=== PATIENT | male | born 1990 | race Caucasian/White ===

== ENCOUNTER 2025-03-14 08:49 | Emergency (ER) | payer OTHER, SELFPAY ==
--- OUTSIDE RECORDS SUMMARY | 2025-01-27 08:20 | XMS_ITS ---
Author Organization [facility] Address [address] [place] [address] Phone [phone] Care Team Providers Care Peoplesoft Consultant Name Role Phone Rojas Alexis Primary Care Provider [phone] Melania Nayak APRN REASON FOR VISIT MAT F/U Social History Sex Observation Social History Observation Description Sex Observation Male Encounters Date Time Type Facility Location Provider Diagnosis 01/27/2025 08:20 AM Office Visit [facility] [address] [place] [address] Melania Nayak Plan Of Treatment Next Appt Details Provider Name:Melania jacques, 03/23/2025 08:40:00 AM, [address], [place], [address], Provider Name:Anni powell, 04/01/2025 08:20:00 AM, [address], [place], [address], Medical (General) History Medical History History ICD Code chronic anxiety depression Opioid use disorder Generalized anxiety disorder Insomnia Constipation Alcohol use disorder Surgical History Surgery Date(Month/Year) Hospitalization History Reason Date(Month/Year) Touchette 10/2024 Alcohol detox, [facility], 1 Progress Notes * Kwasi MCCABEDOB:1990 (34 yo M)Acc No.[id number]:01/27/2025 UNLOCKED PROGRESS NOTE Patient: Kwasi EARLY Provider: Panda Nayak, MSN, DAVIAN, RESTAURANT ASSISTANT-C :1990 A ge:34 Y S ex:Male Date:01/27/2025 Phone: Address:[address] [place], [place] [phone] Pcp:Rojas Alexis Subjective: * Chief Complaints: * 1 . MAT F/U. * Screening: * * Medical History: Objective: * Vitals: Assessment: Plan: * Treatment: * Care Plan Details* * Electronic signature of Julienne Nayak APRN, [id number] on 03/14/2025 at 12:55 PM FUR SORTER Sign off status: Pending * Provider: NICOLE Monsalve, DAVIAN, RESTAURANT ASSISTANT-C Date: 03/29/2024 Generated for Marlo feldman/Farzana/eTransmitting on: 05/15/2024 12:55 PM FUR SORTER
--- OUTSIDE RECORDS SUMMARY | 2025-03-08 14:55 | XMS_ITS ---
Author Organization [facility] Address [address] [place] [address] Phone [phone] Care Team Providers Care Authorization Nurse Name Role Phone Rojas Alexis Primary Care Provider [phone] REASON FOR VISIT hosp need f/u psyche Social History Sex Observation Social History Observation Description Sex Observation Male Encounters Date Time Type Facility Location Provider Diagnosis 03/08/2025 02:55 PM Telephone Encounter [facility] [address] [place] [address] Rojas Alexis Plan Of Treatment Next Appt Details Provider Name:Melania jacques, 03/23/2025 08:40:00 AM, [address], [place], [address], Provider Name:Anni powell, 04/01/2025 08:20:00 AM, [address] [place], [address], Medical (General) History Medical History History ICD Code chronic anxiety depression Opioid use disorder Generalized anxiety disorder Insomnia Constipation Alcohol use disorder Surgical History Surgery Date(Month/Year) Hospitalization History Reason Date(Month/Year) Touchette 10/2024 Alcohol detox, [facility], 2024--0 1 Progress Notes * Kwasi MCCABEDOB:1990 (34 yo M)Acc No.[id number]:03/08/2025 UNLOCKED PROGRESS NOTE Patient: Kwasi EARLY :1990 A ge:34 Y S ex:Male Phone: Address:[address] [place] [address], [address] Subjective: * Chief Complaints: * H osp need f/u psyche * HPI: E R/Hospital Follow-up: ER/Hopsital/Urgent Care follow-up. Notification of ER/hospital visit from: . , Records received. I f instructed by nurse/provider, did the pt go to ER/UC? E R/Urgent Care follow-through The nurse or provider did not initiate the ER/urgent care visit. .. D ate of ER/urgent visit or hospitalization: 05/02/24. R ashleigh for the Visit: . hospital stay at [facility]. Visit Type and Location: . , Inpatient [...] . . E R/Hospital F/U appointment with [facility]: Paresh [facility] f/u appointment date: 05/10/2024with Anni. A ppointment Kept? D id the patient keep the appointment with [facility]? .. N gil completing [facility] Viridiana Cm, RN ., C [facility] Nurses .. * Medical History: * [...] recommended f/u: . ER/Hospital F/U appointment with [facility]: [facility] f/u appointment date:: 03/09/202504/01/giacomo Hutton Notification of ER/hospital visit from: ., Records received Reason for the Visit: .ho spital stay at [facility] Date of ER/urgen t visit or hospitalization: 03/01/[address] [facility] Nurses: Kate Cm RN . [place] [facility] Nurses: . If instructed by nurse/provider, did the pt go to ER/UC? ER/Urgent Care follow-throug h: The nurse or provider did not initiate the ER/urgent care visit. . Appointment Kept? Did the patient keep the appointment with [facility]?: .
--- OUTSIDE RECORDS SUMMARY | 2025-03-09 13:00 | XMS_ITS ---
Author Organization [facility] Address [address] [place] [address] Phone [phone] Care Team Providers Care Gas Pumping Station Operator Name Role Phone Rojas Alexis Primary Care Provider [phone] REASON FOR VISIT last seen on CRU [...] Provider Diagnosis 03/09/2025 01:00 PM Office Visit [facility] [place] [address] [place] [address] Rojas Alexis Plan Of Treatment Next Appt Details Provider Name:Melania jacques, 03/23/2025 08:40:00 AM, [address], [place], [address], Provider Name:Anni powell, 04/01/2025 08:20:00 AM, [address], [place], [address], Medical (General) History Medical History History ICD Code chronic anxiety depression Opioid use disorder Generalized anxiety disorder Insomnia Constipation Alcohol use disorder Surgical History Surgery Date(Month/Year) Hospitalization History Reason Date(Month/Year) [facility] 10/2024 Alcohol detox, [facility], 2024-12-0 1 Progress Notes * Kwasi MCCABEDOB:1990 (34 yo M)Acc No.[id number]:03/09/2025 UNLOCKED PROGRESS NOTE Progress Notes Patient: Kwasi EARLY Provider: Joshua Alexis APN :1990 A ge:34 Y S ex:Male Date:03/09/2025 Phone: Address:[address] [place], [place] [phone] Subjective: * Chief Complaints: * 1 . [...] * Electronic signature of Darrion Alexis on 03/14/2025 at 12:55 PM INSIDE SALES ADVERTISING EXECUTIVE Sign off status: Pending * Provider: Joshua Alexis APN Date: 1 05/10/2024 Generated for Marlo feldman/Farzana/Michael on: 05/15/2024 12:55 PM INSIDE SALES ADVERTISING EXECUTIVE
[2025-03-14 08:54] VITALS: BP 151/93; PULSE 108; RESP 16; TEMP 36.6; O2SAT 99
--- NOTE | 2025-03-14 10:43 | ED.RECABL ---
HPI - Recheck/Abnormal Lab/Rx General Chief Complaint: Recheck/Abnormal Lab/Rx Stated Complaint: med refill Time Seen by Provider: 03/14/25 09:57 Source: patient Mode of arrival: ambulatory Limitations: no limitations History of Present Illness HPI narrative: Patient is a 34-year-old male who presents to the ED needing medication refill. Patient reports he was recently admitted to [facility] for treatment of his depression and anxiety. He is currently on Lexapro and hydroxyzine, but was also started on clonazepam b.i.d. while at the facility. States he was only given a 5 day supply of this medication. States he is unable to see his psychiatrist through [place] until April 07. He does feel the clonazepam has been helping his anxiety. He denies any SI or HI. Related Data Allergies Allergy/AdvReac Type Severity Reaction Status Date / Time No Known Allergies Allergy Verified 03/14/25 09:38 Review of Systems Review of Systems: All systems reviewed & are unremarkable except as noted in HPI. All systems reviewed & are unremarkable except as noted in HPI and below Exam Narrative: GENERAL: Well appearing, well-nourished, non-toxic, in no acute distress. HEAD: Normocephalic, atraumatic. RESPIRATORY: Airway patent, respirations nonlabored. CARDIOVASCULAR: Regular rate and rhythm MUSCULOSKELETAL: Moves all extremities. No gross deformities. SKIN: Warm, dry, normal color. NEURO: A&O X3. Speech clear. Cranial nerves II-XII grossly intact. Steady gait. No ataxic movements. PSYCHIATRIC: Mildly anxious. Normal interaction. Course Vital Signs Vital signs: Vital Signs Temperature 97.8 F 03/14/25 08:54 Pulse Rate 108 H 03/14/25 08:54 Respiratory Rate 16 03/14/25 08:54 Blood Pressure 151/93 H 03/14/25 08:54 Pulse Oximetry 99 03/14/25 08:54 Oxygen Delivery Room Air 03/14/25 08:54 Temperature 97.8 F 03/14/25 08:54 Pulse Rate 85 03/14/25 11:16 Respiratory Rate 19 03/14/25 11:16 Blood Pressure 140/81 03/14/25 11:16 Pulse Oximetry 100 03/14/25 11:16 Oxygen Delivery Room Air 03/14/25 08:54 MDM MDM Narrative Medical decision making narrative: Patient presented to ED wanting medication refill of clonazepam, was recently started on this, but only given short supply. Unable to see psychiatrist until April 07. Patient does not appear acutely psychotic. Denying SI/HI. Alert and oriented, resting comfortably upon my evaluation. Advised I can only provide short course of controlled substance through the ER, but feel it is reasonable to prescribe additional 1 week refill of this medication. Advised patient will need to follow-up with psychiatrist or primary care doctor for continued refills. Patient voiced understanding of this and was very reasonable. Discussed strict return precautions. Patient discharged in stable condition. Differential Diagnosis Differential Diagnosis: Anxiety, depression, suicidal ideation, medication refill Medical Records I have reviewed the following patient records and this information was taken into consideration when formulating the assessment and plan.: previous labs, previous ER visits, previous hospitalizations and previous clinic visits Lab Data [facility] Lab Attestation statement: I personally reviewed the patient's lab results. Discharge Plan Discharge Clinical Impression: Encounter for medication refill, Anxiety Patient Disposition: Home Condition: Stable Instructions: Antibiotic Form, Anxiety (ED) Additional Instructions: Take anxiety medication as prescribed. Follow-up with your psychiatrist for further evaluation. You may also try to follow-up with primary care doctor that is listed below. Return to ED for new or worsening concerns, severe anxiety, thoughts of wanting to harm herself or anyone else, or any other symptoms of concern. Patient Language: Bulgarian Prescriptions: New clonazepam [Klonopin] 1 mg tablet 1 mg PO BID 7 Days Qty: 14 0RF Follow-up/Referrals: PHYSICIAN NOT ON STAFF,NONSTAFF [Non-Staff] Uday Miranda MD [Physician, Family Practice] Time of Disposition: 11:11
[2025-03-14 11:16] VITALS: BP 140/81; PULSE 85; RESP 19; O2SAT 100
--- OUTSIDE RECORDS SUMMARY | 2025-03-14 12:55 | XMS_ITS | Clinical Summary ---
Author Organization [facility] Address [address] [place] [address] Care Team Providers Care Promotional Model Name Role Phone No, Physician Primary Care Provider [phone] Allergies No known active allergies Medications docusate sodium (COLACE) 100 mg capsule Take 1 capsule (100 mg total) by mouth daily as needed for constipation Active hydrOXYzine (VISTARIL) 25 mg capsule Take 1 capsule (25 mg total) by mouth 3 (three) times a day as needed for anxiety 30 capsule 02/24/20 25 Active buprenorphine- naloxone (SUBOXONE) 8-2 mg per SL tablet Place 1 tablet under the tongue 4 (four) times a day 15 tablet 02/24/[address] (CYMBALTA) 20 mg capsule Take 1 capsule (20 mg total) by mouth 2 (two) times a day 60 capsule 02/24/20 25 Active escitalopram (LEXAPRO) 20 mg tablet Take 1 tablet (20 mg total) by mouth every morning 60 tablet 02/24/20 25 Active QUEtiapine XR (SEROquel XR) 150 mg 24 hr tablet Take 1 tablet (150 mg total) by mouth nightly 30 tablet 02/24/[address] (CYMBALTA) 20 mg capsule Take 1 capsule (20 mg total) by mouth 2 (two) times a day 025 Discontinued QUEtiapine XR (SEROquel XR) 150 mg 24 hr tablet Take 1 tablet (150 mg total) by mouth nightly 025 Discontinued escitalopram (LEXAPRO) 20 mg tablet Take 1 tablet (20 mg total) by mouth every morning 025 Discontinued hydrOXYzine (VISTARIL) 25 mg capsule Take 1 capsule (25 mg total) by mouth 3 (three) times a day as needed for anxiety 025 Discontinued buprenorphine- naloxone (SUBOXONE) 8-2 mg per SL tablet Place 1 tablet under the tongue 4 (four) times a day 025 Discontinued Active Problems Problem Noted Date Diagnosed Date Alcohol use disorder 02/21/2025 Assessment & Plan (02/21/2025 3:32 PM DRIP BOX TENDER): -CIWA -Electrolytes unremarkable on presentation -Warm and of consult will use Valium instead of IV Ativan Substance use disorder 02/21/2025 Assessment & Plan (02/21/2025 3:32 PM DRIP BOX TENDER): History of opioid use disorder -Continue Suboxone -UDS with benzos and cannabis Encounters Date Type Department Care Team Description 03/08/2025 11:18 PM DRIP BOX TENDER - 03/08/2025 11:59 PM DRIP BOX TENDER Hospital Encounter [facility] Emergency, Room R Discharge Disposition: Discharge to home or self care 02/23/2025 Documentation [facility] [address] [place] [address] Bree Ca 02/22/2025 [facility] Enrollment [facility] [address] [place], [place] [phone] Mark Wood, DATA ARCHITECT MANAGER 02/21/2025 1:25 PM DRIP BOX TENDER - 02/23/2025 8:15 AM DRIP BOX TENDER Hospital Encounter [facility] [address] [place] [address] Sandeep Garcia MD Shaba, Winnie, MD Alcohol use disorder (Primary Dx); Substance use disorder Discharge Disposition: Discharge to an IP Rehab facility 02/21/2025 Documentation [facility] [address] [place] [address] Chelsea Ashton 02/21/2025 Documentation [facility] [address] [place] [address] Bree Ca from Last 3 Months Social History Tobacco Use Types Packs/Day Years Used Date Smoking Tobacco: Every Day E-cigarettes Smokeless Tobacco: Never Tobacco Cessation:Ready to Q uit: Not Asked; Counseling Given: Not Answered Social Connection and Isolation Panel Answer Date Recorded In a typical week, how many times do you talk on the phone with family, friends, or neighbors? Twice a week 02/22/2025 How often do you get together with friends or re latives? Once a week 02/22/2025 How often do you attend mormon or gnosticist serv ices? Never 02/22/2025 Do you belong to any clubs o r organizations such as mormon groups, unions, fraternal or athletic groups, or school groups? No 02/22/2025 How often do you attend meet ings of the clubs or organizations you belong to? Never 02/22/2025 Marital Status Never 02/22/2025 Overall Financial Resource Strain (CARDIA) Answe r Date Recorded How hard is it for you to pa y for the very basics like food, housing, medical care, and heating? Hard 02/22/2025 Hunger Vital Sign Answer Date Recorded Within the past 12 months, y ou worried that your food would run out before you got the money to buy more. Sometimes true Within the past 12 months, t he food you bought just didn't last and you didn't have money to get more. Sometimes true 04/2024 PRAPARE - Transportation Answer Date Re corded In the past 12 months, has l ack of transportation kept you from medical appointments or from getting medications? Yes 04/2024 In the past 12 months, has l ack of transportation kept you from meetings, work, or from getting things needed for daily living? Yes 02/22/2025 Housing Stability Vital Sign Answer Dhruv e Recorded In the last 12 months, was t here a time when you were not able to pay the mortgage or rent on time? Yes 02/22/2025 In the past 12 months, how m any times have you moved where you were living? 2 02/22/2025 At any time in the past 12 m [facility], were you homeless or living in a fdc (including now)? Yes 02/22/2025 [facility] Utilities Answer Date Recorded In the past 12 months has th e electric, gas, oil, or water company threatened to shut off services in your home? Yes 02/22/2025 Personal Safety Answer Date Recorded Have you ever been in or are you currently in a harmful physical or emotional relationship or is someone making you feel afraid or unsafe? Denies 02/21/2025 Sex and Gender Information Value Date Recorded Sex Assigned at Not on file Legal Sex Male 12:52 PM CDT Gender Identity Not on file Sexual Orientation Not on file Last Filed Vital Signs Vital Sign Reading Time Taken Comments Blood Pressure 120/70 02/22/2025 10:49 PM DRIP BOX TENDER Pulse 64 02/22/2025 10:49 PM DRIP BOX TENDER Temperature 36.8 C (98.2 F) 02/22/2025 10:49 PM DRIP BOX TENDER Respiratory Rate 16 02/22/2025 10:49 PM DRIP BOX TENDER Oxygen Saturation 100% 02/22/2025 10:49 PM DRIP BOX TENDER Inhaled Oxygen Concentration - - Weight 93 kg (205 lb) 02/21/2025 11:21 AM DRIP BOX TENDER Height 175.3 cm (5' 9) 02/21/2025 8:30 PM DRIP BOX TENDER Body Mass Index 30.27 02/21/2025 11:21 AM DRIP BOX TENDER Plan of Treatment Health Maintenance Due Date Last Done Comments Depression Screening 1990 Hepatitis C Screening 1990 DTaP/Tdap/Td Vaccine (5 - Tdap) 2001 01/04/1994, 02/04/1992, 12/17/1991, Additional history exists Varicella Vaccines (1 of 2 - 13+ 2-dose series) 12/27/2003 Regular Well Visit/Exam 18-64 2008 Pneumococcal vaccine <65 (1 of 2 - PCV) 2009 HPV Vaccines (1 - 3-dose SCD M series) 2017 Influenza Vaccine (#1) 2024 Hepatitis B Screening Completed 11/03/2001 Procedures Procedure Name Priority Date/Time Associated Diagnosis Comments DRUGS OF ABUSE SCREEN, URINE WITHOUT CONFIRMATION STAT 02/21/2025 12:23 PM DRIP BOX TENDER EGFR STAT 02/21/2025 11:30 AM DRIP BOX TENDER DIFFERENTIAL AUTO STAT 02/21/2025 11: 30 AM DRIP BOX TENDER SALICYLATE LEVEL STAT 02/21/2025 11:3 0 AM DRIP BOX TENDER ETHANOL STAT 02/21/2025 11:30 AM DRIP BOX TENDER ACETAMINOPHEN LEVEL STAT 02/21/2025 1 1:30 AM DRIP BOX TENDER COMPREHENSIVE METABOLIC PANEL STAT 02/21/2025 11:30 AM DRIP BOX TENDER CBC WITH AUTO DIFFERENTIAL STAT 02/21/2025 11:30 AM DRIP BOX TENDER from Last 3 Months Results * (ABNORMAL) Drugs of Abuse Screen, Urine without Confirmation (02/21/2025 12:23 PM DRIP BOX TENDER) [facility] Amphetamine, ur Not Detected CutOff 500ng/mL Comment: Interpretive Data - Amphetamines: Samples containing greater than 500 ng/mL d-methamphetamine or other cross-reacting amphetamine compounds are reported as positive. Amphetamine immunoassays are subject to significant false positive rates due to cross-reactivity of non-amphetamine drugs. Confirmatory testing required for definitive results. Current Interpretive Data was last reviewed 2022. Barbiturates, ur Not Detected CutOff 200ng/mL [facility] ([facility]) Comment: Interpretive Data - Barbiturates: Samples containing greater than 200 ng/mL secobarbital or other cross-reacting barbiturate compounds are reported as positive. False positive and false negative results are possible. Confirmatory testing required for definitive results. Current Interpretive Data was last reviewed 2022. Benzodiazepines, ur Screen Positive, presumptive (A) CutOff 100ng/mL [facility] ([facility]) Comment: Interpretive Data - Benzodiazepines: Samples containing greater than 100 ng/mL nordiazepam or other cross-reacting compounds are reported as positive. False positive and false negative results are possible. Confirmatory testing required for definitive results. Current Interpretive Data was last reviewed 2022. Cannabinoids, ur Screen Positive, presumptive (A) CutOff 50 ng/mL [facility] ([facility]) Comment: Interpretive Data - Cannabinoids: Samples containing greater than 50 ng/mL delta-9 THC -COOH or other cross- reacting compounds are reported as positive. False positive and false negative results are possible. Confirmatory testing required for definitive results. Current Interpretive Data was last reviewed 2022. Cocaine, ur Not Detected CutOff 150ng/mL [facility] ([facility]) Comment: Interpretive Data - Cocaine: Samples containing greater than 150 ng/mL benzoylecgonine or other cross- reacting compounds are reported as positive. False positive and false negative results are possible. Confirmatory testing required for definitive results. Current Interpretive Data was last reviewed 2022. Fentanyl, Ur Not Detected CutOff 5 ng/mL [facility] ([facility]) Comment: Interpretive Data - Fentanyl: Samples containing greater than 5 ng/mL norfentanyl, fentanyl, or other cross-reacting fentanyl compounds are reported as positive. False positive and false negative results are possible. Confirmatory testing required for definitive results. Current Interpretive Data was last reviewed 2023. Methadone, ur Not Detected CutOff 300ng/mL [facility] ([facility]) Comment: Interpretive Data - Methadone: Samples containing greater than 300 ng/mL d,l-methadone or other cross-reacting compounds are reported as positive. False positive and false negative results are possible. Confirmatory testing required for definitive results. Current Interpretive Data was last reviewed 2022. Opiates, ur Not Detected CutOff 300ng/mL [facility] ([facility]) Comment: Interpretive Data - Opiates: Samples containing greater than 300 ng/mL morphine or other cross-reacting compounds are reported as positive. False positive and false negative results are possible. Confirmatory testing required for definitive results. Current Interpretive Data was last reviewed 2022. Oxycodone, ur NOT DETECTED CutOff 100ng/mL [facility] ([facility]) Comment: Interpretive Data - Oxycodone: Samples containing greater than 100 ng/mL oxycodone or other cross-reacting compounds are reported as positive. False positive and false negative results are possible. Confirmatory testing required for definitive results. Current Interpretive Data was last reviewed 2022. Phencyclidine, ur Not Detected CutOff 25 ng/mL [facility] ([facility]) Comment: Interpretive Data - Phencyclidine: Samples containing greater than 25 ng/mL phencyclidine or other cross-reacting compounds are reported as positive. False positive and false negative results are possible. Confirmatory testing required for definitive results. Current Interpretive Data was last reviewed 2022. Urine Creatinine 15 mg/dL [facility] ([facility]) Comment: Interpretive Data Urine Creatinine: < 10 mg/dL is extremely dilute = or > 10 but < 20 mg/dL is dilute = or > 20 mg/dL is normal Current Interpretive Data was last revised on 2017. Urine 02/21/2025 12:2 3 PM DRIP BOX TENDER 02/21/2025 12:25 PM DRIP BOX TENDER Narrative [facility]A QUINTA[facility] ([facility]) - 02/21/2025 1:10 PM DRIP BOX TENDER Drug of Abuse screening is performed by immunoassay for medical purposes only. This is not to be used for Pain Management purposes. Malick [facility] URINE ORDERABLES Final R esult Performing Organization Address [facility] Co de Phone Number ZOILA QUINTANA ([place]) [address] [facility] [place] [address] * eGFR (02/21/2025 11:30 AM DRIP BOX TENDER) eGFR >90 >=60 mL/min/1. 73 m2 Comment: Interpretive Data Reference Interval Normal >/= 90 mL/min/1.73m2 Mildly decreased* 60 - 89 mL/min/1.73m2 Mildly to moderately decreased 45 - 59 mL/min/1.73m2 Moderately to severely decreased 30 - 44 mL/min/1.73m2 Severely decreased 15 - 29 mL/min/1.73m2 Kidney Failure < 15 mL/min/1.73m2 *Relative to young adult level Estimated glomerular filtration rate is determined by the 2020 CKD-EPI equation recommended by the National Kidney Foundation (A Unifying Approach to GFR Estimation: Recommendations of the NKF-ASK Task Force on Reassessing the Inclusion of Race in Diagnosing Kidney Disease, JASN 2020). The CKD-EPI equation should not be used for patients with unstable renal function and has not been validated in children and those over 70. Current interpretive data was last reviewed 2021. Blood 02/21/2025 11:3 0 AM DRIP BOX TENDER 02/21/2025 11:34 AM DRIP BOX TENDER Mal[facility] BLOOD ORDERABLES Final R esult Performing Organization Address [facility] Co de Phone Number ZOILA QUINTANA ([place]) [address] [facility] [place] [address] * Differential, auto (02/21/2025 11:30 AM DRIP BOX TENDER) Neutrophil abs 4.56 1.50 - 6.50 K/cumm Imm gran abs 0.01 0.00 - 0.10 K/cumm [facility] ([facility]) Lymphocyte abs 2.59 0.80 - 3.30 K/cumm [facility] ([facility]) Monocyte abs 0.52 0.20 - 0.80 K/cumm [facility] ([facility]) Eosinophil abs 0.27 0.00 - 0.50 K/cumm [facility] ([facility]) Basophil abs 0.03 0.00 - 0.10 K/cumm [facility] ([facility]) Neutrophil pct 57.1 % [facility] ([facility]) Comment: Interpretive Data Percent cell count reference ranges are not reported, since discordance with absolute values may lead to misinterpretation of CBC data. Current Interpretive Data was last revised on 2017. Imm gran pct 0.1 % [facility] ([facility]) Comment: Interpretive Data Percent cell count reference ranges are not reported, since discordance with absolute values may lead to misinterpretation of CBC data. Current Interpretive Data was last revised on 2017. Lymphocyte pct 32.5 % [facility] ([facility]) Comment: Interpretive Data Percent cell count reference ranges are not reported, since discordance with absolute values may lead to misinterpretation of CBC data. Current Interpretive Data was last revised on 2017. Monocyte pct 6.5 % [facility] ([facility]) Comment: Interpretive Data Percent cell count reference ranges are not reported, since discordance with absolute values may lead to misinterpretation of CBC data. Current Interpretive Data was last revised on 2017. Eosinophil pct 3.4 % [facility] ([facility]) Comment: Interpretive Data Percent cell count reference ranges are not reported, since discordance with absolute values may lead to misinterpretation of CBC data. Current Interpretive Data was last revised on 2017. Basophil pct 0.4 % [facility] ([facility]) Comment: Interpretive Data Percent cell count reference ranges are not reported, since discordance with absolute values may lead to misinterpretation of CBC data. Current Interpretive Data was last revised on 2017. Blood 02/21/2025 11:3 0 AM DRIP BOX TENDER 02/21/2025 11:34 AM DRIP BOX TENDER Mal[facility] BLOOD ORDERABLES Final R esult [facility] ([facility]) 1 [facility] Department [place] [address] * (ABNORMAL) CBC with auto differential (02/21/2025 11:30 AM DRIP BOX TENDER) WBC 7.98 3.80 - 9.90 K/cumm Hgb 14.2 13.0 - 17.5 g/dL [facility] ([facility]) Hct 42.0 38.9 - 50.3 % [facility] ([facility]) Plt 202 150 - 400 K/cumm [facility] ([facility]) MPV 10.6 9.1 - 12.3 fL [facility] ([facility]) RBC 4.89 4.30 - 5.80 M/cumm [facility] ([facility]) MCV 85.9 81.3 - 96.4 fL [facility] ([facility]) MCH 29.0 27.1 - 33.3 pg [facility] ([facility]) MCHC 33.8 32.3 - 35.7 g/dL [facility] ([facility]) RDW CV 12.6 11.1 - 14.9 % [facility] ([facility]) RDW SD 39.4 35.7 - 48.1 fL [facility] ([facility]) NRBC abs 0.02(H) 0.00 - 0.01 K/cumm [facility] ([facility]) Blood 02/21/2025 11:3 0 AM DRIP BOX TENDER 02/21/2025 11:34 AM DRIP BOX TENDER Malick [facility] BLOOD ORDERABLES Final R esult [facility] ([facility]) 1 [facility] [place] [address] * Ethanol (02/21/2025 11:30 AM DRIP BOX TENDER) Ethanol <10 <=10 mg/dL Comment: Interpretive Data Legal limit of intoxication > or = 80 mg/dL Levels > or = 400 mg/dL are potentially TOXIC. Current interpretive data was last revised on 2018. Blood 02/21/2025 11:3 0 AM DRIP BOX TENDER 02/21/2025 11:34 AM DRIP BOX TENDER Malick [facility] BLOOD ORDERABLES Final R esult [facility] ([place]) [address] [facility] [place] [address] * Acetaminophen level (02/21/2025 11:30 AM DRIP BOX TENDER) Acetaminophen <5 <=5 mcg/mL Comment: Markedly elevated levels of Acetaminophen and it's metabolites may lead to false low test results for cholesterol, HDL, triglycerides and uric acid with the manufacturers test methods used by our lab. Interpretive Data Significant hepatic injury may occur and treatment with n-acetyl cysteine is generally recommended if the acetaminophen level exceeds: 150 mcg/mL at 4 hours after ingestion 75 mcg/mL at 8 hours after ingestion 38 mcg/mL at 12 hours after ingestion 19 mcg/mL at 16 hours after ingestion Consult toxicology or poison control ([phone]) for unknown ingestion time. Current interpretive data was last revised 2022. Blood 02/21/2025 11:3 0 AM DRIP BOX TENDER 02/21/2025 11:34 AM DRIP BOX TENDER Malick [facility] BLOOD ORDERABLES Final R esult [facility] ([place]) 1 [facility] [place] [address] * Salicylate level (02/21/2025 11:30 AM DRIP BOX TENDER) Salicylate <5.0 <=5.0 mg/dL Comment: Interpretive Data Toxic: 30 mg/dL or greater. Current interpretive data was last revised 2022. Blood 02/21/2025 11:3 0 AM DRIP BOX TENDER 02/21/2025 11:34 AM DRIP BOX TENDER us Malick [facility] LAB BLOOD ORDERABLES Final R esult [facility] ([facility]) 1 [facility] Department [place] [address] * Comprehensive metabolic panel (02/21/2025 11:30 AM DRIP BOX TENDER) Sodium 139 135 - 145 mmol/L Potassium, pl 3.9 3.3 - 4.9 mmol/L [facility] ([facility]) Chloride 99 97 - 110 mmol/L [facility] ([facility]) CO2 31 22 - 32 mmol/L [facility] ([facility]) Anion gap 9 2 - 15 mmol/L [facility] ([facility]) BUN 11 6 - 25 mg/dL [facility] ([facility]) Creatinine 0.86 0.80 - 1.30 mg/dL [facility] ([facility]) Glucose 102 70 - 199 mg/dL [facility] ([facility]) Comment: Interpretive Data Fasting glucose >/= 126 mg/dl is diagnostic for diabetes. Fasting is defined as no caloric intake for at least 8 hours. Fasting glucose between 100 mg/dl to 125 mg/dl is diagnostic of prediabetes. In a patient with classic symptoms of hyperglycemia or hyperglycemic crisis, a random glucose >/= 200 mg/dl is diagnostic for diabetes. In the absence of unequivocal hyperglycemia, results should be confirmed by repeat testing. The classification and Diagnosis of Diabetes Diabetes Care 2021; 46: S19-S40. Current interpretive data was last revised 2022. Calcium 9.4 8.5 - 10.3 mg/dL [facility] ([facility]) Bilirubin, total 0.4 0.1 - 1.2 mg/dL [facility] ([facility]) Protein, pl 7.0 6.5 - 8.5 g/dL [facility] ([facility]) Albumin 4.6 3.5 - 5.0 g/dL [facility] ([facility]) Alk phos 68 40 - 130 Units/L [facility] ([facility]) ALT 17 7 - 55 Units/L [facility] ([facility]) AST 28 10 - 50 Units/L [facility] ([facility]) Blood 02/21/2025 11:3 0 AM DRIP BOX TENDER 02/21/2025 11:34 AM DRIP BOX TENDER Malick [facility] BLOOD ORDERABLES Final R esult ZOILA QUINTANA ([place]) 1 [facility] Department [place] [address] from Last 3 Months Insurance IDPA Advance Directives For more information, please contact: [phone] * Full Code (Latest Code Status on File) Date Activated Date Inactivated Comments 02/21/2025 4:08 PM 02/23/2025 12:20 PM Care Teams Promotional Model Relationship Specialty Start Date End Date No, Physician PCP - General 10/27/24
--- OUTSIDE RECORDS SUMMARY | 2025-03-14 12:55 | XMS_ITS | Patient Health Record ---
Author Organization [facility] Address [address] [place] [address] Phone [phone] Care Team Providers Care Mirror Polisher Name Role Phone Rojas Alexis Primary Care Provider [phone] Melania Nayak APRN Unavailable [phone] Tyler Smiley Unavailable [phone] Anni Castillo Unavailable Libertad Wang Unavailable [phone] Allergies No Known Allergies Results Component Value Reference Range Flag Notes Breathalyzer Order date: 02/23/2025 Reviewed date:02/23/2025 01:23:17 PM Interpretation: Performing Lab: Notes/Report: JOSÉ MIGUEL .000 14 Panel Urine Drug Screen Order date: 02/23/2025 Reviewed date:02/23/2025 01:23:17 PM Interpretation: Performing Lab: Notes/Report: THC POS ANJELICA neg MOP (OPI) neg AMP neg MET neg BAR neg BZO POS MDMA neg MTD neg OXY neg PCP neg BUP POS TCA neg FTY neg Chlamydia trachomatis,Neisse charu gonorrhoeae, and Trichomonas vaginalis, ROX ([id number]) Order date: 02/23/2025 Reviewed date:02/25/2025 08:25:37 AM Interpretation: Performing Lab:[facility], [address] [place] [address] Jan Cortes, Phone - [phone], Director - Ana Notes/Report: Chlamydia by ROX Negative Negative Gonococcus by ROX Negative Negative Trich vag by ROX Negative Negative Rapid Plasma Reagin (RPR) Te st With Reflex to Quantitative RPR and Confirmatory Treponema pallidum Antibodies Order date: 02/23/2025 Reviewed date:02/25/2025 08:25:37 AM Interpretation: Performing Lab:[facility], Phone - [phone], Director - Ana Notes/Report: RPR Non Reactive Non Reactive 14 Panel Urine Drug Screen Order date: 12/30/2024 Reviewed date:12/30/2024 03:10:57 PM Interpretation: Performing Lab: Notes/Report: THC neg ANJELICA neg MOP (OPI) neg AMP neg MET neg BAR neg BZO neg MDMA neg MTD neg OXY neg PCP neg BUP pos TCA neg FTY neg 14 Panel Urine Drug Screen Order date: 11/25/2024 Reviewed date:11/25/2024 11:20:37 AM Interpretation: Performing Lab: Notes/Report: THC neg ANJELICA neg MOP (OPI) neg AMP neg MET neg BAR neg BZO neg MDMA neg MTD neg OXY neg PCP neg BUP POS TCA neg FTY neg TSH+Free T4 Order date: 12/09/2024 Reviewed date:12/31/2024 08:38:59 AM Interpretation: Performing Lab:[facility], [address] [place] [address], Phone - [phone], Director - Jane Notes/Report: TSH-ICMA 2.5 Reference Range: Non- Adult 0.450-4.500 Free T4 by Dialysis/Brim Presser 0.67 L This test was developed and its performance characteristics determined by [facility]. It has not been cleared or approved by the Food and Drug Administration. Reference Range: Pubertal Children and Adults: 0.8 - 1.7 CBC With Differential/Platel et* Order date: 11/09/2024 Reviewed date:11/12/2024 08:05:27 AM Interpretation: Performing Lab:[facility], [address] [facility], Phone - [phone], Director - Kvng Notes/Report: WBC 7.4 3.4-10.8 x10E3/uL RBC 4.82 4.14-5.80 x10E6/uL Hemoglobin 14.7 13.0-17.7 g/dL Hematocrit 45.1 37.5-51.0 % MCV 94 79-97 fL MCH 30.5 26.6-33.0 pg MCHC 32.6 31.5-35.7 g/dL RDW 12.9 11.6-15.4 % Platelets 202 150-450 x10E3/uL Neutrophils 67 Not Estab. % Lymphs 23 Not Estab. % Monocytes 8 Not Estab. % Eos 2 Not Estab. % Basos 0 Not Estab. % Neutrophils (Absolute) 4.9 1.4-7.0 x10E3/uL Lymphs (Absolute) 1.7 0.7-3.1 x10E3/uL Monocytes(Absolute) 0.6 0.1-0.9 x10E3/uL Eos (Absolute) 0.2 0.0-0.4 x10E3/uL Baso (Absolute) 0.0 0.0-0.2 x10E3/uL Immature Granulocytes 0 Not Estab. % Immature Grans (Abs) 0.0 0.0-0.1 x10E3/uL CMP 14 Comprehensive Metabol ic Panel* Order date: 11/09/2024 Reviewed date:11/12/2024 08:05:27 AM Interpretation: Performing Lab:[email or web address] [place], [address] [facility] [place], Phone - [phone], Director - Kvng Notes/Report: Glucose 74 70-99 mg/dL BUN 13 6-20 mg/dL Creatinine 0.78 0.76-1.27 mg/dL eGFR 121 >59 mL/min/1.73 BUN/Creatinine Ratio 17 9-20 Sodium 138 134-144 mmol/L Potassium 4.4 3.5-5.2 mmol/L Chloride 97 96-106 mmol/L Carbon Dioxide, Total 26 20-29 mmol/L Calcium 9.5 8.7-10.2 mg/dL Protein, Total 6.8 6.0-8.5 g/dL Albumin 4.2 4.1-5.1 g/dL Globulin, Total 2.6 1.5-4.5 g/dL Bilirubin, Total 0.3 0.0-1.2 mg/dL Alkaline Phosphatase 80 44-121 IU/L AST (SGOT) 50 0-40 IU/L H ALT (SGPT) 89 0-44 IU/L H HIV Screen *HIV 1, 2 Ab, p24 Ag ([id number]) Order date: 11/09/2024 Reviewed date:11/12/2024 08:05:27 AM Interpretation: Performing [facility], Phone - [phone], Director - [facility] Notes/Report: HIV Ab/p24 Ag Screen Non Reactive Non Reactive HIV-1/HIV-2 antibodies and HIV-1 p24 antigen were NOT detected. There is no laboratory evidence of HIV infection. HIV Negative QuantiFERON-TB Gold Plus ([id number]) Order date: 11/09/2024 Reviewed date:11/12/2024 08:05:27 AM Interpretation: Performing Lab:[facility], [address] [facility], Phone - [phone], Director - [facility] Notes/Report: QuantiFERON Incubation Incubation performed. QuantiFERON-TB Gold Plus Negative Negative No response to M tuberculosis antigens detected. Infection with M tuberculosis is unlikely, but high risk individuals should be considered for additional testing (ATS/IDSA/CDC Clinical Practice Guidelines, 2017). The reference range is an Antigen minus Nil result of <0.35 IU/mL. Chemiluminescence immunoassay methodology QuantiFERON Criteria QuantiFERON-TB Gold Plus is a qualitative indirect test for M tuberculosis infection (including disease) and is intended for use in conjunction with risk assessment, radiography, and other medical and diagnostic evaluations. The QuantiFERON-TB Gold Plus result is determined by subtracting the Nil value from either TB antigen (Ag) value. The Mitogen tube serves as a control for the test. QuantiFERON TB1 Ag Value 0.04 QuantiFERON TB2 Ag Value 0.05 QuantiFERON Nil Value 0.04 QuantiFERON Mitogen Value >10.00 Breathalyzer Order date: 11/09/2024 Reviewed date:11/09/2024 10:03:02 AM Interpretation: Performing Lab: Notes/Report: JOSÉ MIGUEL 0.000 Hepatitis C Virus Antibody w /Rflx to Quantitative Real-time PCR ([id number]) Order date: 11/09/2024 Reviewed date:11/12/2024 08:05:27 AM Interpretation: Performing Lab:[facility], [address] [facility], Phone - [phone], Director - Kvng Notes/Report: HCV Ab Non Reactive Non Reactive Interpretation: Not infected with HCV unless early or acute infection is suspected (which may be delayed in an immunocompromised individual), or other evidence exists to indicate HCV infection. Hepatitis B Surface Antigen (HBsAg Screen) Order date: 11/09/2024 Reviewed date:11/12/2024 08:05:27 AM Interpretation: Performing Lab:[facility], [address] [facility], [place], Phone - [phone], Director - Kvng Notes/Report: HBsAg Screen Negative Negative 14 Panel Urine Drug Screen Order date: 11/09/2024 Reviewed date:11/09/2024 10:10:44 AM Interpretation: Performing Lab: Notes/Report: THC POS ANJELICA neg MOP (OPI) neg AMP neg MET neg BAR neg BZO neg MDMA neg MTD neg OXY nweg PCP neg BUP POS TCA neg FTY neg Reason For Referral No Information Medications Medication SIG (Take, Route, Frequency, Duration) Notes Start Date End Date Diagnosis (ICD Code) Status hydrOXYzine Pamoate 25 MG Capsule 1-2 capsules [...] examination (ICD_10 - Z00.00) Active QUEtiapine Fumarate 150 MG Tablet 1 tablet [...] Opioid use disorder (ICD_10 - F11.99) Active QUEtiapine Fumarate 25 MG Tablet 1/2 to 1 tablet as needed Orally twice a day; Duration: 30 days 02/24/2025 Active hydrOXYzine Pamoate 25 mg Capsule TAKE 1 CAPSULE BY MOUTH THREE TIMES A DAY NEEDED; Duration: 30 Opioid use disorder (ICD_10 - F11.99) Active traZODone HCl 50 MG Tablet 1 tablet at bedtime as needed Orally Once a day; Duration: 30 days 02/24/2025 Active Nicotine Polacrilex 4 MG Lozenge 1 lozenge as needed for nicotine cravings Mouth/Throat Up to once per hour (maximum of 15 lozenges per day); Duration: 7 days 02/23/2025 Adult general medical examination (ICD_10 - Z00.00) Active Social History Tobacco Use: Social History Observation Description Date Details (start date - stop date) Current Smoker NA - NA Sex Observation Social History Observation Description Sex Observation Male SDOH Assessments Date Tool Assessment Assessment LOINC Value Assessment Notes Goals Interventions General Notes 02/24 YOVANNY TRIMBLE (LOIN C: 80482 -5) Total Score : 13 Please specify Case Management Follow-up Occupation: Starting new job at [employer] Occupation: Working five to six days a week Group meetings: Attends five meetings per week for recovery contract Living situation: Lives with seven other people Occupation: Currently employed, working second shift Transportat ion: No car, difficulty attending meetings Living situation: Stayed in hotel for 2-3 weeks after eviction from [facility] Drug use: Refused drug test, no substances in system at time of test Alcohol use: Relapsed, drinking daily for three weeks, up to 15 drinks per day, last drink three days ago Date Completed/Updated: 02/23/2025 What is your current housing situation? 02699-6 I do not have housing (staying with others, in a hotel, in a group home, living outside on the street, on a beach, or in a park) (VQ67924-6) Are you worried about losing your housing? 90900-0 No (LA32-8) What is the highest level of school that you have finished? 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 Check all that apply 42345-8 Food (VB74743-4) Clothing (TJ34019-2) Utilities (FF45670-4) Medicine or any health care (medical, dental, mental health or vision) (OW97367-0) Has lack of transportation k ept you from medical appointments, meetings, work or from getting things needed for daily living? 54887-8 Yes, it has kept me from medical appointments or from getting my medications (UO20484-3) Yes, it has kept me from non-medical meetings, appointments, work, or getting things needed for daily living (JX60335-7) How often do you see or talk to people that you care about and feel close to? (For example: talking to friends on the phone, visiting friends or family, going to latter day or club meetings) 89258-7 More than 5 times a week (SD74547-2) How stressed are you? Stress is when someone feels tense, nervous, anxious, or can\t sleep at night because their mind is troubled 82692-2 Very much (JF73935-9) In the past year have you sp ent more than 2 nights in a row in a intermediate, custodial, halfway center, or juvenile correctional facility? 37457-9 No (LA32-8) Do you feel physically and e motionally safe where you currently live? 30329-9 No (LA32-8) In the past year, have you b een afraid of your partner or ex-partner? 54322-8 No (LA32-8) Are you a refugee? I choose not to answer this question What country are you from? I choose not to answer this question PRAPARE Score: 13 Enabling Services Provided? Yes Social History Social Determinants Social Info Question Answer Notes PRAPARE Date Completed/Updated: 02/23/2025 What is your current housing situation? I do not have housing (staying with others, in a hotel, in a group home, living outside on the street, on a beach, or in a park) Are you worried about losing your housing? No What is the highest level of school that you have finished? 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 Check all that apply Food,Clothing,Utilities,Medicine or any health care (medical, dental, mental health or vision) Has lack of transportation k ept you from medical appointments, meetings, work or from getting things needed for daily living? Yes, it has kept me from medical appointments or from getting my medications,Yes, it has kept me from non-medical meetings, appointments, work, or getting things needed for daily living How often do you see or talk to people that you care about and feel close to? (For example: talking to friends on the phone, visiting friends or family, going to latter day or club meetings) More than 5 times a week How stressed are you? Stress is when someone feels tense, nervous, anxious, or can\t sleep at night because their mind is troubled Very much In the past year have you sp ent more than 2 nights in a row in a intermediate, custodial, halfway center, or juvenile correctional facility? No Are you a refugee? I choose not to answer this q uestion What country are you from? I choose not to answe r this question Do you feel physically and e motionally safe where you currently live? No In the past year, have you b een afraid of your partner or ex-partner? No PRAPARE Score: 13 Enabling Services Provided? Yes Please specify Case Management Follow-up Miscellaneous Social Info Question Answer Notes Method of learning: Preferred method of learning: Reading Primary Social History Social Info Question Answer Notes Tobacco Use - do not use Tobacco Use: Status Reviewed with Patient Tobacco Use Status Reviewed on: 02/23/2025 Single Question Alcohol Screening How ma ny times in the past year have you had (4 for women, or 5 for men) or more drinks in a day? 0 Employment Status Employment Status: Unemployed Illicit Substance Usage Illicit Substance Usage: Yes Substance Used: Heroin,Methamphetamine Alcohol Use Alcohol Use Frequency: Monthly or less Tobacco Use: Social Info Question Answer Notes Tobacco Control (Standard) Tobacco use: Current smoker Section Notes: Occupation: Starting new job at [employer] Occupation: Working five to six days a week Group meetings: Attends five meetings per week for recovery contract Living situation: Lives with seven other people Occupation: Currently employed, working second shift Transportation: No car, difficulty attending meetings Living situation: Stayed in hotel for 2-3 weeks after eviction from [facility] Drug use: Refused drug test, no substances in system at time of test Alcohol use: Relapsed, drinking daily for three weeks, up to 15 drinks per day, last drink three days ago Problems Problem Type SNOMED Code ICD Code Dates Problem Status W/U Status Risk Notes Problem Substance abuse (9966549865) Substance abuse (F19.10) Added On:11/09 Active confirmed Problem Social anxiety disorder (91072237) Social anxiety disorder (F40.10) Added On:11/11 Active confirmed Problem Generalized anxiety disorder (69442460) NIDA (generalized anxiety disorder) (F41.1) Added On:11/11 Active confirmed Problem Thyroid disorder screening (347997536) Screening for thyroid disorder (Z13.29) Added On:11/11 Active confirmed Problem Overweight (992022832) Over weight (E66.3) Added On:11/09 Active confirmed Problem Obesity (833066599) Obesity (BMI 30-39.9) (E66.9) Added On:12/02 Active confirmed Problem Subclinical hyperthyroidism (901127983) Subclinical hyperthyroidism (E05.90) Added On:11/11 Active confirmed Problem Mental health problem (939842445) Mental health problem (F48.9) Added On:02/23 Active confirmed Problem Physical examination, complete (60207094) Adult general medical examination (Z00.00) Added On:11/09 Active confirmed Problem History of hyperthyroidism (313914953) History of hyperthyroidism (Z86.39) Added On:11/11 Active confirmed Problem Opioid use disorder (2805700273) Opioid use disorder (F11.99) Added On:11/16 Active confirmed Problem Low back pain (925189982) Low back pain, unspecified (M54.50) Added On:11/09 Active confirmed Vital Signs Vital Sign Value Notes Appt Date Heart Rate 86 /min 02/24/2025 Temperature 98.3 degrees Fahrenheit 06/2024 Respiratory Rate 18 /min 02/24/2025 Oximetry 99 % 02/24/2025 Blood pressure diastolic 60 mm Hg 06/2024 Height 69 in 02/24/2025 Blood pressure systolic 110 mm Hg 06/2024 Weight 207.6 lbs 02/24/2025 BMI 30.65 kg/m2 02/24/2025 Encounters Date Time Type Facility Location Provider Diagnosis 5 09:00 AM Office Visit, New Pt., Level 3 (33570) [place] [address] [place] [address] Rojas Alexis Adult general medical examination Z00.00 ; Over weight E66.3 ; Low back pain, unspecified M54.50 and Diarrhea R19.7 5 09:40 AM Office Visit [facility] [address] [facility] [place] [address] Libertad Wang Substance abuse F19.10 and Over weight E66.3 5 08:40 AM Office Visit, Est Pt., Level 4 (68907) [place] [address] [place] [address] Anni Castillo Social anxiety disorder F40.10 ; NIDA (generalized anxiety disorder) F41.1 and Over weight E66.3 5 11:20 AM Office Visit, Est Pt., Level 3 (97442) [facility] [place] [address] Melania Nayak Opioid use disorder F11.99 ; Over weight E66.3 and Dental abscess K04.7 5 11:20 AM Office Visit, Est Pt., Level 3 (21510) [facility] [place] [address] Melania Nayak Opioid use disorder F11.99 and Over weight E66.3 5 10:20 AM Office Visit, Est Pt., Level 3 (49345) [facility] [place] [address] Alexiaia Headeline Opioid use disorder F11.99 and Obesity (BMI 30-39.9) E66.9 5 08:20 AM Office Visit [facility] [place] [address] Rojas Alexis 5 10:20 AM Office Visit, Est Pt., Level 3 (49308) [facility] [address] [facility] [place] [address] Jenia Heavena Opioid use disorder F11.99 and Over weight E66.3 5 03:00 PM Office Visit, Est Pt., Level 3 (23429) [facility] [address] [facility] [place] [address] Jenia Heavens Opioid use disorder F11.99 and Obesity (BMI 30-39.9) E66.9 5 08:20 AM Office Visit, Est Pt., Level 3 (61951) [facility] [address] [place] [address] Jenia Heavena Opioid use disorder F11.99 ; Social anxiety disorder F40.10 and Obesity (BMI 30-39.9) E66.9 5 09:20 AM Office Visit, Est Pt., Level 4 (73100) [facility] [address] [facility] [place] [address] Rojas Alexis Over weight E66.3 ; Adult general medical examination Z00.00 and Unprotected sex Z72.51 5 10:00 AM Office Visit [facility] [place] [address] Libertad Wang Over weight E66.3 ; Substance abuse F19.10 and Mental health problem F48.9 5 09:40 AM Office Visit, Est Pt., Level 3 (34295) [facility] [address] [facility] [place] [address] Melania Nayak Opioid use disorder F11.99 5 02:55 PM Telephone Encounter [facility] [address] [facility] [place] [address] Rojas Alexis 5 01:31 PM Telephone Encounter [address] [place] [address] Tyler Smiley 5 11:51 AM Telephone Encounter [place] [address] [facility] [place] [address] Rojas Alexis Screening for thyroid disorder Z13.29 5 08:40 AM Telephone Encounter [place] [address] [facility] [place] [address] Anni Castillo 5 10:47 AM Telephone Encounter [place] [address] [place] [address] Anni Castillo 5 11:51 AM Telephone Encounter [facility] [address] [address] Melania Nayak Adult general medical examination Z00.00 and Opioid use disorder F11.99 5 03:13 PM Telephone Encounter [facility] [address] [facility] [place] [address] Anni Castillo Social anxiety disorder F40.10 5 10:46 AM Telephone Encounter [address] [place] [address] Anni Castillo Opioid use disorder F11.99 and Social anxiety disorder F40.10 5 08:02 AM Telephone Encounter [facility] [place] [address] Melania Nayak 5 02:08 PM Telephone Encounter [facility] [place] [address] Rojas Alexis 5 03:27 PM Telephone Encounter [address] [place] [address] Alexiadoug Trentonadeline 09:48 AM Telephone Encounter [place] [address] [place] [address] Anni Castillo Assessments Encounter Date Diagnosis (ICD Code) Assessment Notes Treatment Notes Section Notes 11/09/2024 Substance abuse (ICD-10 - F19.10) 11/11/2024 Social anxiety disorder (ICD-10 - F40.10) Continue current medication. He is interesting in restarting Klonopin. Discussed Duloxetine. He does not want anymedication added other than Klonopin. Continue services as scheduled. Labs completed recently. May self-administer medications or be administered own oral medications per [place] protocols. Provided informed consent with understanding of side effects, adverse effects, risks and benefits as well as alternative treatments as previously discussed and with the above recommended medications & other aspects of the treatment program. Agrees to return sooner if symptoms worsen or suicidal or homicidal ideations occur. 12/30/2024 Social anxiety disorder (ICD-10 - F40.10) 11/11/2024 Screening for thyroid disorder (ICD-10 - Z13.29) 11/09/2024 Over weight (ICD-10 - E66.3) 11/16/2024 Over weight (ICD-10 - E66.3) 11/25/2024 Over weight (ICD-10 - E66.3) 12/16/2024 Over weight (ICD-10 - E66.3) 02/23/2025 Over weight (ICD-10 - E66.3) 02/23/2025 Over weight (ICD-10 - E66.3) 12/02/2024 Obesity (BMI 30-39.9) (ICD-10 - E66.9) 12/30/2024 Obesity (BMI 30-39.9) (ICD-10 - E66.9) 11/09/2024 Adult general medical examination (ICD-10 - Z00.00) Admit to the Mental Health/Crisis Residential Unit and initiate standing/protocol orders: The following PRN medications may be self-administered by patients under the supervision of approved staff or administered by nursing staff: Ibuprofen 200mg, 2-4 tablets by mouth (with food) every 6 hours as needed for pain (unless on lithium). (NOTE: Ibuprofen and acetaminophen may be given together, but alternating is recommended for continuous pain relief. Guaifenesin 400 mg, 1 tablet by mouth every four hours as needed for cough and chest congestion (take with large glass of water). Loratadine 10 mg, 1 tablet by mouth daily as needed for allergies, watery itchy eyes, or sinus drainage. Throat Lozenges, up to 4 tablets by mouth every three to four hours as needed for sore throat. Antacid tablets, 1-2 tablets by mouth every one to two hours as needed for indigestion or heart burn. If the client prefers liquid, could use: Liquid Antacid : 1 ounce by mouth up to four times daily as needed for indigestion or heartburn Omeprazole 20mg, 1 capsule by mouth once daily for 14 days for frequent heartburn (frequent heartburn is more than 2 episodes per week). Do not exceed 14 days. Do not give to client already taking a proton-pump inhibitor: esomeprazole (Nexium), lansoprazole (Prevacid), pantoprazole (Protonix), rabeprazole (Aciphex), dexlansoprazole (Dexilant) Zofran ODT disintegrating (under the tongue) 4 mg, 1-2 tablets every 8 hours as needed for nausea/vomiting. Milk of Magnesia (MOM): 1 ounce (30 milliliters) by mouth every day as needed for constipation. OR Miralax: Stir and fully dissolve 17 grams (1 packet or 1 capful to measured line) in any 4 to 8 ounces of beverage then drink once daily for constipation. Do not use for more than 7 days. OR Docusate 100 mg, 1 capsule twice daily as needed for constipation Hydrocortisone 1% Cream, apply topically (to the skin) to the affected area up to three times daily as needed for itching or inflammation (avoid eyes and genitals). 2% Antifungal Cream, apply topically (to the skin) as directed as needed to affected areas for athlete's foot or jock itch. Triple Antibiotic Ointment, apply topically (to the skin) up to three times daily as needed for minor cuts and scrapes. Carmex or Chapstick, apply topically (to the skin) as needed for chapped lips and skin. Orajel, apply to affected areas as needed for mouth or tooth pain. Lubricating Eye Drops, instill 1-2 drops to the affected eye(s) as needed for dry/irritated eye(s). Hemorrhoid medications, apply to affected area according to directions as needed for hemorrhoid discomfort and itch. Nix (Permethrin 1%) cream 2 ounces, apply topically (to the skin) as directed as needed for head lice. Sunscreen 30 SPF, Apply to exposed skin prior to exposure to sun. The following PRN medications must be approved by nursing staff before self-administration by patients: Diphenhydramine 25 mg, 2 tablets by mouth every 4 hours as needed for allergic reaction or itchy rash. Caution: Do not use hydroxyzine within 4 hours of diphenhydramine and vice versa. Loperamide 2 mg capsules, may give two capsules by mouth for the initial dose, followed by one capsule up to 3 times a day as needed for diarrhea. Acetaminophen 500 mg, 1 - 2 tablets by mouth every six hours as needed for pain. (NOTE: Ibuprofen and acetaminophen may be given together, but alternating is recommended for continuous pain relief). Oxygen-May administer oxygen 2L/min via nasal cannula if O2 saturation is less than 92%, AND client complains of shortness of breath. Target O2 saturation is 94-98%. Caution: Remember too much oxygen can be detrimental to a client with COPD. Oxygen is a drug and should be delivered by trained staff only. Nurses may remove superficial splinters and sutures from skin lacerations. May apply gauze or bandages to any weeping wounds. Contact nursing if there is pus, a foul odor, increased pain/redness/swelling, or if soaking through bandages. 12/30/2024 Adult general medical examination (ICD-10 - Z00.00) 02/23/2025 Adult general medical examination (ICD-10 - Z00.00) Admit to the Mental Health/Crisis Residential Unit and initiate standing/protocol orders: The following PRN medications may be self-administered by patients under the supervision of approved staff or administered by nursing staff: Ibuprofen 200mg, 2-4 tablets by mouth (with food) every 6 hours as needed for pain (unless on lithium). (NOTE: Ibuprofen and acetaminophen may be given together, but alternating is recommended for continuous pain relief. Guaifenesin 400 mg, 1 tablet by mouth every four hours as needed for cough and chest congestion (take with large glass of water). Loratadine 10 mg, 1 tablet by mouth daily as needed for allergies, watery itchy eyes, or sinus drainage. Throat Lozenges, up to 4 tablets by mouth every three to four hours as needed for sore throat. Antacid tablets, 1-2 tablets by mouth every one to two hours as needed for indigestion or heart burn. If the client prefers liquid, could use: Liquid Antacid : 1 ounce by mouth up to four times daily as needed for indigestion or heartburn Omeprazole 20mg, 1 capsule by mouth once daily for 14 days for frequent heartburn (frequent heartburn is more than 2 episodes per week). Do not exceed 14 days. Do not give to client already taking a proton-pump inhibitor: esomeprazole (Nexium), lansoprazole (Prevacid), pantoprazole (Protonix), rabeprazole (Aciphex), dexlansoprazole (Dexilant) Zofran ODT disintegrating (under the tongue) 4 mg, 1-2 tablets every 8 hours as needed for nausea/vomiting. Milk of Magnesia (MOM): 1 ounce (30 milliliters) by mouth every day as needed for constipation. OR Miralax: Stir and fully dissolve 17 grams (1 packet or 1 capful to measured line) in any 4 to 8 ounces of beverage then drink once daily for constipation. Do not use for more than 7 days. OR Docusate 100 mg, 1 capsule twice daily as needed for constipation Hydrocortisone 1% Cream, apply topically (to the skin) to the affected area up to three times daily as needed for itching or inflammation (avoid eyes and genitals). 2% Antifungal Cream, apply topically (to the skin) as directed as needed to affected areas for athlete's foot or jock itch. Triple Antibiotic Ointment, apply topically (to the skin) up to three times daily as needed for minor cuts and scrapes. Carmex or Chapstick, apply topically (to the skin) as needed for chapped lips and skin. Orajel, apply to affected areas as needed for mouth or tooth pain. Lubricating Eye Drops, instill 1-2 drops to the affected eye(s) as needed for dry/irritated eye(s). Hemorrhoid medications, apply to affected area according to directions as needed for hemorrhoid discomfort and itch. Nix (Permethrin 1%) cream 2 ounces, apply topically (to the skin) as directed as needed for head lice. Sunscreen 30 SPF, Apply to exposed skin prior to exposure to sun. The following PRN medications must be approved by nursing staff before self-administration by patients: Diphenhydramine 25 mg, 2 tablets by mouth every 4 hours as needed for allergic reaction or itchy rash. Caution: Do not use hydroxyzine within 4 hours of diphenhydramine and vice versa. Loperamide 2 mg capsules, may give two capsules by mouth for the initial dose, followed by one capsule up to 3 times a day as needed for diarrhea. Acetaminophen 500 mg, 1 - 2 tablets by mouth every six hours as needed for pain. (NOTE: Ibuprofen and acetaminophen may be given together, but alternating is recommended for continuous pain relief). Oxygen-May administer oxygen 2L/min via nasal cannula if O2 saturation is less than 92%, AND client complains of shortness of breath. Target O2 saturation is 94-98%. Caution: Remember too much oxygen can be detrimental to a client with COPD. Oxygen is a drug and should be delivered by trained staff only. Nurses may remove superficial splinters and sutures from skin lacerations. May apply gauze or bandages to any weeping wounds. Contact nursing if there is pus, a foul odor, increased pain/redness/swelling, or if soaking through bandages. 11/16/2024 Opioid use disorder (ICD-10 - F11.99) Medication increased as above due to reports of continued cravings. 11/25/2024 Opioid use disorder (ICD-10 - F11.99) 12/02/2024 Opioid use disorder (ICD-10 - F11.99) 12/16/2024 Opioid use disorder (ICD-10 - F11.99) 12/30/2024 Opioid use disorder (ICD-10 - F11.99) Ongoing management with Suboxone. Patient reports continued use and requests refill, currently has 6 tablets left. No concerns or non-compliance reported. - Refill Suboxone 8 mg, four times daily, dispense 30 tablets. 01/13/2025 Opioid use disorder (ICD-10 - F11.99) 01/28/2025 Opioid use disorder (ICD-10 - F11.99) Ongoing opioid use disorder managed with Suboxone. Patient reported difficulty securing medication due to lack of lock box and financial constraints. Recent relapse of roommate increased risk but patient denied being triggered. Patient attends five group meetings per week as part of recovery contract. Patient recently started working, making meeting attendance more challenging. - Continue Suboxone 8 mg four times a day. - Refill Suboxone prescription. - Encourage secure storage of medication with lock box. - Support ongoing group meeting attendance. 02/24/2025 Opioid use disorder (ICD-10 - F11.99) History of opioid use disorder, currently taking Suboxone. Confirmed ongoing use and not out of medication. Discussed induction and refill with intake staff and hospital doctor. - Refill Suboxone, four times a day. 11/09/2024 Low back pain, unspecified (ICD-10 - M54.50) 01/28/2025 Social anxiety disorder (ICD-10 - F40.10) 11/11/2024 NIDA (generalized anxiety disorder) (ICD-10 - F41.1) 02/23/2025 Unprotected sex (ICD-10 - Z72.51) 12/30/2024 Opioid use disorder (ICD-10 - F11.99) 01/28/2025 Obesity (BMI 30-39.9) (ICD-10 - E66.9) 11/16/2024 Dental abscess (ICD-10 - K04.7) Encouraged to f/u with dental provider for further evaluation and treatment. 11/09/2024 Over weight (ICD-10 - E66.3) 01/13/2025 Social anxiety disorder (ICD-10 - F40.10) 02/23/2025 Substance abuse (ICD-10 - F19.10) 11/11/2024 Over weight (ICD-10 - E66.3) 11/09/2024 Diarrhea (ICD-10 - R19.7) 02/23/2025 Mental health problem (ICD-10 - F48.9) 01/28/2025 Other Discussed medication side effects, adverse effects, risks, benefits, as well as interactions. Encouraged non-use of opioids. Has naloxone. Recommended participation in recovery groups and/or counseling services. May contact office with questions or concerns. 11/09/2024 Other Clinician met w ith client to assess needs for residential services. Clinician gathered information regarding historical presentation of mental health and substance use symptoms including withdrawal, HIV Risk assessment, psychiatric hospitalization history and presenting concern. Clinician conducted PHQ9 and CSSRS assessments as well as social drivers of health screening for the purposes of identifying additional service needs. 11/09/2024 Other Continue treatment as recommended by [facility] staff. Encouraged patient to obtain routine medical care with patient's own primary care provider or establish as a patient at [facility] if no current primary care provider. 12/13/2024 Other pt not seen, destin bs drawn only 12/30/2024 Other Discussed medication side effects, adverse effects, risks, benefits, as well as interactions. Encouraged non-use of opioids. Has naloxone. Recommended participation in recovery groups and/or counseling services. May contact office with questions or concerns. 12/16/2024 Other Discussed medication side effects, adverse effects, risks, benefits, as well as interactions. Encouraged non-use of opioids. Has naloxone. Recommended participation in recovery groups and/or counseling services. May contact office with questions or concerns. 11/16/2024 Other Patient agrees to take medication as prescribed. Discussed medication side effects, adverse effects, risks, benefits, as well as interactions. Encouraged non-use of opioids. Has naloxone. Recommended participation in recovery groups and/or counseling services. May contact office with questions or concerns. Learning About the Safe Use of Antibiotics material was discussed. Pt was educated on use of antibiotic medication including dosing, side effects, adverse effects and anticipated response. Pt was also educated on importance of completing full course of treatment as ordered. Patient voiced understanding of all. 12/02/2024 Other Discussed medication side effects, adverse effects, risks, benefits, as well as interactions. Encouraged non-use of opioids. Has naloxone. Recommended participation in recovery groups and/or counseling services. May contact office with questions or concerns. 02/23/2025 Other Continue treatment as recommended by [facility] staff. Encouraged patient to obtain routine medical care with patient's own primary care provider or establish as a patient at [facility] if no current primary care provider. 02/24/2025 Other Discussed medication side effects, adverse effects, risks, benefits, as well as interactions. Encouraged non-use of opioids. Has naloxone. Recommended participation in recovery groups and/or counseling services. May contact office with questions or concerns. 02/23/2025 Other Clinician met w ith client to assess needs for residential services. Clinician gathered information regarding historical presentation of mental health and substance use symptoms including withdrawal, HIV Risk assessment, psychiatric hospitalization history and presenting concern. Clinician conducted PHQ9 and CSSRS assessments as well as social drivers of health screening for the purposes of identifying additional service needs. Plan Of Treatment Next Appt Details Provider Name:Melania jacques, 03/23/2025 08:40:00 AM, [address], [place], [address], Provider Name:Anni powell, 04/01/2025 08:20:00 AM, [address], [place], [address], Insurance Providers Payer Name Payer Address Payer Phone Subscriber Number Group Number Insured Name Patient Relationship to Insured Coverage Start Date Coverage End Date [facility] [address] [place] [address] [phone] [id number] Kwasi Mccabe Self - patient is the insured 5 MEDICAID [employer] [address] [facility] [place] [address] [id number] Kwasi Mccabe Self - patient is the insured 5 Medical (General) History Medical History History ICD Code chronic anxiety depression Opioid use disorder Generalized anxiety disorder Insomnia Constipation Alcohol use disorder Surgical History Surgery Date(Month/Year) Hospitalization History Reason Date(Month/Year) Nadine 10/2024 Alcohol detox, [facility], 1
== END 2025-03-14 11:17 | disposition home or self-care (01) ==
PROVIDERS: Emergency Provider Physician Assistant; PCP Registered Nurse
DX: F41.9 Anxiety disorder, unspecified (principal); Z76.0 Encounter for issue of repeat prescription; F32.A Depression, unspecified
CPT/HCPCS: 99281

== ENCOUNTER 2025-03-19 11:28 | Emergency (ER) | payer BC, SELFPAY ==
--- OUTSIDE RECORDS SUMMARY | 2025-01-27 08:20 | XMS_ITS ---
Author Organization [facility] Address [address] [place] [address] Phone [phone] Care Team Providers Care Marking Clerk Name Role Phone Rojas Alexis Primary Care Provider [phone] Melania Nayak APRN REASON FOR VISIT MAT F/U Social History Sex Observation Social History Observation Description Sex Observation Male Encounters Date Time Type Facility Location Provider Diagnosis 01/27/2025 08:20 AM Office Visit [facility] [address] [place] [address] Melania Nayak Plan Of Treatment Next Appt Details Provider Name:Melania jacques, 03/23/2025 08:40:00 AM, [address], [place], [address], Provider Name:Anni powell, 04/01/2025 08:20:00 AM, [address], [place], [address], Medical (General) History Medical History History ICD Code chronic anxiety depression Opioid use disorder Generalized anxiety disorder Insomnia Constipation Alcohol use disorder Surgical History Surgery Date(Month/Year) Hospitalization History Reason Date(Month/Year) Touchette 10/2024 Alcohol detox, [facility], 1 Progress Notes * Kwasi MCCABEDOB:1990 (34 yo M)Acc No.[id number]:01/27/2025 UNLOCKED PROGRESS NOTE Patient: Kwasi EARLY Provider: Panda Nayak, MSN, DAVIAN, DRAWING KILN OPERATOR-C :1990 A ge:34 Y S ex:Male Date:01/27/2025 Phone: Address:[address] [place], [place] [phone] Pcp:Rojas Alexis Subjective: * Chief Complaints: * 1 . MAT F/U. * Screening: * * Medical History: Objective: * Vitals: Assessment: Plan: * Treatment: * Care Plan Details* * Electronic signature of Julienne Nayak APRN, [id number] on 03/19/2025 at 11:30 AM CROCHET BEADER Sign off status: Pending * Provider: NICOLE Monsalve, DAVIAN, DRAWING KILN OPERATOR-C Date: 03/29/2024 Generated for Marlo feldman/Farzana/eTransmitting on: 05/20/2024 11:30 AM CROCHET BEADER
--- OUTSIDE RECORDS SUMMARY | 2025-03-08 14:55 | XMS_ITS ---
Author Organization [facility] Address [address] [place] [address] Phone [phone] Care Team Providers Care Mixer Runner Name Role Phone Rojas Alexis Primary Care Provider [phone] REASON FOR VISIT hosp need f/u psyche 04/01 Social History Sex Observation Social History Observation Description Sex Observation Male Encounters Date Time Type Facility Location Provider Diagnosis 03/08/2025 02:55 PM Telephone Encounter [facility] [address] [place] [address] Rojas Alexis Plan Of Treatment Next Appt Details Provider Name:Melania jacques, 03/23/2025 08:40:00 AM, [address], [place], [address], Provider Name:Anni powell, 04/01/2025 08:20:00 AM, [address], [place], [address], Medical (General) History Medical History History ICD Code chronic anxiety depression Opioid use disorder Generalized anxiety disorder Insomnia Constipation Alcohol use disorder Surgical History Surgery Date(Month/Year) Hospitalization History Reason Date(Month/Year) Touchette 10/2024 Alcohol detox, [facility], 2025-02-0 1 Progress Notes * Kwasi MCCABEDOB:1990 (34 yo M)Acc No.[id number]:03/08/2025 UNLOCKED PROGRESS NOTE Patient: Kwasi EARLY :1990 A ge:34 Y S ex:Male Phone: Address:[address] [place] [address], [address] Subjective: * Chief Complaints: * H osp need f/u psyche 04/01 * HPI: E R/Hospital Follow-up: ER/Hopsital/Urgent Care follow-up. Notification of ER/hospital visit from: . , Records received. I f instructed by nurse/provider, did the pt go to ER/UC? E R/Urgent Care follow-through The nurse or provider did not initiate the ER/urgent care visit. .. D ate of ER/urgent visit or hospitalization: 05/02/24. R ashleigh for the Visit: . hospital stay at [facility]. Visit Type and Location: . , Inpatient Hospitalization. D isclosure signed to obtain records: . , No. R ecords Requested Date D ate, First Attempt: ., D ate, Second Attempt: ., D ate, Third Attempt: .. R ecords Received: D ate Records Received 03/08/2025 .. M edication Changes: . . S ignficant labs, imaging or other results:?.. N ew diagnoses? . . P sarita recommended f/u: . . E R/Hospital F/U appointment with [facility]: Paresh [facility] f/u appointment date: 05/10/2024with Anni. A ppointment Kept? D id the patient keep the appointment with [facility]? .. N gil completing [facility] Viridiana Cm RN ., C [facility] Nurses .. * Medical History: * Surgical History: * Hospitalization/Major Diagno stic Procedure: * Medications: Objective: * Vitals: * Physical Examination: Assessment: Plan: * Treatment: * Procedure Codes: C HS01 ER/hospitalization continuity of care * * Date: History and Physical Notes * HPI (History of Present Illness) Category c/o Denies Symptom Duration Details Notes Catego ry Notes ER/Hospital Follow-up Visit Type and Location: ., Inpatient Hospitalization ER/Hopsit al/Urgent Care follow-up Disclosure signed to obtain records: ., No Records Requested Date Date, F irst Attempt:: . Date, Second Attempt:: . Date, Third Attempt: : . Records Received: Date Re cords Received: 03/08/2025 . Medication Changes: . Signficant labs, imaging or other results: . New diagnoses? . Provider recommended f/u: . ER/Hospital F/U appointment with [facility]: [facility] f/u appointment date:: 03/09/202504/01/giacomo Hutton Notification of ER/hospital visit from: ., Records received Reason for the Visit: .ho spital stay at [facility] Date of ER/urgen t visit or hospitalization: 03/01/25 Nurse completing documentation [facility] Nurses: Kate Cm RN . [place] [facility] Nurses: . If instructed by nurse/provider, did the pt go to ER/UC? ER/Urgent Care follow-throug h: The nurse or provider did not initiate the ER/urgent care visit. . Appointment Kept? Did the patient keep the appointment with [facility]?: .
--- OUTSIDE RECORDS SUMMARY | 2025-03-09 13:00 | XMS_ITS ---
Author Organization [facility] Address [address] [place] [address] Phone [phone] Care Team Providers Care Transportation Engineering Technician Name Role Phone Rojas Alexis Primary Care Provider [phone] REASON FOR VISIT last seen on CRU [...] Provider Diagnosis 03/09/2025 01:00 PM Office Visit [facility] [place] [place] [address] Rojas Alexis Plan Of Treatment Next Appt Details Provider Name:Melania jacques, 03/23/2025 08:40:00 AM, [address], [place], [address], Provider Name:Anni powell, 04/01/2025 08:20:00 AM, [address], [place], [address], Medical (General) History Medical History History ICD Code chronic anxiety depression Opioid use disorder Generalized anxiety disorder Insomnia Constipation Alcohol use disorder Surgical History Surgery Date(Month/Year) Hospitalization History Reason Date(Month/Year) [facility] 10/2024 Alcohol detox, [facility], 2024-12-0 1 Progress Notes * Kwasi MCCABEDOB:1990 (34 yo M)Acc No.[id number]:03/09/2025 UNLOCKED PROGRESS NOTE Progress Notes Patient: Kwasi EARLY Provider: Joshua Alexis APN :1990 A ge:34 Y S ex:Male Date:03/09/2025 Phone: Address:[address] [place], [place] [phone] Subjective: * Chief Complaints: * 1 . [...] * Electronic signature of Darrion Alexis on 03/19/2025 at 11:30 AM SHORT PIECE HANDLER Sign off status: Pending * Provider: Joshua Alexis APN Date: 1 05/10/2024 Generated for Marlo feldman/Farzana/Michael on: 05/20/2024 11:30 AM SHORT PIECE HANDLER
--- NOTE | ~2025-03-19 | XR_ITS ---
Lumbar spine series Indication: Fall Comparison: None Technique: 3 views lumbar spine Findings: 5 nonrib-bearing lumbar-type vertebral bodies. No acute fracture. No listhesis. Vertebral bodies normal height. Disc spaces maintained. No significant degenerative changes. SI joints congruent. Sacrum intact. IMPRESSION: 1. No acute findings. Reviewed, dictated and finalized at location R. TOWER OPERATOR IMPRESSION: 1. No acute findings.
--- NOTE | ~2025-03-19 | XR_ITS ---
Examination: XR thoracic spine 3V Clinical History: Fall Comparison: None Technique: 2 views thoracic spine Findings: T12 not included. No fracture. No listhesis. No significant degenerative changes. Visualized heart and lungs unremarkable. IMPRESSION: 1. No acute abnormality identified, but limited exam. Reviewed, dictated and finalized at location R. ROOM SUPERVISOR
[2025-03-19 11:29] VITALS: BP 132/79; PULSE 100; RESP 16; TEMP 36.4; O2SAT 98
--- OUTSIDE RECORDS SUMMARY | 2025-03-19 11:30 | XMS_ITS | Clinical Summary ---
Author Organization [facility] Address [address] [place] [address] Care Team Providers Care Plating Engineer Name Role Phone No, Physician Primary Care Provider [phone] Allergies No known active allergies Medications docusate [...] 02/21/2025 Assessment & Plan (02/21/2025 3:32 PM [employer]ER): -CIWA -Electrolytes unremarkable on presentation -Warm and of consult will use Valium instead of IV Ativan Substance use disorder 02/21/2025 Assessment & Plan (02/21/2025 3:32 PM [employer] F[employer]ER): History of opioid use disorder -Continue Suboxone -UDS with benzos and cannabis Encounters Date Type Department Care Team Description 03/08/2025 11:18 PM [employer]ER - 03/08/2025 11:59 PM [employer]ER Hospital Encounter [facility] Emergency, Room R Discharge Disposition: Discharge to home or self care 02/23/2025 Documentation [facility] Off Program [address] [place] [address] Bree Ca 02/22/2025 [facility] Enrollment [facility] [address] [place], [place] [phone] Mark Wood, BARK PRESS OPERATOR 02/21/2025 1:25 PM [employer]ER - 02/23/2025 8:15 AM [employer]ER Hospital Encounter [facility] [address] [place] [address] Sandeep Garcia MD Shaba, Winnie, MD Alcohol use disorder (Primary Dx); Substance use disorder Discharge Disposition: Discharge to an IP Rehab facility 02/21/2025 Documentation [facility] Warm Hand Off [facility] [address] [place] [address] Chelsea Ashton 02/21/2025 Documentation [facility] Hand Off [facility] [address] [place] [address] Bree Ca from Last 3 Months Social [...] How often do you attend mormon or yazidi serv ices? Never 02/22/2025 Do you belong [...] any time in the past 12 m [facility], were you homeless or living in a residential (including now)? Yes 02/22/2025 [facility] Utilities Answer Date Recorded In the past [...] Comments Blood Pressure 120/70 02/22/2025 10:49 PM [employer]ER Pulse 64 02/22/2025 10:49 PM [employer]ER Temperature 36.8 C (98.2 F) 02/22/2025 10:49 PM [employer]ER Respiratory Rate 16 02/22/2025 10:49 PM [employer] F[employer]ER Oxygen Saturation 100% 02/22/2025 10:49 PM [employer]ER Inhaled Oxygen Concentration - - Weight 93 kg (205 lb) 02/21/2025 11:21 AM [employer] Height 175.3 cm (5' 9) 02/21/2025 8:30 PM [employer]ER Body Mass Index 30.27 02/21/2025 11:21 AM [employer]ER Plan of Treatment Health Maintenance Due Date [...] URINE WITHOUT CONFIRMATION STAT 02/21/2025 12:23 PM [employer]ER EGFR STAT 02/21/2025 11:30 AM [employer]ER DIFFERENTIAL AUTO STAT 02/21/2025 11: 30 AM [employer]ER SALICYLATE LEVEL STAT 02/21/2025 11:3 0 AM [employer]ER ETHANOL STAT 02/21/2025 11:30 AM [employer]ER ACETAMINOPHEN LEVEL STAT 02/21/2025 1 1:30 AM [employer]ER COMPREHENSIVE METABOLIC PANEL STAT 02/21/2025 11:30 AM [employer]ER CBC WITH AUTO DIFFERENTIAL STAT 02/21/2025 11:30 AM [employer] FOUNDER from Last 3 Months Results * (ABNORMAL) Drugs of Abuse Screen, Urine without Confirmation (02/21/2025 12:23 PM C[employer] CO FOUNDER) [facility] Amphetamine, ur Not Detected CutOff 500ng/mL Comment: [...] on 2017. Urine 02/21/2025 12:2 3 PM [employer] F[employer]ER 02/21/2025 12:25 PM [employer]ER Narrative ZOILA QUINTANA ([place]) - 02/21/2025 1:10 PM [employer] FOUNDER Drug of Abuse screening is performed by immunoassay for medical purposes only. This is not to be used for Pain Management purposes. [facility] URINE ORDERABLES Final R esult Performing Organization Address [facility] Co de Phone Number ZOILA QUINTANA ([place]) 1 [facility] [place] [address] * eGFR (02/21/2025 11:30 AM [employer] FOUNDER) eGFR >90 >=60 mL/min/1. 73 m2 Comment: [...] reviewed 2021. Blood 02/21/2025 11:3 0 AM [employer]ER 02/21/2025 11:34 AM [employer]ER [facility] BLOOD ORDERABLES Final R esult Performing Organization Address [facility] Co de Phone Number ZOILA QUINTANA ([place]) [address] [facility] [place] [address] * Differential, auto (02/21/2025 11:30 AM [employer] FOUNDER) Neutrophil abs 4.56 1.50 - 6.50 K/cumm [...] on 2017. Blood 02/21/2025 11:3 0 AM [employer]ER 02/21/2025 11:34 AM [employer] [facility]ER [facility] BLOOD ORDERABLES Final R esult [facility]A [facility] ([place]) 1 [facility] [place] [address] * (ABNORMAL) CBC with auto differential (02/21/2025 11:30 AM [employer] FOUNDER) WBC 7.98 3.80 - 9.90 K/cumm Hgb [...] [facility] ([place]) Blood 02/21/2025 11:3 0 AM [employer]ER 02/21/2025 11:34 AM [employer] [facility]ER [facility] BLOOD ORDERABLES Final R esult [facility] ([place]) [address] [facility] [place] [address] * Ethanol (02/21/2025 11:30 AM [employer] FOUNDER) Ethanol <10 <=10 mg/dL Comment: Interpretive Data Legal limit of intoxication > or = 80 mg/dL Levels > or = 400 mg/dL are potentially TOXIC. Current interpretive data was last revised on 2018. Blood 02/21/2025 11:3 0 AM [employer] FOUNDER 02/21/2025 11:34 AM [employer]ER [facility] BLOOD ORDERABLES Final R esult [facility] ([place]) 1 [facility] [place] [address] * Acetaminophen level (02/21/2025 11:30 AM [employer] FOUNDER) Acetaminophen <5 <=5 mcg/mL Comment: Markedly elevated [...] after ingestion Consult toxicology or poison control ([phone]) for unknown ingestion time. Current interpretive data was last revised 2022. Blood 02/21/2025 11:3 0 AM [employer] F[employer]ER 02/21/2025 11:34 AM [employer] F[employer]ER [facility] BLOOD ORDERABLES Final R esult [facility] ([place]) [address] [facility] [place] [address] * Salicylate level (02/21/2025 11:30 AM [employer] FOUNDER) Salicylate <5.0 <=5.0 mg/dL Comment: Interpretive Data Toxic: 30 mg/dL or greater. Current interpretive data was last revised 2022. Blood 02/21/2025 11:3 0 AM [employer] F[employer]ER 02/21/2025 11:34 AM [employer] CO FOUNDER us [facility] BLOOD ORDERABLES Final R esult [facility] ([place]) 1 [facility] [place] [address] * Comprehensive metabolic panel (02/21/2025 11:30 AM [employer] FOUNDER) Sodium 139 135 - 145 mmol/L Potassium, [...] [facility] ([place]) Blood 02/21/2025 11:3 0 AM [employer] FOUNDER 02/21/2025 11:34 AM [employer] FOUNDER [facility] BLOOD ORDERABLES Final R esult ZOILA QUINTANA ([place]) 1 [facility] [place] [address] from Last [address] [place] [address] [address] PLAN Advance Directives For more information, please contact: [phone] * Full Code (Latest Code Status on File) Date Activated Date Inactivated Comments 02/21/2025 4:08 PM 02/23/2025 12:20 PM Care Teams Plating Engineer Relationship Specialty Start Date End Date No, Physician PCP - General 10/27/24
--- NOTE | 2025-03-19 11:58 | ED.FALL ---
HPI - Fall General Chief Complaint: Fall Stated Complaint: fall, back pain Time Seen by Provider: 03/19/25 11:52 Source: patient Mode of arrival: ambulatory Limitations: no limitations History of Present Illness HPI Narrative: Going down sidewalk, slipped and fell on his bottom, complaining of left lower back pain. No other injuries. Patient would like to get a refill for clonazepam prescription. Related Data Allergies Allergy/AdvReac Type Severity Reaction Status Date / Time No Known Allergies Allergy Verified 03/19/25 11:33 Review of Systems Review of Systems: All systems reviewed & are unremarkable except as noted in HPI and below Exam Narrative: General appearance: Well-developed, well-nourished Skin: Normal color Head: Normocephalic, nontraumatic Eyes: Clear conjunctiva ENT: Oropharynx normal, ears normal, nose normal Neck: Supple, nontender Chest and respiratory: Airway patent, no respiratory distress, no accessory muscle use Heart: Regular rate/rhythm Abdomen: Soft, nontender, no organomegaly, quiet bowel sounds Vascular: Normal peripheral pulses, normal capillary refill. Musculoskeletal: Diffuse tenderness all over the back mainly lumbar area. No bruises, no swelling, no rash Neurologic: Alert and oriented ?3, [employer] is normal as tested, no gross motor deficit Course Vital Signs Vital signs: Vital Signs Temperature 36.4 C L 03/19/25 11:29 Pulse Rate 100 03/19/25 11:29 Respiratory Rate 16 03/19/25 11:29 Blood Pressure 132/79 03/19/25 11:29 Pulse Oximetry 98 03/19/25 11:29 Oxygen Delivery Room Air 03/19/25 11:29 Temperature 36.4 C L 03/19/25 11:29 Pulse Rate 100 03/19/25 11:29 Respiratory Rate 16 03/19/25 11:29 Blood Pressure 132/79 03/19/25 11:29 Pulse Oximetry 98 03/19/25 11:29 Oxygen Delivery Room Air 03/19/25 11:29 [facility] MDM Narrative Medical decision making narrative: Differential diagnosis musculoskeletal, vertebra fracture X-ray of the thoracic and lumbar spine showed no acute osseous abnormality The pt was discharged to home.the pt,s condition upon discharge was fair,education was provided to the pt in reference to the final impression,discharge study results,treatment,prognosis and need for follow up . Differential Diagnosis Differential Diagnosis: As above Imaging Data Radiologist's impression: ITS Impressions Lumbar Spine X-Ray 03/19/25 13:23 IMPRESSION: 1. No acute findings. Thoracic Spine X-Ray 03/19/25 13:27 IMPRESSION: 1. No acute abnormality identified, but limited exam. Discharge Plan Discharge Clinical Impression: Back pain Patient Disposition: Home Condition: Stable Instructions: Back Pain (ED) Additional Instructions: Return if symptoms are worsening , call your family physician for appointment, take Tylenol, ibuprofen as as needed for aches and pain, continue home medications. Patient Language: Luxembourgish Prescriptions: No Action clonazepam [Klonopin] 1 mg tablet 1 mg PO BID 7 Days Qty: 14 0RF Follow-up/Referrals: Reuben,Rojas Viera APRN [Primary Care Provider, Unknown]
--- OUTSIDE RECORDS SUMMARY | 2025-03-19 12:09 | XMS_ITS | Clinical Summary ---
Author Organization [facility] Address [address] [place] [address] Care Team Providers Care Swing Driver Name Role Phone No, Physician Primary Care Provider Allergies No known active allergies Medications docusate [...] 02/21/2025 Assessment & Plan (02/21/2025 3:32 PM CREPE SOLE SCOURER): -CIWA -Electrolytes unremarkable on presentation -Warm and of consult will use Valium instead of IV Ativan Substance use disorder 02/21/2025 Assessment & Plan (02/21/2025 3:32 PM CREPE SOLE SCOURER): History of opioid use disorder -Continue Suboxone -UDS with benzos and cannabis Encounters Date Type Department Care Team Description 03/08/2025 11:18 PM CREPE SOLE SCOURER - 03/08/2025 11:59 PM CREPE SOLE SCOURER Hospital Encounter [facility] Emergency, Room R Discharge Disposition: Discharge to home or self care 02/23/2025 Documentation [facility] Warm Hand Off Program [address] [place] [address] Bree Ca 02/22/2025 [facility] Enrollment [facility] Warm Hand Off Program [address] [place], [place] [phone] Mark Wood, CH[employer] SUPERVISOR 02/21/2025 1:25 PM CREPE SOLE SCOURER - 02/23/2025 8:15 AM [facility] SOLE [employer]ER Hospital Encounter [facility] Medical Care [address] [place] [address] Sandeep Garcia MD Shaba, Winnie, MD Alcohol use disorder (Primary Dx); Substance use disorder Discharge Disposition: Discharge to an IP Rehab facility 02/21/2025 Documentation [facility] Warm Hand Off Program [address] [place] [address] Chelsea Ashton 02/21/2025 Documentation [facility] Warm Hand Off Program [address] [place] [address] Bree Ca from Last 3 Months Social [...] week 02/22/2025 How often do you attend episcopal or latter-day serv ices? Never 02/22/2025 Do you belong to any clubs o r organizations such as episcopal groups, unions, fraternal or athletic groups, or [...] any time in the past 12 m [facility], were you homeless or living in a snf (including now)? Yes 02/22/2025 [facility] Utilities Answer Date Recorded In the [...] Comments Blood Pressure 120/70 02/22/2025 10:49 PM [employer]PE SOLE SCOURER Pulse 64 02/22/2025 10:49 PM [employer]PE SO[employer] SC[employer]ER Temperature 36.8 C (98.2 F) 02/22/2025 10:49 PM CREPE SOLE SCOURER Respiratory Rate 16 02/22/2025 10:49 PM [employer] SOLE SC[employer]ER Oxygen Saturation 100% 02/22/2025 10:49 PM CREPE SOLE SCOURER Inhaled Oxygen Concentration - - Weight 93 kg (205 lb) 02/21/2025 11:21 AM CREPE SOLE SCOURER Height 175.3 cm (5' 9) 02/21/2025 8:30 PM CREPE SOLE SCOURER Body Mass Index 30.27 02/21/2025 11:21 AM CREPE SOLE SCOURER Plan of Treatment Health Maintenance Due Date [...] URINE WITHOUT CONFIRMATION STAT 02/21/2025 12:23 PM CREPE SOLE SCOURER EGFR STAT 02/21/2025 11:30 AM CREPE SOLE SCOURER DIFFERENTIAL AUTO STAT 02/21/2025 11: 30 AM CREPE SOLE SCOURER SALICYLATE LEVEL STAT 02/21/2025 11:3 0 AM [employer] SOLE SC[employer]ER ETHANOL STAT 02/21/2025 11:30 AM [employer] SOLE SC[employer]ER ACETAMINOPHEN LEVEL STAT 02/21/2025 1 1:30 AM CREPE SOLE SCOURER COMPREHENSIVE METABOLIC PANEL STAT 02/21/2025 11:30 AM CREPE SOLE SCOURER CBC WITH AUTO DIFFERENTIAL STAT 02/21/2025 11:30 AM CREPE SOLE SCOURER from Last 3 Months Results * (ABNORMAL) Drugs of Abuse Screen, Urine without Confirmation (02/21/2025 12:23 PM CREPE SOLE SCOURER) [facility] Amphetamine, ur Not Detected CutOff 500ng/mL Comment: [...] on 2017. Urine 02/21/2025 12:2 3 PM CREPE SOLE SCOURER 02/21/2025 12:25 PM CREPE SOLE SCOURER Narrative ZOILA QUINTANA ([place]) - 02/21/2025 1:10 PM CREPE SOLE SCOURER Drug of Abuse screening is performed by immunoassay for medical purposes only. This is not to be used for Pain Management purposes. Malick [facility] URINE ORDERABLES Final R esult Performing Organization Address [facility] Co de Phone Number ZOILA QUINTANA ([place]) [address] [facility] [place] [address] * eGFR (02/21/2025 11:30 AM CREPE SOLE SCOURER) eGFR >90 >=60 mL/min/1. 73 m2 Comment: [...] reviewed 2021. Blood 02/21/2025 11:3 0 AM CREPE SOLE SCOURER 02/21/2025 11:34 AM CREPE SOLE SCOURER Malick [facility] BLOOD ORDERABLES Final R esult Performing Organization Address [facility] Co de Phone Number ZOILA QUINTANA ([place]) [address] [facility] [place] [address] * Differential, auto (02/21/2025 11:30 AM CREPE SOLE SCOURER) Neutrophil abs 4.56 1.50 - 6.50 K/cumm [...] on 2017. Blood 02/21/2025 11:3 0 AM CREPE SOLE SCOURER 02/21/2025 11:34 AM CREPE SOLE SCOURER Malick [facility] BLOOD ORDERABLES Final R esult [facility] ([place]) [address] [facility] [place] [address] * (ABNORMAL) CBC with auto differential (02/21/2025 11:30 AM CREPE SOLE SCOURER) WBC 7.98 3.80 - 9.90 K/cumm Hgb [...] [facility] ([place]) Blood 02/21/2025 11:3 0 AM CREPE SOLE SCOURER 02/21/2025 11:34 AM CREPE SOLE SCOURER Malick [facility] BLOOD ORDERABLES Final R esult [facility] ([place]) [address] [facility] [place] [address] * Ethanol (02/21/2025 11:30 AM CREPE SOLE SCOURER) Ethanol <10 <=10 mg/dL Comment: Interpretive Data Legal limit of intoxication > or = 80 mg/dL Levels > or = 400 mg/dL are potentially TOXIC. Current interpretive data was last revised on 2018. Blood 02/21/2025 11:3 0 AM CREPE SOLE SCOURER 02/21/2025 11:34 AM CREPE SOLE SCOURER Malick [facility] BLOOD ORDERABLES Final R esult [facility] ([place]) [address] [facility] [place] [address] * Acetaminophen level (02/21/2025 11:30 AM CREPE SOLE SCOURER) Acetaminophen <5 <=5 mcg/mL Comment: Markedly elevated [...] after ingestion Consult toxicology or poison control ([phone]) for unknown ingestion time. Current interpretive data was last revised 2022. Blood 02/21/2025 11:3 0 AM CREPE SOLE SCOURER 02/21/2025 11:34 AM CREPE SOLE SCOURER Malick [facility] LAB BLOOD ORDERABLES Final R esult [facility] ([place]) [address] [facility] [place] [address] * Salicylate level (02/21/2025 11:30 AM CREPE SOLE SCOURER) Salicylate <5.0 <=5.0 mg/dL Comment: Interpretive Data Toxic: 30 mg/dL or greater. Current interpretive data was last revised 2022. Blood 02/21/2025 11:3 0 AM CREPE SOLE SCOURER 02/21/2025 11:34 AM CREPE SOLE SCOURER us Malick [facility] LAB BLOOD ORDERABLES Final R esult [facility] ([place]) [address] [facility] [place] [address] * Comprehensive metabolic panel (02/21/2025 11:30 AM CREPE SOLE SCOURER) Sodium 139 135 - 145 mmol/L Potassium, [...] [facility] ([place]) Blood 02/21/2025 11:3 0 AM CREPE SOLE SCOURER 02/21/2025 11:34 AM CREPE SOLE SCOURER Malick [facility] BLOOD ORDERABLES Final R esult ZOILA QUINTANA ([place]) [address] [facility] [place] [address] from Last [address] [place] [address] [place] [address] PLAN Advance Directives For more information, please contact: [phone] * Full Code (Latest Code Status on File) Date Activated Date Inactivated Comments 02/21/2025 4:08 PM 02/23/2025 12:20 PM Care Teams Swing Driver Relationship Specialty Start Date End Date No, Physician PCP - General 10/27/24
--- OUTSIDE RECORDS SUMMARY | 2025-03-19 12:09 | XMS_ITS | Patient Health Record ---
Author Organization [facility] Address [address] [place] [address] Phone [phone] Care Team Providers Care Manager Social Work Name Role Phone Rojas Alexis Primary Care Provider [phone] Melania Nayak APRN Unavailable [phone] Tyler Smiley Unavailable [phone] Anni Castillo Unavailable Libertad Wang Unavailable [phone] Allergies No Known Allergies Results Component Value Reference Range Flag Notes 14 Panel Urine Drug Screen Order date: 12/30/2024 Reviewed date:12/30/2024 03:10:57 PM Interpretation: Performing Lab: Notes/Report: THC neg ANJELICA neg MOP (OPI) neg AMP neg MET neg BAR neg BZO neg MDMA neg MTD neg OXY neg PCP neg BUP pos TCA neg FTY neg Rapid Plasma Reagin (RPR) Te st With Reflex to Quantitative RPR and Confirmatory Treponema pallidum Antibodies Order date: 02/23/2025 Reviewed date:02/25/2025 08:25:37 AM Interpretation: Performing Lab:[facility] Montoya, Jan Nguyen, Phone - [phone], Director - Ana Notes/Report: RPR Non Reactive Non Reactive Chlamydia trachomatis,Neisse charu gonorrhoeae, and Trichomonas vaginalis, ROX ([id number]) Order date: 02/23/2025 Reviewed date:02/25/2025 08:25:37 AM Interpretation: Performing Lab:[facility] [place], [address] [place] [address] [place], Phone - [phone], Director - Ana Notes/Report: Chlamydia by ROX Negative Negative Gonococcus by ROX Negative Negative Trich vag by ROX Negative Negative 14 Panel Urine Drug Screen Order date: 02/23/2025 Reviewed date:02/23/2025 01:23:17 PM Interpretation: Performing Lab: Notes/Report: THC POS ANJELICA neg MOP (OPI) neg AMP neg MET neg BAR neg BZO POS MDMA neg MTD neg OXY neg PCP neg BUP POS TCA neg FTY neg Breathalyzer Order date: 02/23/2025 Reviewed date:02/23/2025 01:23:17 [...] 12/09/2024 Reviewed date:12/31/2024 08:38:59 AM Interpretation: Performing Lab:[facility], [address] [place] [address], Phone - [phone], Director - Jane Notes/Report: TSH-ICMA 2.5 Reference Range: Non- Adult 0.450-4.500 Free T4 by Dialysis/Patient Support Representative 0.67 L This test was developed and its performance characteristics determined by [facility]. It has not been cleared or approved by the Food and Drug Administration. Reference Range: Pubertal Children and Adults: 0.8 - 1.7 Hepatitis C Virus Antibody w /Rflx to Quantitative Real-time PCR ([id number]) Order date: 11/09/2024 Reviewed date:11/12/2024 08:05:27 AM Interpretation: Performing Lab[facility], [address] [facility], Phone - [phone], Director - Kvng Notes/Report: HCV Ab Non Reactive Non Reactive Interpretation: Not infected with HCV unless early or acute infection is suspected (which may be delayed in an immunocompromised individual), or other evidence exists to indicate HCV infection. Hepatitis B Surface Antigen (HBsAg Screen) Order date: 11/09/2024 Reviewed date:11/12/2024 08:05:27 AM Interpretation: Performing Lab:[facility] [place], [address] [facility], Phone - [phone], Director - [facility] Notes/Report: HBsAg Screen Negative Negative 14 Panel Urine Drug Screen Order date: 11/09/2024 Reviewed date:11/09/2024 10:10:44 AM Interpretation: Performing Lab: Notes/Report: THC POS ANJELICA neg MOP (OPI) neg AMP neg MET neg BAR neg BZO neg MDMA neg MTD neg OXY nweg PCP neg BUP POS TCA neg FTY neg CBC With Differential/Platel et* Order date: 11/09/2024 Reviewed date:11/12/2024 08:05:27 AM Interpretation: Performing Lab:[facility] [place], [address] [facility], [place], Phone - [phone], [facility] Notes/Report: WBC 7.4 3.4-10.8 x10E3/uL RBC 4.82 [...] 11/09/2024 Reviewed date:11/12/2024 08:05:27 AM Interpretation: Performing Lab:[address], Phone - [phone], Director - [facility] Notes/Report: Glucose 74 70-99 mg/dL BUN 13 [...] Screen *HIV 1, 2 Ab, p24 Ag ([id number]) Order date: 11/09/2024 Reviewed date:11/12/2024 08:05:27 AM Interpretation: Performing Lab:[address], Phone - [phone], Director - [facility] Notes/Report: HIV Ab/p24 Ag Screen Non Reactive Non Reactive HIV-1/HIV-2 antibodies and HIV-1 p24 antigen were NOT detected. There is no laboratory evidence of HIV infection. HIV Negative QuantiFERON-TB Gold Plus ([id number]) Order date: 11/09/2024 Reviewed date:11/12/2024 08:05:27 AM Interpretation: Performing Lab:[address], Phone - [phone], Director - [facility] Notes/Report: QuantiFERON Incubation Incubation performed. QuantiFERON-TB [...] Interpretation: Performing Lab: Notes/Report: JOSÉ MIGUEL 0.000 Reason For Referral No Information Medications Medication [...] general medical examination (ICD_10 - Z00.00) Active Acetaminophen 325 mg Tablet TAKE 2 TABLETS BY MOUTH EVERY SIX HOURS NEEDED; Duration: 30 Active Escitalopram Oxalate 20 MG Tablet 1 [...] General Notes 02/24 YOVANNY TRIMBLE (LOIN C: 29531 -5) Total Score : 13 Please specify Case Management Follow-up Occupation: Starting new job at [employer] Occupation: Working five to six days a week Group meetings: Attends five meetings per week for recovery contract Living situation: Lives with seven other people Occupation: Currently employed, working second shift Transportat ion: No car, difficulty attending meetings Living situation: Stayed in hotel for 2-3 weeks after eviction from [facility] Drug use: Refused drug test, no substances in system at time of test Alcohol use: Relapsed, drinking daily for three weeks, up to 15 drinks per day, last drink three days ago Date Completed/Updated: 02/23/2025 What is your current housing situation? 93657-7 I do not have housing (staying with others, in a hotel, in a longterm, living outside on the street, on a beach, or in a park) (AU42745-3) Are you worried about losing your housing? 00578-2 No (LA32-8) What is the highest level of school that you have finished? 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 Check all that apply 74594-9 Food (BH53266-2) Clothing (PC91131-3) Utilities (UU03023-9) Medicine or any health care (medical, dental, mental health or vision) (NM16257-9) Has lack of transportation k ept you from medical appointments, meetings, work or from getting things needed for daily living? 31289-7 Yes, it has kept me from medical appointments or from getting my medications (OF24193-9) Yes, it has kept me from non-medical meetings, appointments, work, or getting things needed for daily living (DV53425-2) How often do you see or talk to people that you care about and feel close to? (For example: talking to friends on the phone, visiting friends or family, going to bahai or club meetings) 95633-5 More than 5 times a week (RE34155-0) How stressed are you? Stress is when someone feels tense, nervous, anxious, or can\t sleep at night because their mind is troubled 73474-9 Very much (QG79762-5) In the past year have you sp ent more than 2 nights in a row in a fpc, fci, halfway center, or juvenile correctional facility? 73498-4 No (LA32-8) Do you feel physically and e motionally safe where you currently live? 72800-1 No (LA32-8) In the past year, have you b een afraid of your partner or ex-partner? 84019-1 No (LA32-8) Are you a refugee? I [...] with others, in a hotel, in a longterm, living outside on the street, on a beach, or in a park) Are you worried about losing your housing? No What is the highest level of school that you have finished? 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 Stress is when someone feels tense, nervous, anxious, or can\t sleep at night because their mind is troubled Very much In the past year have you sp ent more than 2 nights in a row in a fpc, fci, halfway center, or juvenile correctional facility? No [...] hotel for 2-3 weeks after eviction from [facility] Drug use: Refused drug test, no substances in system at time of test Alcohol use: Relapsed, drinking daily for three weeks, up to 15 drinks per day, last drink three days ago Problems Problem Type SNOMED Code ICD Code Dates Problem Status W/U Status Risk Notes Problem Substance abuse (0311202455) Substance abuse (F19.10) Added On:11/09 Active confirmed Problem Social anxiety disorder (21525835) Social anxiety disorder (F40.10) Added On:11/11 Active confirmed Problem Generalized anxiety disorder (19152250) NIDA (generalized anxiety disorder) (F41.1) Added On:11/11 Active confirmed Problem Thyroid disorder screening (028453061) Screening for thyroid disorder (Z13.29) Added On:11/11 Active confirmed Problem Overweight (080132320) Over weight (E66.3) Added On:11/09 Active confirmed Problem Obesity (369923868) Obesity (BMI 30-39.9) (E66.9) Added On:12/02 Active confirmed Problem Subclinical hyperthyroidism (538725143) Subclinical hyperthyroidism (E05.90) Added On:11/11 Active confirmed Problem Mental health problem (677002484) Mental health problem (F48.9) Added On:02/23 Active confirmed Problem Physical examination, complete (35300214) Adult general medical examination (Z00.00) Added On:11/09 Active confirmed Problem History of hyperthyroidism (595034201) History of hyperthyroidism (Z86.39) Added On:11/11 Active confirmed Problem Opioid use disorder (3500618155) Opioid use disorder (F11.99) Added On:11/16 Active confirmed Problem Low back pain (512937401) Low back pain, unspecified (M54.50) Added On:11/09 [...] AM Office Visit, New Pt., Level 3 (08025) [facility] [place] [address] [place] [address] Rojas Alexis Adult general medical examination Z00.00 ; Over weight E66.3 ; Low back pain, unspecified M54.50 and Diarrhea R19.7 5 09:40 AM Office Visit [facility] [address] [address] Libertad Wang Substance abuse F19.10 and Over weight E66.3 5 08:40 AM Office Visit, Est Pt., Level 4 (88678) [facility] [place] [address] Anni Castillo Social anxiety disorder F40.10 ; NIDA (generalized anxiety disorder) F41.1 and Over weight E66.3 5 11:20 AM Office Visit, Est Pt., Level 3 (05314) [facility] [place] [address] Melania Nayak Opioid use disorder F11.99 ; Over weight E66.3 and Dental abscess K04.7 5 11:20 AM Office Visit, Est Pt., Level 3 (09148) [facility] [place] [address] Alexiaia Heavens Opioid use disorder F11.99 and Over weight E66.3 5 10:20 AM Office Visit, Est Pt., Level 3 (92335) [facility] [place] [address] Jenia Heavens Opioid use disorder F11.99 and Obesity (BMI 30-39.9) E66.9 5 08:20 AM Office Visit [facility] [place] [address] [place] [address] Rojas Alexis 5 10:20 AM Office Visit, Est Pt., Level 3 (97488) [facility] [place] [address] Jenia Heavens Opioid use disorder F11.99 and Over weight E66.3 5 03:00 PM Office Visit, Est Pt., Level 3 (53773) [facility] [place] [address] [place] [address] Jenia Heavens Opioid use disorder F11.99 and Obesity (BMI 30-39.9) E66.9 5 08:20 AM Office Visit, Est Pt., Level 3 (13617) [facility] [address] Jenia Heavens Opioid use disorder F11.99 ; Social anxiety disorder F40.10 and Obesity (BMI 30-39.9) E66.9 5 09:20 AM Office Visit, Est Pt., Level 4 (51088) [facility] [address] [facility] [address] Rojas Alexis Over weight E66.3 ; Adult general medical examination Z00.00 and Unprotected sex Z72.51 5 10:00 AM Office Visit [facility] [place] [address] Libertad Wang Over weight E66.3 ; Substance abuse F19.10 and Mental health problem F48.9 5 09:40 AM Office Visit, Est Pt., Level 3 (73218) [facility] [address] [place] [address] Melania Nayak Opioid use disorder F11.99 5 02:55 PM Telephone Encounter [facility] [address] [place] [address] Rojas Alexis 5 01:31 PM Telephone Encounter [address] [place] [address] Tyler Smiley 5 11:51 AM Telephone Encounter [place] [address] [facility] [place] [address] Rojas Alexis Screening for thyroid disorder Z13.29 5 08:40 AM Telephone Encounter [facility] [address] [facility] [place] [address] Anni Castillo 5 10:47 AM Telephone Encounter [place] [address] [facility] [place] [address] Anni Castillo 5 11:51 AM Telephone Encounter [address] [address] Melania Nayak Adult general medical examination Z00.00 and Opioid use disorder F11.99 5 03:13 PM Telephone Encounter [facility] [place] [address] Anni Castillo Social anxiety disorder F40.10 5 10:46 AM Telephone Encounter [address] [place] [address] Anni Castillo Opioid use disorder F11.99 and Social anxiety disorder F40.10 5 08:02 AM Telephone Encounter [facility] [place] [address] Melania Nayak 5 02:08 PM Telephone Encounter [facility] [place] [address] Rojas Alexis 5 03:27 PM Telephone Encounter [address] [place] [address] Melania Chowdhuryadeline 09:48 AM Telephone Encounter [facility] [address] [place] [address] Anniclark Castillo Assessments Encounter Date Diagnosis (ICD Code) Assessment Notes Treatment Notes Section Notes 11/09/2024 Substance abuse (ICD-10 - F19.10) 12/30/2024 Social anxiety disorder (ICD-10 - F40.10) 01/28/2025 Social anxiety disorder (ICD-10 - F40.10) 11/11/2024 Social anxiety disorder (ICD-10 - F40.10) Continue current medication. He is interesting in restarting Klonopin. Discussed Duloxetine. He does not want anymedication added other than Klonopin. Continue services as scheduled. Labs completed recently. May self-administer medications or be administered own oral medications per [facility] protocols. Provided informed consent with understanding of side effects, adverse effects, risks and benefits as well as alternative treatments as previously discussed and with the above recommended medications & other aspects of the treatment program. Agrees to return sooner if symptoms worsen or suicidal or homicidal ideations occur. 11/11/2024 Screening for thyroid disorder (ICD-10 - Z13.29) 11/16/2024 Over weight (ICD-10 - E66.3) 11/25/2024 Over weight (ICD-10 - E66.3) 12/16/2024 Over weight (ICD-10 - E66.3) 02/23/2025 Over weight (ICD-10 - E66.3) 02/23/2025 Over weight (ICD-10 - E66.3) 11/09/2024 Over weight (ICD-10 - E66.3) 12/30/2024 Obesity (BMI 30-39.9) (ICD-10 - E66.9) 12/02/2024 Obesity (BMI 30-39.9) (ICD-10 - E66.9) 12/30/2024 Adult general medical examination (ICD-10 - [...] increased pain/redness/swelling, or if soaking through bandages. 11/09/2024 Adult general medical examination (ICD-10 - [...] 11/25/2024 Opioid use disorder (ICD-10 - F11.99) 12/16/2024 Opioid use disorder (ICD-10 - F11.99) 12/30/2024 Opioid use disorder (ICD-10 - F11.99) Ongoing management with Suboxone. Patient reports continued use and requests refill, currently has 6 tablets left. No concerns or non-compliance reported. - Refill Suboxone 8 mg, four times daily, dispense 30 tablets. 01/13/2025 Opioid use disorder (ICD-10 - F11.99) 12/02/2024 Opioid use disorder (ICD-10 - F11.99) 02/24/2025 Opioid use disorder (ICD-10 - F11.99) History of opioid use disorder, currently taking Suboxone. Confirmed ongoing use and not out of medication. Discussed induction and refill with intake staff and hospital doctor. - Refill Suboxone, four times a day. 01/28/2025 Opioid use disorder (ICD-10 - F11.99) [...] box. - Support ongoing group meeting attendance. 11/09/2024 Low back pain, unspecified (ICD-10 - M54.50) 12/30/2024 Opioid use disorder (ICD-10 - F11.99) 02/23/2025 Substance abuse (ICD-10 - F19.10) 02/23/2025 Unprotected sex (ICD-10 - Z72.51) 01/28/2025 Obesity (BMI 30-39.9) (ICD-10 - E66.9) 11/16/2024 Dental abscess (ICD-10 - K04.7) Encouraged to f/u with dental provider for further evaluation and treatment. 11/09/2024 Over weight (ICD-10 - E66.3) 11/11/2024 NIDA (generalized anxiety disorder) (ICD-10 - F41.1) 01/13/2025 Social anxiety disorder (ICD-10 - F40.10) 11/09/2024 Diarrhea (ICD-10 - R19.7) 11/11/2024 Over weight (ICD-10 - E66.3) 02/23/2025 Mental health problem (ICD-10 - F48.9) 11/09/2024 Other Continue treatment as recommended by [facility] staff. Encouraged patient to obtain routine medical care with patient's own primary care provider or establish as a patient at [facility] if no current primary care provider. 11/09/2024 Other Clinician met w ith client to assess needs for residential services. Clinician gathered information regarding historical presentation of mental health and substance use symptoms including withdrawal, HIV Risk assessment, psychiatric hospitalization history and presenting concern. Clinician conducted PHQ9 and CSSRS assessments as well as social drivers of health screening for the purposes of identifying additional service needs. 11/16/2024 Other Patient agrees to take medication [...] May contact office with questions or concerns. 12/13/2024 Other pt not seen, destin bs drawn only 12/16/2024 Other Discussed medication side effects, adverse effects, risks, benefits, as well as interactions. Encouraged non-use of opioids. Has naloxone. Recommended participation in recovery groups and/or counseling services. May contact office with questions or concerns. 12/30/2024 Other Discussed medication side effects, adverse effects, risks, benefits, as well as interactions. Encouraged non-use of opioids. Has naloxone. Recommended participation in recovery groups and/or counseling services. May contact office with questions or concerns. 01/28/2025 Other Discussed medication side effects, adverse effects, risks, benefits, as well as interactions. Encouraged non-use of opioids. Has naloxone. Recommended participation in recovery groups and/or counseling services. May contact office with questions or concerns. 02/23/2025 Other Continue treatment as recommended by [facility] staff. Encouraged patient to obtain routine medical care with patient's own primary care provider or establish as a patient at [facility] if no current primary care provider. 02/23/2025 Other Clinician met w ith client to assess needs for residential services. Clinician gathered information regarding historical presentation of mental health and substance use symptoms including withdrawal, HIV Risk assessment, psychiatric hospitalization history and presenting concern. Clinician conducted PHQ9 and CSSRS assessments as well as social drivers of health screening for the purposes of identifying additional service needs. 02/24/2025 Other Discussed medication side effects, adverse effects, risks, benefits, as well as interactions. Encouraged non-use of opioids. Has naloxone. Recommended participation in recovery groups and/or counseling services. May contact office with questions or concerns. Plan Of Treatment Next Appt Details Provider Name:Melania jacques, 03/23/2025 08:40:00 AM, [address], [place], [address], Provider Name:Anni Proctor Lauren powell, 04/01/2025 08:20:00 AM, [address], [place], [address], Insurance Providers Payer Name Payer Address Payer Phone Subscriber Number Group Number Insured Name Patient Relationship to Insured Coverage Start Date Coverage End Date [facility] [address] [place] [address] [phone] [id number] Kwasi Mccabe Self - patient is the insured 5 [employer]ICA[employer]OL [employer]IC[employer] [address] [place] [address] [id number] Kwasi Mccabe Self - patient is the insured 5 Medical (General) History Medical History History ICD Code chronic anxiety depression Opioid use disorder Generalized anxiety disorder Insomnia Constipation Alcohol use disorder Surgical History Surgery Date(Month/Year) Hospitalization History Reason Date(Month/Year) Nadine 10/2024 Alcohol detox, [facility], 1
== END 2025-03-19 13:57 | disposition home or self-care (01) ==
PROVIDERS: Emergency Provider Emergency Medicine; PCP Registered Nurse
DX: S39.92XA Unspecified injury of lower back, initial encounter (principal); W01.0XXA Fall on same level from slipping, tripping and stumbling without subsequent striking against object, initial encounter
CPT/HCPCS: 72072; 72100; 99283

== ENCOUNTER 2025-03-20 13:25 | Emergency (ER) | payer BC, SELFPAY ==
--- OUTSIDE RECORDS SUMMARY | 2025-01-27 08:20 | XMS_ITS ---
Author Organization Formerly [facility] Address [address] [place] [address] Phone [phone] Care Team Providers Care Suction Worker Name Role Phone Rojas Alexis Primary Care Provider [phone] Melania Nayak APRN REASON FOR VISIT MAT F/U Social History Sex Observation Social History Observation Description Sex Observation Male Encounters Date Time Type Facility Location Provider Diagnosis 01/27/2025 08:20 AM Office Visit [facility]ly [facility], [facility] [address] [place] [address] Melania Nayak Plan Of Treatment Next Appt Details Provider Name:Melania jacques, 03/23/2025 08:40:00 AM, [address], [place], [address], Provider Name:Anni powell, 04/01/2025 08:20:00 AM, [address], [place], [address], Medical (General) History Medical History History ICD Code chronic anxiety depression Opioid use disorder Generalized anxiety disorder Insomnia Constipation Alcohol use disorder Surgical History Surgery Date(Month/Year) Hospitalization History Reason Date(Month/Year) Touchette 10/2024 Alcohol detox, [facility], 1 Progress Notes * Kwasi MCCABEDOB:1990 (34 yo M)Acc No.[id number]:01/27/2025 UNLOCKED PROGRESS NOTE Patient: Kwasi EARLY Provider: Panda Nayak, MSN, DAVIAN, FRONT END DEVELOPER JAVASCRIPT HTML CSS-C :1990 A ge:34 Y S ex:Male Date:01/27/2025 Phone: Address:[address] [place], [place] [phone] Pcp:Rojas Alexis Subjective: * Chief Complaints: * 1 . MAT F/U. * Screening: * * Medical History: Objective: * Vitals: Assessment: Plan: * Treatment: * Care Plan Details* * Electronic signature of Julienne Nayak APRN, [id number] on 03/20/2025 at 02:58 AM RETAIL OPERATIONS SPECIALIST Sign off status: Pending * Provider: NICOLE Monsalve, DAVIAN, FRONT END DEVELOPER JAVASCRIPT HTML CSS-C Date: 03/29/2024 Generated for Marlo feldman/Farzana/eTransmitting on: 05/21/2024 02:58 AM RETAIL OPERATIONS SPECIALIST
--- OUTSIDE RECORDS SUMMARY | 2025-03-08 14:55 | XMS_ITS ---
Author Organization [facility] Address [address] [place] [address] Phone [phone] Care Team Providers Care Instrumentation Technologist Name Role Phone Rojas Alexis Primary Care Provider [phone] REASON FOR VISIT hosp need f/u psyche 04/01 Social History Sex Observation Social History Observation Description Sex Observation Male Encounters Date Time Type Facility Location Provider Diagnosis 03/08/2025 02:55 PM Telephone Encounter [facility] [address] [place] [address] Rojas Alexis Plan Of Treatment Next Appt Details Provider Name:Melania jacques, 03/23/2025 08:40:00 AM, [address], [place], [address], Provider Name:Anni powell, 04/01/2025 08:20:00 AM, [address] [place], [address], Medical (General) History Medical History History ICD Code chronic anxiety depression Opioid use disorder Generalized anxiety disorder Insomnia Constipation Alcohol use disorder Surgical History Surgery Date(Month/Year) Hospitalization History Reason Date(Month/Year) Touchette 10/2024 Alcohol detox, [facility], 2025-02-0 1 Progress Notes * Kwasi MCCABEDOB:1990 (34 yo M)Acc No.[id number]:03/08/2025 UNLOCKED PROGRESS NOTE Patient: Kwasi EARLY :1990 A ge:34 Y S ex:Male Phone: Address:[address] [place] [address], [phone] Subjective: * Chief Complaints: * H osp [...] for the Visit: . hospital stay at [facility]. Visit Type and Location: . , [...] . . E R/Hospital F/U appointment with [facility]: Paresh [facility] f/u appointment date: 05/10/2024with Anni. A ppointment Kept? D id the patient keep the appointment with [facility]? .. N gil completing [facility] Viridiana Cm RN ., C [facility] Nurses .. * Medical History: * Surgical [...] recommended f/u: . ER/Hospital F/U appointment with [facility]: [facility] f/u appointment date:: 03/09/202504/01/giacomo Hutton Notification of ER/hospital visit from: ., Records received Reason for the Visit: .ho spital stay at [facility] Date of ER/urgen t visit or hospitalization: 03/01/25 Nurse completing documentation [facility] Nurses: Kate Cm RN . [facility] Nurses: . If instructed by nurse/provider, did the pt go to ER/UC? ER/Urgent Care follow-throug h: The nurse or provider did not initiate the ER/urgent care visit. . Appointment Kept? Did the patient keep the appointment with [facility]?: .
--- OUTSIDE RECORDS SUMMARY | 2025-03-09 13:00 | XMS_ITS ---
[facility] Organization [facility] Address [address] [place] [address] Phone [phone] Care Team Providers Care Hand Wood Sander Name Role Phone Rojas Alexis Primary Care Provider [phone] REASON FOR VISIT last seen on CRU Medications Medication SIG (Take, Route, Frequency, Duration) Notes Start Date End Date Diagnosis (ICD Code) Status QUEtiapine Fumarate 150 MG Tablet 1 tablet at bedtime Orally Once a day Adult general medical examination (ICD_10 - Z00.00) Active Docusate Sodium 100 MG Capsule 1 capsule as needed Orally Once a day 12/02/2024 Adult general medical examination (ICD_10 - Z00.00) Active Escitalopram Oxalate 20 MG Tablet 1 tablet Orally Once a day Adult general medical examination (ICD_10 - Z00.00) Active QUEtiapine Fumarate 25 MG Tablet 1/2 to 1 tablet as needed Orally twice a day; Duration: 30 days 02/24/2025 Active traZODone HCl 50 MG Tablet 1 tablet at bedtime as needed Orally Once a day; Duration: 30 days 02/24/2025 Active hydrOXYzine Pamoate 25 MG Capsule 1-2 capsules Orally every 4 hours as needed for anxiety, agitation, or inability to sleep. Do not give within 4 hours of diphenhydramine.; Duration: 30 days 02/23/2025 Adult general medical examination (ICD_10 - Z00.00) Active DULoxetine HCl 20 MG Capsule Delayed Release Particles 1 capsule Orally twice a day 11/12/2024 Adult general medical examination (ICD_10 - Z00.00) Active Multi Vitamin - Tablet 1 tablet Orally Once a day; Duration: 30 days 02/23/2025 Adult general medical examination (ICD_10 - Z00.00) Active Melatonin 5 MG Tablet 1 tablet at bedtime as needed Orally Once a day; Duration: 30 days 02/23/2025 Adult general medical examination (ICD_10 - Z00.00) Active Nicotine 21 MG/24HR Patch 24 Hour 1 patch to skin. Transdermal Once a day, removing at bedtime; Duration: 28 days 02/23/2025 Adult general medical examination (ICD_10 - Z00.00) Active Buprenorphine HCl-Naloxone HCl 8-2 MG Tablet Sublingual 1 tablet under the tongue and allow to dissolve Sublingual 4 times a day 02/24/2025 Opioid use disorder (ICD_10 - F11.99) Active hydrOXYzine Pamoate 25 mg Capsule TAKE 1 CAPSULE BY MOUTH THREE TIMES A DAY NEEDED; Duration: 30 Opioid use disorder (ICD_10 - F11.99) Active Nicotine Polacrilex 4 MG Lozenge 1 lozenge as needed for nicotine cravings Mouth/Throat Up to once per hour (maximum of 15 lozenges per day); Duration: 7 days 02/23/2025 Adult general medical examination (ICD_10 - Z00.00) Active Social History Sex Observation Social History Observation Description Sex Observation Male Encounters Date Time Type Facility Location Provider Diagnosis 03/09/2025 01:00 PM Office Visit [facility] [place] [address] [address] [place] [address] Rojas Alexis Plan Of Treatment Next Appt Details Provider Name:Melania jacques, 03/23/2025 08:40:00 AM, [address], [place], [address], Provider Name:Anni powell, 04/01/2025 08:20:00 AM, [address], [place], [address], Medical (General) History Medical History History ICD Code chronic anxiety depression Opioid use disorder Generalized anxiety disorder Insomnia Constipation Alcohol use disorder Surgical History Surgery Date(Month/Year) Hospitalization History Reason Date(Month/Year) [facility] 10/2024 Alcohol detox, [facility], 2024-12-0 1 Progress Notes * Kwasi MCCABEDOB:1990 (34 yo M)Acc No.[id number]:03/09/2025 UNLOCKED PROGRESS NOTE Progress Notes Patient: Kwasi EARLY Provider: Joshua Alexis APN :1990 A ge:34 Y S ex:Male Date:03/09/2025 Phone: Address:[address] [place], [place] [phone] Subjective: * Chief Complaints: * 1 . last seen on CRU. * Screening: * * Medical History: * Medications: T aking Buprenorphine HCl-Naloxone HCl 8-2 MG Tablet Sublingual 1 tablet under the tongue and allow to dissolve Sublingual 4 times a day , Taking hydrOXYzine Pamoate 25 mg Capsule TAKE 1 CAPSULE BY MOUTH THREE TIMES A DAY NEEDED , Taking Nicotine Polacrilex 4 MG Lozenge 1 lozenge as needed for nicotine cravings Mouth/Throat Up to once per hour (maximum of 15 lozenges per day) , Taking Multi Vitamin - Tablet 1 tablet Orally Once a day , Taking Melatonin 5 MG Tablet 1 tablet at bedtime as needed Orally Once a day , Taking Nicotine 21 MG/24HR Patch 24 Hour 1 patch to skin. Transdermal Once a day, removing at bedtime , Taking hydrOXYzine Pamoate 25 MG Capsule 1-2 capsules Orally every 4 hours as needed for anxiety, agitation, or inability to sleep. Do not give within 4 hours of diphenhydramine. , Taking DULoxetine HCl 20 MG Capsule Delayed Release Particles 1 capsule Orally twice a day , Taking QUEtiapine Fumarate 150 MG Tablet 1 tablet at bedtime Orally Once a day , Taking Docusate Sodium 100 MG Capsule 1 capsule as needed Orally Once a day , Taking Escitalopram Oxalate 20 MG Tablet 1 tablet Orally Once a day , Taking QUEtiapine Fumarate 25 MG Tablet 1/2 to 1 tablet as needed Orally twice a day , Taking traZODone HCl 50 MG Tablet 1 tablet at bedtime as needed Orally Once a day Objective: * Vitals: Assessment: Plan: * Treatment: * * Electronic signature of Darrion Alexis on 03/20/2025 at 02:58 AM PARACHUTE RIGGER Sign off status: Pending * Provider: Joshua Alexis APN Date: 1 05/10/2024 Generated for Marlo feldman/Farzana/Michael on: 05/21/2024 02:58 AM PARACHUTE RIGGER
--- OUTSIDE RECORDS SUMMARY | 2025-03-20 02:57 | XMS_ITS | Encounter Summary ---
Author Organization [facility] Healthcare Address [address] [place] [address] Care Team Providers Care Kick Plate Installer Name Role Phone No, Physician Primary Care Provider [phone] Reason for Visit * Reason Comments Arm Pain Encounter Details Date Type Department Care Team (Late st Contact Info) Description 03/20/2025 2:57 AM YARN INSPECTOR - 03/20/2025 3:29 AM [facility] Emergency [address] [address] Discharge Disposition: Left without being seen Social History Tobacco Use Types Packs/Day Years Used Date Smoking Tobacco: Every Day E-cigarettes Smokeless Tobacco: Never Alcohol Use Standard Drinks/Week Comments Yes 0 (1 standard drink = 0.6 oz pur e alcohol) Social Connection and Isolation Panel Answer Date Recorded In a typical week, how many times do you talk on the phone with family, friends, or neighbors? Twice a week 02/22/2025 How often do you get together with friends or re latives? Once a week 02/22/2025 How often do you attend jewish or pentecostalism serv ices? Never 02/22/2025 Do you belong to any clubs o r organizations such as jewish groups, unions, fraternal or athletic groups, or [...] any time in the past 12 m [facility], were you homeless or living in a intermediate (including now)? Yes 02/22/2025 [facility] Utilities Answer Date Recorded In the past 12 months has th e electric, gas, oil, or water company threatened to shut off services in your home? Yes 02/22/2025 Personal Safety Answer Date Recorded Have you ever been in or are you currently in a harmful physical or emotional relationship or is someone making you feel afraid or unsafe? Denies 03/20/2025 Sex and Gender Information Value Date Recorded Sex Assigned at Not on file Legal Sex Male 12:52 PM CDT Gender Identity Not on file Sexual Orientation Not on file documented as of this encounter Last Filed Vital Signs Vital Sign Reading Time Taken Comments Blood Pressure 144/95 03/20/2025 3:03 AM YARN INSPECTOR Pulse 85 03/20/2025 3:03 AM YARN INSPECTOR Temperature 36.3 C (97.3 F) 03/20/2025 3:03 AM YARN INSPECTOR Respiratory Rate 20 03/20/2025 3:03 AM YARN INSPECTOR Oxygen Saturation 97% 03/20/2025 3:03 AM YARN INSPECTOR Inhaled Oxygen Concentration - - Weight 94.3 kg (208 lb) 03/20/2025 3:18 AM YARN INSPECTOR Height - - Body Mass Index 30.72 02/21/2025 8:30 PM YARN INSPECTOR documented in this encounter Functional Status * Encounter Related Suicide Attempt/Behavior: Whenever possible, conduct screening in private to create a confidential environment. Question Answer Date of Assessment Author Is the patient being treated today because it is known or suspected that they prepared, started, or tried to end their life? No 03/20/2025 3:16 AM Daniela Núñez RN * [place] Suicide Severity Rating Scale (Recent Screener) Question Answer Date of Assessment Author 1. In the past month, have you wished you were or that you could go to sleep and not wake up? No 03/20/2025 3:16 AM Daniela Núñez, ANGELIQUE 2. In the past month, have you actually had any thoughts of killing yourself? No 03/20/2025 3:16 AM Daniela Núñez RN 6. Have you ever done anything, started to do anything, or prepared to do anything to end your life? No 03/20/2025 3:16 AM [place] Núñez RN * Suicide Risk Level Answer Date of Assessment Author No risk level 03/20/2025 3:16 AM Alexia Núñez RN * Fall Risk Assessment Tool - MEDFRAT Question Answer Date of Assessment Author Prior Fall Event (Autopopulated from EMR) None found 03/20/2025 3:19 AM Ida Núñez RN History of falling in last 3 months, including since admission 0 03/20/2025 3:19 AM Daniela Núñez RN Confusion or disorientation 0 03/20/2025 3: 19 AM Daniela Núñez RN Intoxicated or sedated 0 03/20/2025 3:19 AM Daniela Núñez RN Impaired gait 0 03/20/2025 3:19 AM Daniela Núñez RN Mobility assist device used 0 03/20/2025 3: 19 AM Daniela Núñez RN Altered elimination 0 03/20/2025 3:19 AM Daniela Boykin RN Fall risk score: (1-2 low risk), (3-4 moderate risk), (5 or more high risk) 0 03/20/2025 3:19 AM Daniela Núñez RN * Vital Signs Question Answer Date of Assessment Author BP Location Right arm 03/20/2025 3:03 AM Gina Perez BP Method Automatic 03/20/2025 3:03 AM YARN INSPECTOR Gina Oden MAP (mmHg) 109 03/20/2025 3:03 AM YARN INSPECTOR Gina Oden * Vital Signs Question Answer Date of Assessment Author BP Location Right arm 03/20/2025 3:03 AM Gina Perez BP Method Automatic 03/20/2025 3:03 AM Gina Perez documented as of this encounter Medications at Time of Discharge buprenorphine-na loxone (SUBOXONE) 8-2 mg per SL tablet Place 1 tablet under the tongue 4 (four) times a day 15 tablet 02/23/2025 docusate sodium (COLACE) 100 mg capsule Take 1 capsule (100 mg total) by mouth daily as needed for constipation DULoxetine DR (CYMBALTA) 20 mg capsule Take 1 capsule (20 mg total) by mouth 2 (two) times a day 60 capsule 02/23/2025 escitalopram (LEXAPRO) 20 mg tablet Take 1 tablet (20 mg total) by mouth every morning 60 tablet 02/23/2025 hydrOXYzine (VISTARIL) 25 mg capsule Take 1 capsule (25 mg total) by mouth 3 (three) times a day as needed for anxiety 30 capsule 02/23/2025 QUEtiapine XR (SEROquel XR) 150 mg 24 hr tablet Take 1 tablet (150 mg total) by mouth nightly 30 tablet 02/23/2025 documented as of this encounter Discharge Disposition Disposition Code Departure Means Destination Left without being seen documented in this encounter ED Notes * Daniela Henriquez RN - 03/20/2025 3:17 AM CST Patient states he is having shooting pains in his left arm for the last 45 min. Patient is very anxious in triage and unable to sit still HX anxiety and depression INSPECTOR documented in this encounter Plan of Treatment Not on file documented as of this encounter Visit Diagnoses Not on filedocumented in this encounter Care Teams Kick Plate Installer Relationship Specialty Start Date End Date No, Physician PCP - General 10/27/24 documented as of this encounter
--- OUTSIDE RECORDS SUMMARY | 2025-03-20 04:06 | XMS_ITS | Encounter Summary ---
Author Organization [facility] Healthcare Address [address] [place] [address] Care Team Providers Care Elementary Instructional Coach Name Role Phone No, Physician Primary Care Provider [phone] Encounter Details Date Type Department Care Team (Late st Contact Info) Description 03/20/2025 4:06 AM TECHNICAL INSPECTOR - 03/20/2025 4:22 AM [facility] Emergency [address] [address] Discharge Disposition: Left without being seen Social [...] week 02/22/2025 How often do you attend lutheran or voodoo serv ices? Never 02/22/2025 Do you belong to any clubs o r organizations such as lutheran groups, unions, fraternal or athletic groups, or [...] any time in the past 12 m [facility], were you homeless or living in a longterm (including now)? Yes 02/22/2025 [facility] Utilities Answer Date Recorded In the past [...] on file documented as of this encounter Medications at [...] documented in this encounter ED Notes * Renuka Franklin RN - 03/20/2025 4:18 AM CST Pt resigned into ED after leaving with prior complaint of arm pain. Pt told cardiac cath lab technologist upon resigning in that his arm hurts and he waited a long time to be seen last time, so he will just say he's suicidal so we have to see him quickly. cardiac cath lab technologist attempted to take VS and pt became aggressive, ripping his BP cuff off and stated he was going elsewhere to have his arm assessed. Pt then left the ED. Renuka Franklin RN 03/20/25 0421 NICAL INSPECTOR documented in this encounter Plan of Treatment Not on file documented as of this encounter Visit Diagnoses Not on filedocumented in this encounter Care Teams Elementary Instructional Coach Relationship Specialty Start Date End Date No, Physician PCP - General 10/27/24 documented as of this encounter
--- OUTSIDE RECORDS SUMMARY | 2025-03-20 05:07 | XMS_ITS | Encounter Summary ---
Author Organization [facility] Healthcare Address [address] [place] [address] Care Team Providers Care Supervisor Shuttle Fitting Name Role Phone No, Physician Primary Care Provider [phone] Reason for Visit * Reason Comments Suicidal Ideation Encounter Details Date Type Department Care Team (Late st Contact Info) Description 03/20/2025 5:07 AM INTERIOR DESIGN PRINCIPAL - 03/20/2025 7:05 AM [facility] Emergency [address] [address] Acute left-sided low back pain without sciatica (Primary Dx); Left arm pain Discharge Disposition: Discharge to home or self care Social History Tobacco Use Types Packs/Day Years [...] week 02/22/2025 How often do you attend mandaen or oriental orthodox serv ices? Never 02/22/2025 Do you belong to any clubs o r organizations such as mandaen groups, unions, fraternal or athletic groups, or [...] any time in the past 12 m ont, were you homeless or living in a half-way (including now)? Yes 02/22/2025 [facility] Utilities Answer Date Recorded In the past 12 months has th e PT PAL, gas, oil, or water company threatened to [...] Sign Reading Time Taken Comments Blood Pressure 140/84 03/20/2025 4:57 AM INTERIOR DESIGN PRINCIPAL Pulse 87 03/20/2025 4:57 AM INTERIOR DESIGN PRINCIPAL Temperature 36.4 C (97.5 F) 03/20/2025 4:57 AM INTERIOR DESIGN PRINCIPAL Respiratory Rate 18 03/20/2025 4:57 AM INTERIOR DESIGN PRINCIPAL Oxygen Saturation 98% 03/20/2025 4:57 AM INTERIOR DESIGN PRINCIPAL Inhaled Oxygen Concentration - - Weight - - Height - - Body Mass Index - - documented in this encounter Functional Status * Encounter Related Suicide Attempt/Behavior: Whenever possible, conduct screening in private to create a confidential environment. Question Answer Date of Assessment Author Is the patient being treated today because it is known or suspected that they prepared, started, or tried to end their life? Yes 03/20/2025 5:03 AM Francesco Perry RN * [place] Suicide Severity Rating Scale (Recent Screener) Question Answer Date of Assessment Author 1. In the past month, have you wished you were or that you could go to sleep and not wake up? Yes 03/20/2025 5:03 AM Francesco Perry RN 2. In the past month, have you actually had any thoughts of killing yourself? Yes 03/20/2025 5:03 AM Francesco Perry RN 6. Have you ever done anything, started to do anything, or prepared to do anything to end your life? No 03/20/2025 5:03 AM Panda Perry RN * Suicide Risk Level Answer Date of Assessment Author High 03/20/2025 5:03 AM Francesco Perry RN * Fall Risk Assessment Tool - MEDFRAT Question Answer Date of Assessment Author Prior Fall Event (Autopopulated from EMR) None found 03/20/2025 5:08 AM Sahil Perry RN History of falling in last 3 months, including since admission 0 03/20/2025 5:08 AM Francesco Perry RN Confusion or disorientation 0 03/20/2025 5: 08 AM Francesco Perry RN Intoxicated or sedated 0 03/20/2025 5:08 AM Francesco Perry RN Impaired gait 0 03/20/2025 5:08 AM Francesco Pearl RN Mobility assist device used 0 03/20/2025 5: 08 AM Francesco Perry RN Altered elimination 0 03/20/2025 5:08 AM Francesco Ballard RN Fall risk score: (1-2 low risk), (3-4 moderate risk), (5 or more high risk) 0 03/20/2025 5:08 AM Francesco Perry RN * Vital Signs Question Answer Date of Assessment Author BP Location Right arm 03/20/2025 4:57 AM Irving Hooks BP Method Automatic 03/20/2025 4:57 AM Irving Hooks MAP (mmHg) 102 03/20/2025 4:57 AM Irving Hooks * Vital Signs Question Answer Date of Assessment Author BP Location Right arm 03/20/2025 4:57 AM Irving Hooks BP Method Automatic 03/20/2025 4:57 AM Irving Hooks documented as of this encounter Discharge Instructions * Attachments The following attachments cannot be sent through Care Everywhere. * Acute Low Back Pain (AfterCare(R) Instructions(ER/ED)) ([place]) documented in this encounter Medications at Time of Discharge [...] Discharge Disposition Disposition Code Departure Means Destination Comment s Discharge to home or self care documented in this encounter ED Notes * Christine Rosa PA - 03/20/2025 6:55 AM CST ED NOTE Chief Complaint Chief Complaint Patient presents with Suicidal Ideation History of Present Illness The patient is a 34 y.o. male who presents for evaluation of left low back pain and left arm pain s/p fall this morning. Patient checked into the ER 2 other times this morning but left prior to beingseen because he did not want to wait. The 2nd time he checked in he had stated he was going to say he is suicidal to get seen sooner. He then ripped off the blood pressure cuff and said he was going to go elsewhere to be seen. For this visit he checks in and told triage nurse that he feels suicidaland depressed as well as his arm pain. Patient was accompanied by security to room 7. He was agreeable to labs. He told the nurse that he is not suicidal and that he only said that earlier to try to get seen faster. Upon my evaluation, patient is only complaining of left lower back pain and left arm pain after a fall this morning. States he slipped and fell onto his bottom. In regards to the suicidal comments, patient states that he is not suicidal and does not want to harm himself or others. States he only said that because he wanted attention and thought he would get seen sooner. Medical History ALLERGIES: No Known Allergies MEDICATIONS: Prior to Admission medications Medication Sig Start Date End Date Taking? Authorizing Provider buprenorphine-naloxone (SUBOXONE) 8-2 mg per SL tablet Place 1 tablet under the tongue 4 (four) times a day 02/23/25 Sonia Allred MD docusate sodium (COLACE) 100 mg capsule Take 1 capsule (100 mg total) by mouth daily as needed for constipation Provider, MD Jonah DULoxetine DR (CYMBALTA) 20 mg capsule Take 1 capsule (20 mg total) by mouth 2 (two) times a day 02/23/25 Sonia Allred MD escitalopram (LEXAPRO) 20 mg tablet Take 1 tablet (20 mg total) by mouth every morning 02/23/25 Sonia Allred MD hydrOXYzine (VISTARIL) 25 mg capsule Take 1 capsule (25 mg total) by mouth 3 (three) times a day asneeded for anxiety 02/23/25 Sonia Allred MD QUEtiapine XR (SEROquel XR) 150 mg 24 hr tablet Take 1 tablet (150 mg total) by mouth nightly 02/23/25 Sonia Allred MD PAST MEDICAL HISTORY: No past medical history on file. PAST SURGICAL HISTORY: No past surgical history on file. FAMILY HISTORY: No family history on file. SOCIAL HISTORY: Social History Tobacco Use Smoking status: Every Day Types: E-cigarettes Smokeless tobacco: Never Substance and Sexual Activity Drug use: Yes Types: Marijuana Sexual activity: Not on file Alcohol Use: Alcohol Misuse (12/31/2023) Received from [facility] AUDIT-C Q1: How often do you have a drink containing alcohol?: 2-3 times a week Q2: How many drinks containing alcohol do you have on a typical day when you are drinking?: 3 or 4 Q3: How often do you have six or more drinks on one occasion?: Monthly Review of Systems All systems reviewed and are neg or non contributory for this patients presentation today other than as stated in the HPI . Physical Exam BP 136/80 (Patient Position: Sitting) Pulse 80 Temp 36.4 ??C (97.5 ??F) (Oral) Resp 16 [id number]% Physical Exam Vitals and nursing note reviewed. Eyes: Conjunctiva/sclera: Conjunctivae normal. Cardiovascular: Rate and Rhythm: Normal rate and regular rhythm. Pulses: Normal pulses. Heart sounds: Normal heart sounds. Pulmonary: Effort: Pulmonary effort is normal. Breath sounds: Normal breath sounds. Musculoskeletal: General: Normal range of motion. Cervical back: Normal range of motion and neck supple. Comments: Good ROM left arm. NVI. Tenderness left upper buttock. No overlying skin changes. Neurovascularly intact. Ambulatory Skin: General: Skin is warm. Capillary Refill: Capillary refill takes less than 2 seconds. Neurological: General: No focal deficit present. Mental Status: He is alert. Psychiatric: Mood and Affect: Mood normal. Diagnostic Studies / Procedures LABORATORY STUDIES: Labs Reviewed URINALYSIS AND REFLEX TO MICROSCOPIC AND CULTURE - Abnormal Result Value Color, ur Yellow Clarity, ur Clear Specific gravity, ur 1.019 pH, urine 7.5 Protein, ur ql Negative Glucose, ur ql Negative Ketones, ur Negative Bilirubin, ur Negative Blood, ur Negative Urobilinogen, ur 2.0 (*) Nitrite, ur Negative Leukocyte esterase, ur Negative UA reflex comment Value: Reflex conditions for microscopic UA and culture not met. CBC WITH AUTO DIFFERENTIAL - Abnormal WBC 8.33 Hgb 12.9 (*) Hct 38.1 (*) Plt 226 MPV 10.8 RBC 4.39 MCV 86.8 MCH 29.4 MCHC 33.9 RDW CV 13.0 RDW SD 41.0 NRBC abs 0.00 DRUGS OF ABUSE SCREEN, URINE WITHOUT CONFIRMATION - Abnormal Amphetamine, ur Not Detected Barbiturates, ur Not Detected Benzodiazepines, ur Screen Positive, presumptive (*) Cannabinoids, ur Screen Positive, presumptive (*) Cocaine, ur Not Detected Fentanyl, Ur Not Detected Methadone, ur Not Detected Opiates, ur Not Detected Oxycodone, ur Not Detected Phencyclidine, ur Not Detected Urine Creatinine 92 Narrative: Drug of Abuse screening is performed by immunoassay for medical purposes only. This is not to be used for Pain Management purposes. COVID-19 CORONAVIRUS RNA COVID-19 RNA Negative Narrative: Is the patient experiencing any symptoms consistent with COVID (eg. Fever, cough, shortness of breath)?->No What is the reason for testing?->Screening prior to Behavioral health admission Interpretive data Testing performed by [facility]. This test is performed using the [employer] Xpert Xpress CoV-2 plus assay. This is a real-time RT-PCR test intended for the qualitative detection of nucleic acid from the SARS-CoV-2. This assay has been cleared by the [place] Food and Drug administration. The performance characteristicshave been verified by the [facility]. Results must be considered in the clinical context, and a negative result does not rule out infection. Interpretive data last revised 2023. Interpretive data Testing performed by [facility]. This test is performed using the [employer] Xpert Xpress CoV-2 plus assay. This is a real-time RT-PCR test intended for the qualitative detection of nucleic acid from the SARS-CoV-2. This assay has been cleared by the [place] Food and Drug administration. The performance characteristicshave been verified by the [facility]. Results must be considered in the clinical context, and a negative result does not rule out infection. Interpretive data last revised 2023. COMPREHENSIVE METABOLIC PANEL Sodium 140 Potassium, pl 4.0 Chloride 103 CO2 27 Anion gap 10 BUN 14 Creatinine 0.90 Glucose 105 Calcium 8.9 Bilirubin, total 0.3 Protein, pl 6.7 Albumin 4.2 Alk phos 68 ALT 15 AST 25 THYROID FUNCTION CASCADE TSH 0.92 ETHANOL Ethanol <10 ACETAMINOPHEN LEVEL Acetaminophen <5 SALICYLATE LEVEL Salicylate <1.0 DIFFERENTIAL AUTO Neutrophil abs 4.68 Imm gran abs 0.02 Lymphocyte abs 2.68 Monocyte abs 0.53 Eosinophil abs 0.39 Basophil abs 0.03 Neutrophil pct 56.1 Imm gran pct 0.2 Lymphocyte pct 32.2 Monocyte pct 6.4 Eosinophil pct 4.7 Basophil pct 0.4 EGFR eGFR >90 IMAGING STUDIES: No orders to display No results found. Procedures ED Course / Medical Decision Making MDM Number of Diagnoses or Management Options Acute left-sided low back pain without sciatica Left arm pain Diagnosis management comments: DDX includes but is not limited to: fracture, back strain, spasm, other Patient presented for left low back pain and left arm pain after fall today. Neurovascularly intact. Ambulatory. I offered imaging but patient declined. Patient admits suicidal comment upon arrival. He told nursing staff as well as myself that he only said that to try to get seen sooner. He is denying SI or HI. He is calm. States he would just like to go home and rest his back. Strict verbal return precautions reviewed. Patient expresses verbal understanding and agreement with plan. All questions answered to the best of my ability. Nontoxic exit exam. Patient discharged home in stable condition. Medications - No data to display Diagnoses that have been ruled out: None Diagnoses that are still under consideration: None Final diagnoses: Acute left-sided low back pain without sciatica Left arm pain Disposition: DISPOSITION: Home Follow-Up: PCP Referral Line Call [phone] to be provided a PCP and arrange a follow up appointment Call in 1 week HEATHER Ford 03/20/2025 Christine Rosa PA 03/20/25 1032 RIOR DESIGN PRINCIPAL * Adeline Cyr RN - 03/20/2025 6:42 AM CST Pt stating to staff that he is not suicidal, he just stated that he was earlier so that he could get a room faster. Adeline Cyr RN 03/20/25 0631 RIOR DESIGN PRINCIPAL * Adeline Cyr RN - 03/20/2025 6:09 AM CST Pt changed into SI safe scrubs. PT and belongs searched. Pt belongings to locker #3 Sitter at bedside Pt agitated and yelling at staff that he wants pain meds, a drink, and to speak to his Provider. Ptupdated on progress and given water. Provider made aware. Adeline Cyr RN 03/20/25 0614 Adeline Cyr RN 03/20/25 0627 RIOR DESIGN PRINCIPAL RIOR DESIGN PRINCIPAL * Renuka Franklin RN - 03/20/2025 5:34 AM CST Pt requesting the tech to get meds to knock him out. When asked what he is referring to, he states benadryl and haldol. Provider notified. Renuka Franklin RN 03/20/25 0536 RIOR DESIGN PRINCIPAL * Francesco Hemphill RN - 03/20/2025 5:03 AM CST Per pt I feel suicidal, I'm depressed, I just dont like myself, my arm hurts, I have a plan of jumping in front of a car Pt 3 visit to ED this AM. RIOR DESIGN PRINCIPAL documented in this encounter Plan of Treatment Not on file documented as of this encounter Procedures Procedure Name Priority Date/Time Associated Diagnosis Comments COVID-19 CORONAVIRUS RNA STAT 03/20/2025 5:37 AM INTERIOR DESIGN PRINCIPAL EGFR STAT 03/20/2025 5:37 AM INTERIOR DESIGN PRINCIPAL DIFFERENTIAL AUTO STAT 03/20/2025 5:3 7 AM INTERIOR DESIGN PRINCIPAL THYROID FUNCTION CASCADE STAT 03/20/2025 5:37 AM INTERIOR DESIGN PRINCIPAL URINALYSIS AND REFLEX TO MICROSCOPIC AND CULTURE STAT 03/20/2025 5:37 AM INTERIOR DESIGN PRINCIPAL CBC WITH AUTO DIFFERENTIAL STAT 03/20/2025 5:37 AM INTERIOR DESIGN PRINCIPAL DRUGS OF ABUSE SCREEN, URINE WITHOUT CONFIRMATION STAT 03/20/2025 5:37 AM INTERIOR DESIGN PRINCIPAL ETHANOL STAT 03/20/2025 5:37 AM INTERIOR DESIGN PRINCIPAL ACETAMINOPHEN LEVEL STAT 03/20/2025 5 :37 AM INTERIOR DESIGN PRINCIPAL SALICYLATE LEVEL STAT 03/20/2025 5:37 AM INTERIOR DESIGN PRINCIPAL COMPREHENSIVE METABOLIC PANEL STAT 03/20/2025 5:37 AM INTERIOR DESIGN PRINCIPAL documented in this encounter Results * eGFR (03/20/2025 5:37 AM INTERIOR DESIGN PRINCIPAL) eGFR >90 >=60 mL/min/1. 73 m2 Comment: [...] interpretive data was last reviewed 2021. Blood 03/20/2025 5:37 AM INTERIOR DESIGN PRINCIPAL 03/20/2025 5:41 AM INTERIOR DESIGN PRINCIPAL us Lissa ROMERO LAB BLOOD ORDERABLES F inal Result [facility] [address] [place] [address] Department [place] [address] * Differential, auto (03/20/2025 5:37 AM INTERIOR DESIGN PRINCIPAL) Neutrophil abs 4.68 1.50 - 6.50 K/cumm Imm gran abs 0.02 0.00 - 0.10 K/cumm [facility] Lymphocyte abs 2.68 0.80 - 3.30 K/cumm [facility] Monocyte abs 0.53 0.20 - 0.80 K/cumm [facility] Eosinophil abs 0.39 0.00 - 0.50 K/cumm [facility] Basophil abs 0.03 0.00 - 0.10 K/cumm [facility] Neutrophil pct 56.1 % [facility] Comment: Interpretive Data Percent cell count reference ranges are not reported, since discordance with absolute values may lead to misinterpretation of CBC data. Current Interpretive Data was last revised on 2017. Imm gran pct 0.2 % [facility] Comment: Interpretive Data Percent cell count reference ranges are not reported, since discordance with absolute values may lead to misinterpretation of CBC data. Current Interpretive Data was last revised on 2017. Lymphocyte pct 32.2 % [facility] Comment: Interpretive Data Percent cell count reference ranges are not reported, since discordance with absolute values may lead to misinterpretation of CBC data. Current Interpretive Data was last revised on 2017. Monocyte pct 6.4 % [facility] Comment: Interpretive Data Percent cell count reference ranges are not reported, since discordance with absolute values may lead to misinterpretation of CBC data. Current Interpretive Data was last revised on 2017. Eosinophil pct 4.7 % [facility] Comment: Interpretive Data Percent cell count reference ranges are not reported, since discordance with absolute values may lead to misinterpretation of CBC data. Current Interpretive Data was last revised on 2017. Basophil pct 0.4 % [facility] Comment: Interpretive Data Percent cell count reference ranges are not reported, since discordance with absolute values may lead to misinterpretation of CBC data. Current Interpretive Data was last revised on 2017. Blood 03/20/2025 5:37 AM INTERIOR DESIGN PRINCIPAL 03/20/2025 5:41 AM INTERIOR DESIGN PRINCIPAL Lissa ROMERO LAB BLOOD ORDERABLES F inal Result Performing Organization Address [facility]/ZIP Co de Phone Number [facility] [place] [address] * COVID-19 Coronavirus RNA Nasopharyngeal (03/20/2025 5:37 AM INTERIOR DESIGN PRINCIPAL) COVID-19 RNA Negative Negative Nasopharyngeal 03/20/2025 5: 37 AM INTERIOR DESIGN PRINCIPAL 03/20/2025 5:41 AM INTERIOR DESIGN PRINCIPAL Narrative [facility] - 03/20/2025 7:17 AM INTERIOR DESIGN PRINCIPAL Is the patient experiencing any symptoms consistent with COVID (eg. Fever, cough, shortness of breath)?->No What is the reason for testing?->Screening prior to Behavioral health admission Interpretive data Testing performed by [facility]. This test is performed using the [employer] Xpert Xpress CoV-2 plus assay. This is a real-time RT-PCR test intended for the qualitative detection of nucleic acid from the SARS-CoV-2. This assay has been cleared by the [place] Food and Drug administration. The performance characteristics have been verified by the [facility]. Results must be considered in the clinical context, and a negative result does not rule out infection. Interpretive data last revised 2023. Interpretive data Testing performed by [facility]. This test is performed using the [employer] Xpert Xpress CoV-2 plus assay. This is a real-time RT-PCR test intended for the qualitative detection of nucleic acid from the SARS-CoV-2. This assay has been cleared by the [place] Food and Drug administration. The performance characteristics have been verified by the [facility]. Results must be considered in the clinical context, and a negative result does not rule out infection. Interpretive data last revised 2023. Lissa ROMERO LAB MICROBIOLOGY - GEN ERAL ORDERABLES Final Result Performing Organization Address City/[facility]/ZIP Co de Phone Number [facility] [address] [facility] [place] [address] * Salicylate level (03/20/2025 5:37 AM INTERIOR DESIGN PRINCIPAL) Salicylate <1.0 <=1.0 mg/dL Comment: Interpretive Data Toxic: 30 mg/dL or greater. Current interpretive data was last revised 2022. Blood 03/20/2025 5:37 AM INTERIOR DESIGN PRINCIPAL 03/20/2025 5:41 AM INTERIOR DESIGN PRINCIPAL Lissa ROMERO LAB BLOOD ORDERABLES F inal Result Performing Organization Address [facility] de Phone Number [address] [place] [address] * Acetaminophen level (03/20/2025 5:37 AM INTERIOR DESIGN PRINCIPAL) Pathologist [facility] Acetaminophen <5 <=5 mcg/mL Comment: Interpretive Data Significant hepatic injury may occur and treatment with n-acetyl cysteine is generally recommended if the acetaminophen level exceeds: 150 mcg/mL at 4 hours after ingestion 75 mcg/mL at 8 hours after ingestion 38 mcg/mL at 12 hours after ingestion 19 mcg/mL at 16 hours after ingestion Consult toxicology or poison control ([phone]) for unknown ingestion time. Current interpretive data was last revised 2022. Blood 03/20/2025 5:3 7 AM INTERIOR DESIGN PRINCIPAL 03/20/2025 5:41 AM INTERIOR DESIGN PRINCIPAL Lissa ROMERO LAB BLOOD ORDERABLES F inal Result Performing Organization Address [facility] Co de Phone Number [address] [place] [address] * (ABNORMAL) Urinalysis reflex to microscopic and culture Urine (03/20/2025 5:37 AM INTERIOR DESIGN PRINCIPAL) Color, ur Yellow Yellow Clarity, ur Clear Clear [facility] Specific gravity, ur 1.019 1.003 - 1.030 [facility] pH, urine 7.5 [facility] Comment: Interpretive Data U rine pH is affected by diet, medications, systemic acid-base disturbances, and renal tubular function. pH may affect urinary stone formation. For example, urine pH below 6.0 may help reduce the tendency for calcium phosphate stones and pH greater than 6.0 may reduce the tendency for uric acid stone formation. Source: [facility] Current Interpretive Data was last revised on 2017 Protein, ur ql Negative Negative [facility] Glucose, ur ql Negative Negative [facility] Ketones, ur Negative Negative [facility] Bilirubin, ur Negative Negative [facility] Blood, ur Negative Negative [facility] Urobilinogen, ur 2.0(A) <2.0 mg/dL [facility] Nitrite, ur Negative Negative [facility] Leukocyte esterase, ur Negative Negative [facility] UA reflex comment Reflex conditions for microscopic UA and culture not met. [facility] Urine 03/20/2025 5:37 AM INTERIOR DESIGN PRINCIPAL 03/20/2025 5:41 AM INTERIOR DESIGN PRINCIPAL Lissa ROMERO LAB MICROBIOLOGY - GEN ERAL ORDERABLES Final Result [facility] [address] [facility] Department [place] [address] * (ABNORMAL) Drugs of Abuse Screen, Urine without Confirmation (03/20/2025 5:37 AM INTERIOR DESIGN PRINCIPAL) Amphetamine, ur Not Detected CutOff 500ng/mL Comment: Interpretive Data - Amphetamines: Samples containing greater than 500 ng/mL d-methamphetamine or other cross-reacting amphetamine compounds are reported as positive. Amphetamine immunoassays are subject to significant false positive rates due to cross-reactivity of non-amphetamine drugs. Confirmatory testing required for definitive results. Current Interpretive Data was last reviewed 2022. Barbiturates, ur Not Detected CutOff 200ng/mL [facility] Comment: Interpretive Data - Barbiturates: Samples containing greater than 200 ng/mL secobarbital or other cross-reacting barbiturate compounds are reported as positive. False positive and false negative results are possible. Confirmatory testing required for definitive results. Current Interpretive Data was last reviewed 2022. Benzodiazepines, ur Screen Positive, presumptive (A) CutOff 100ng/mL [facility] Comment: Interpretive Data - Benzodiazepines: Samples containing greater than 100 ng/mL nordiazepam or other cross-reacting compounds are reported as positive. False positive and false negative results are possible. Confirmatory testing required for definitive results. Current Interpretive Data was last reviewed 2022. Cannabinoids, ur Screen Positive, presumptive (A) CutOff 50 ng/mL [facility] Comment: Interpretive Data - Cannabinoids: Samples containing greater than 50 ng/mL delta-9 THC -COOH or other cross- reacting compounds are reported as positive. False positive and false negative results are possible. Confirmatory testing required for definitive results. Current Interpretive Data was last reviewed 2022. Cocaine, ur Not Detected CutOff 150ng/mL [facility] Comment: Interpretive Data - Cocaine: Samples containing greater than 150 ng/mL benzoylecgonine or other cross- reacting compounds are reported as positive. False positive and false negative results are possible. Confirmatory testing required for definitive results. Current Interpretive Data was last reviewed 2022. Fentanyl, Ur Not Detected CutOff 5 ng/mL [facility] Comment: Interpretive Data - Fentanyl: Samples containing greater than 5 ng/mL norfentanyl, fentanyl, or other cross-reacting fentanyl compounds are reported as positive. False positive and false negative results are possible. Confirmatory testing required for definitive results. Current Interpretive Data was last reviewed 2023. Methadone, ur Not Detected CutOff 300ng/mL [facility] Comment: Interpretive Data - Methadone: Samples containing greater than 300 ng/mL d,l-methadone or other cross-reacting compounds are reported as positive. False positive and false negative results are possible. Confirmatory testing required for definitive results. Current Interpretive Data was last reviewed 2022. Opiates, ur Not Detected CutOff 300ng/mL [facility] Comment: Interpretive Data - Opiates: Samples containing greater than 300 ng/mL morphine or other cross-reacting compounds are reported as positive. False positive and false negative results are possible. Confirmatory testing required for definitive results. Current Interpretive Data was last reviewed 2022. Oxycodone, ur Not Detected CutOff 100ng/mL [facility] Comment: Interpretive Data - Oxycodone: Samples containing greater than 100 ng/mL oxycodone or other cross-reacting compounds are reported as positive. False positive and false negative results are possible. Confirmatory testing required for definitive results. Current Interpretive Data was last reviewed 2022. Phencyclidine, ur Not Detected CutOff 25 ng/mL [facility] Comment: Interpretive Data - Phencyclidine: Samples containing greater than 25 ng/mL phencyclidine or other cross-reacting compounds are reported as positive. False positive and false negative results are possible. Confirmatory testing required for definitive results. Current Interpretive Data was last reviewed 2022. Urine Creatinine 92 mg/dL [facility] Comment: Interpretive Data Urine Creatinine: < 10 mg/dL is extremely dilute = or > 10 but < 20 mg/dL is dilute = or > 20 mg/dL is normal Current Interpretive Data was last revised on 2017. Urine 03/20/2025 5:37 AM INTERIOR DESIGN PRINCIPAL 03/20/2025 5:41 AM INTERIOR DESIGN PRINCIPAL Narrative [facility] - 03/20/2025 6:06 AM INTERIOR DESIGN PRINCIPAL Drug of Abuse screening is performed by immunoassay for medical purposes only. This is not to be used for Pain Management purposes. Lissa ROMERO LAB URINE ORDERABLES F inal Result Performing Organization Address [facility] de Phone Number [address] [employer] [place], [place] [id number] * Ethanol (03/20/2025 5:37 AM INTERIOR DESIGN PRINCIPAL) Ethanol <10 <=10 mg/dL Comment: Interpretive Data Legal limit of intoxication > or = 80 mg/dL Levels > or = 400 mg/dL are potentially TOXIC. Current interpretive data was last revised on 2018. Blood 03/20/2025 5:37 AM INTERIOR DESIGN PRINCIPAL 03/20/2025 5:41 AM INTERIOR DESIGN PRINCIPAL Lissa ROMERO LAB BLOOD ORDERABLES F inal Result Performing Organization Address [facility] Co de Phone Number [address] [place] [address] * Thyroid Function [place] (03/20/2025 5:37 AM INTERIOR DESIGN PRINCIPAL) TSH 0.92 0.30 - 4.20 mcIUnit/mL Blood 03/20/2025 5:37 AM INTERIOR DESIGN PRINCIPAL 03/20/2025 5:41 AM INTERIOR DESIGN PRINCIPAL Lissa ROMERO LAB BLOOD ORDERABLES F inal Result [facility] [address] [facility] Department [place] [address] * Comprehensive metabolic panel (03/20/2025 5:37 AM INTERIOR DESIGN PRINCIPAL) Pathologist [facility] Sodium 140 135 - 145 mmol/L Potassium, pl 4.0 3.3 - 4.9 mmol/L [facility] Chloride 103 97 - 110 mmol/L [facility] CO2 27 22 - 32 mmol/L [facility] Anion gap 10 2 - 15 mmol/L [facility] BUN 14 6 - 25 mg/dL [facility] Creatinine 0.90 0.80 - 1.30 mg/dL [facility] Glucose 105 70 - 199 mg/dL [facility] Comment: Interpretive Data Fasting glucose >/= 126 [...] interpretive data was last revised 2022. Calcium 8.9 8.5 - 10.3 mg/dL [facility] Bilirubin, total 0.3 0.1 - 1.2 mg/dL [facility] Protein, pl 6.7 6.5 - 8.5 g/dL [facility] Albumin 4.2 3.5 - 5.0 g/dL [facility] Alk phos 68 40 - 130 Units/L [facility] ALT 15 7 - 55 Units/L [facility] AST 25 10 - 50 Units/L [facility] Blood 03/20/2025 5:37 AM INTERIOR DESIGN PRINCIPAL 03/20/2025 5:41 AM INTERIOR DESIGN PRINCIPAL Lissa ROMERO LAB BLOOD ORDERABLES F inal Result Performing Organization Address [facility] Co de Phone Number [facility] [address] [facility] [place] [address] * (ABNORMAL) CBC with auto differential (03/20/2025 5:37 AM INTERIOR DESIGN PRINCIPAL) WBC 8.33 3.80 - 9.90 K/cumm Hgb 12.9(L) 13.0 - 17.5 g/dL [facility] Hct 38.1(L) 38.9 - 50.3 % [facility] Plt 226 150 - 400 K/cumm [facility] MPV 10.8 9.1 - 12.3 fL [facility] RBC 4.39 4.30 - 5.80 M/cumm [facility] MCV 86.8 81.3 - 96.4 fL [facility] MCH 29.4 27.1 - 33.3 pg [facility] MCHC 33.9 32.3 - 35.7 g/dL [facility] RDW CV 13.0 11.1 - 14.9 % [facility] RDW SD 41.0 35.7 - 48.1 fL [facility] NRBC abs 0.00 0.00 - 0.01 K/cumm [facility] Blood Venous blood specimen / Unknown 03/20/2025 5:37 AM INTERIOR DESIGN PRINCIPAL 03/20/2025 5:41 AM INTERIOR DESIGN PRINCIPAL Lissa ROMERO LAB BLOOD ORDERABLES F inal Result Performing Organization Address City/[facility]/ZIP Co de Phone Number [facility] [address] [place] [address] documented in this encounter Visit Diagnoses Diagnosis Acute left-sided low back pain without sciatica- Primary Left arm pain Pain in soft tissues of limb documented in this encounter 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
--- OUTSIDE RECORDS SUMMARY | 2025-03-20 13:27 | XMS_ITS | Clinical Summary ---
Author Organization [facility] Address [address] [place] [address] Care Team Providers Care Financial Accounting Analyst Name Role Phone No, Physician Primary Care Provider [phone] Allergies No known active allergies Medications docusate [...] times a day as needed for anxiety 12/03/2 025 Discontinued buprenorphine- naloxone (SUBOXONE) 8-2 mg [address] tablet Place 1 tablet under the tongue 4 (four) times a day 025 Discontinued Active Problems Problem Noted Date Diagnosed Date Alcohol use disorder 02/21/2025 Assessment & Plan (02/21/2025 3:32 PM MEDICAL LAB TECHNICIAN): -CIWA -Electrolytes unremarkable on presentation -Warm and of consult will use Valium instead of IV Ativan Substance use disorder 02/21/2025 Assessment & Plan (02/21/2025 3:32 PM MEDICAL LAB TECHNICIAN): History of opioid use disorder -Continue Suboxone -UDS with benzos and cannabis Encounters Date Type Department Care Team Description 03/20/2025 5:07 AM MEDICAL LAB TECHNICIAN - 03/20/2025 7:[address] [address] Acute left-sided low back pain without sciatica (Primary Dx); Left arm pain Discharge Disposition: Discharge to home or self care 03/20/2025 4:06 AM MEDICAL LAB TECHNICIAN - 03/20/2025 4:[address] [address] Discharge Disposition: Left without being seen 03/20/2025 2:57 AM MEDICAL LAB TECHNICIAN - 03/20/2025 3:[address] [address] Discharge Disposition: Left without being seen 03/08/2025 11:18 PM MEDICAL LAB TECHNICIAN - 03/08/2025 11:59 PM MEDICAL LAB TECHNICIAN Hospital Encounter [facility] Emergency, Room R Discharge Disposition: Discharge to home or self care 02/23/2025 Documentation [facility] [address] [place], [place] [phone] Bree Ca 02/22/2025 AMH Enrollment [facility] [address] [place], [place] [phone] Mark Wood RRT 02/21/2025 1:25 PM MEDICAL LAB TECHNICIAN - 02/23/2025 8:15 AM MEDICAL LAB TECHNICIAN Hospital Encounter [facility] 1 [place] [address] Sandeep Garcia MD Shaba, Winnie, MD Alcohol use disorder (Primary Dx); Substance use disorder Discharge Disposition: Discharge to an IP Rehab facility 02/21/2025 Documentation [facility] 1 [place] [phone] AshtonChelsea jacquesBhumika 02/21/2025 Documentation [facility] [address] [place] [phone] Bree Ca from Last 3 Months Social History Tobacco Use Types Packs/Day Years Used Date Smoking Tobacco: Every Day E-cigarettes Smokeless Tobacco: Never Tobacco Cessation:Ready to Q uit: Not Asked; Counseling Given: Not Answered Alcohol Use Standard Drinks/Week Comments Yes 0 [...] week 02/22/2025 How often do you attend worship or bahai serv ices? Never 02/22/2025 Do you belong to any clubs o r organizations such as worship groups, unions, fraternal or athletic groups, or [...] any time in the past [address] [facility], were you homeless or living in a prison (including now)? Yes 02/22/2025 [facility] Utilities Answer Date Recorded In the past [...] Sign Reading Time Taken Comments Blood Pressure 136/80 03/20/2025 7:28 AM MEDICAL LAB TECHNICIAN Pulse 80 03/20/2025 7:28 AM MEDICAL LAB TECHNICIAN Temperature 36.4 C (97.5 F) 03/20/2025 4:57 AM MEDICAL LAB TECHNICIAN Respiratory Rate 16 03/20/2025 7:28 AM MEDICAL LAB TECHNICIAN Oxygen Saturation 99% 03/20/2025 7:28 AM MEDICAL LAB TECHNICIAN Inhaled Oxygen Concentration - - Weight 94.3 kg (208 lb) 03/20/2025 3:18 AM MEDICAL LAB TECHNICIAN Height 175.3 cm (5' 9) 02/21/2025 8:30 PM MEDICAL LAB TECHNICIAN Body Mass Index 30.72 02/21/2025 8:30 PM MEDICAL LAB TECHNICIAN Plan of Treatment Health Maintenance Due Date [...] Procedure Name Priority Date/Time Associated Diagnosis Comments EGFR STAT 03/20/2025 5:37 AM MEDICAL LAB TECHNICIAN DIFFERENTIAL AUTO STAT 03/20/2025 5:3 7 AM MEDICAL LAB TECHNICIAN SALICYLATE LEVEL STAT 03/20/2025 5:37 AM MEDICAL LAB TECHNICIAN ACETAMINOPHEN LEVEL STAT 03/20/2025 5 :37 AM MEDICAL LAB TECHNICIAN DRUGS OF ABUSE SCREEN, URINE WITHOUT CONFIRMATION STAT 03/20/2025 5:37 AM MEDICAL LAB TECHNICIAN ETHANOL STAT 03/20/2025 5:37 AM MEDICAL LAB TECHNICIAN THYROID FUNCTION CASCADE STAT 03/20/2025 5:37 AM MEDICAL LAB TECHNICIAN COMPREHENSIVE METABOLIC PANEL STAT 03/20/2025 5:37 AM MEDICAL LAB TECHNICIAN CBC WITH AUTO DIFFERENTIAL STAT 03/20/2025 5:37 AM MEDICAL LAB TECHNICIAN COVID-19 CORONAVIRUS RNA STAT 03/20/2025 5:37 AM MEDICAL LAB TECHNICIAN URINALYSIS AND REFLEX TO MICROSCOPIC AND CULTURE STAT 03/20/2025 5:37 AM MEDICAL LAB TECHNICIAN DRUGS OF ABUSE SCREEN, URINE WITHOUT CONFIRMATION STAT 02/21/2025 12:23 PM MEDICAL LAB TECHNICIAN EGFR STAT 02/21/2025 11:30 AM MEDICAL LAB TECHNICIAN DIFFERENTIAL AUTO STAT 02/21/2025 11: 30 AM MEDICAL LAB TECHNICIAN SALICYLATE LEVEL STAT 02/21/2025 11:3 0 AM MEDICAL LAB TECHNICIAN ETHANOL STAT 02/21/2025 11:30 AM MEDICAL LAB TECHNICIAN ACETAMINOPHEN LEVEL STAT 02/21/2025 1 1:30 AM MEDICAL LAB TECHNICIAN COMPREHENSIVE METABOLIC PANEL STAT 02/21/2025 11:30 AM MEDICAL LAB TECHNICIAN CBC WITH AUTO DIFFERENTIAL STAT 02/21/2025 11:30 AM MEDICAL LAB TECHNICIAN from Last 3 Months Results * COVID-19 Coronavirus RNA Nasopharyngeal (03/20/2025 5:37 AM MEDICAL LAB TECHNICIAN) COVID-19 RNA Negative Negative Nasopharyngeal 03/20/2025 5: 37 AM MEDICAL LAB TECHNICIAN 03/20/2025 5:41 AM MEDICAL LAB TECHNICIAN Jaiden CUMMINGS - 03/20/2025 7:17 AM MEDICAL LAB TECHNICIAN Is the patient experiencing any symptoms consistent with COVID (eg. Fever, cough, shortness of breath)?->No What is the reason for testing?->Screening prior to Behavioral health admission Interpretive data Testing performed by [facility]. This test is performed using the Pinger Xpert Xpress CoV-2 plus assay. This is a real-time RT-PCR test intended for the qualitative detection of nucleic acid from the SARS-CoV-2. This assay has been cleared by the [place] Food and Drug administration. The performance characteristics have been verified by the [facility]. Results must be considered in the clinical context, and a negative result does not rule out infection. Interpretive data last revised 2023. Interpretive data Testing performed by [facility]. This test is performed using the Pinger Xpert Xpress CoV-2 plus assay. This is a real-time RT-PCR test intended for the qualitative detection of nucleic acid from the SARS-CoV-2. This assay has been cleared by the [place] Food and Drug administration. The performance characteristics have been verified by the [facility]. Results must be considered in the clinical context, and a negative result does not rule out infection. Interpretive data last revised 2023. Lissa ROMERO LAB MICROBIOLOGY - GEN ERAL ORDERABLES Final Result Performing Organization Address [facility]/ZIP Co de Phone Number ZOILA [address] [place] [address] * eGFR (03/20/2025 5:37 AM MEDICAL LAB TECHNICIAN) [facility] eGFR >90 >=60 mL/min/1. 73 m2 Comment: [...] last reviewed 2021. Blood 03/20/2025 5:37 AM MEDICAL LAB TECHNICIAN 03/20/2025 5:41 AM MEDICAL LAB TECHNICIAN Lissa ROMERO LAB BLOOD ORDERABLES F inal Result Performing Organization Address City/[facility]/ZIP Co de Phone Number ZOILA [address] [place] [address] * Differential, auto (03/20/2025 5:37 AM MEDICAL LAB TECHNICIAN) Pathologist [facility] Neutrophil abs 4.68 1.50 - 6.50 K/cumm Imm gran abs 0.02 0.00 - 0.10 K/cumm [facility] Lymphocyte abs 2.68 0.80 - 3.30 K/cumm [facility] Monocyte abs 0.53 0.20 - 0.80 K/cumm [facility] Eosinophil abs 0.39 0.00 - 0.50 K/cumm [facility] Basophil abs 0.03 0.00 - 0.10 K/cumm [facility] Neutrophil pct 56.1 % [facility] Comment: Interpretive Data Percent cell count reference ranges are not reported, since discordance with absolute values may lead to misinterpretation of CBC data. Current Interpretive Data was last revised on 2017. Imm gran pct 0.2 % [facility] Comment: Interpretive Data Percent cell count reference ranges are not reported, since discordance with absolute values may lead to misinterpretation of CBC data. Current Interpretive Data was last revised on 2017. Lymphocyte pct 32.2 % [facility] Comment: Interpretive Data Percent cell count reference ranges are not reported, since discordance with absolute values may lead to misinterpretation of CBC data. Current Interpretive Data was last revised on 2017. Monocyte pct 6.4 % [facility] Comment: Interpretive Data Percent cell count reference ranges are not reported, since discordance with absolute values may lead to misinterpretation of CBC data. Current Interpretive Data was last revised on 2017. Eosinophil pct 4.7 % [facility] Comment: Interpretive Data Percent cell count reference ranges are not reported, since discordance with absolute values may lead to misinterpretation of CBC data. Current Interpretive Data was last revised on 2017. Basophil pct 0.4 % [facility] Comment: Interpretive Data Percent cell count reference ranges are not reported, since discordance with absolute values may lead to misinterpretation of CBC data. Current Interpretive Data was last revised on 2017. Blood 03/20/2025 5:37 AM MEDICAL LAB TECHNICIAN 03/20/2025 5:41 AM MEDICAL LAB TECHNICIAN us Lissa ROMERO LAB BLOOD ORDERABLES F inal Result [facility] [address] [facility] Department [place] [address] * Thyroid Function [place] (03/20/2025 5:37 AM MEDICAL LAB TECHNICIAN) TSH 0.92 0.30 - 4.20 mcIUnit/mL Blood 03/20/2025 5:37 AM MEDICAL LAB TECHNICIAN 03/20/2025 5:41 AM MEDICAL LAB TECHNICIAN Lissa ROMERO LAB BLOOD ORDERABLES F inal Result Performing Organization Address [facility] Co de Phone Number ZOILA FISCHER [address] [place] [address] * (ABNORMAL) Urinalysis reflex to microscopic and culture Urine (03/20/2025 5:37 AM MEDICAL LAB TECHNICIAN) Color, ur Yellow Yellow Clarity, ur Clear Clear [facility] Specific gravity, ur 1.019 1.003 - 1.030 [facility] pH, urine 7.5 [facility] Comment: Interpretive Data U rine pH is affected by diet, medications, systemic acid-base disturbances, and renal tubular function. pH may affect urinary stone formation. For example, urine pH below 6.0 may help reduce the tendency for calcium phosphate stones and pH greater than 6.0 may reduce the tendency for uric acid stone formation. Source: [facility] Current Interpretive Data was last revised on 2017 Protein, ur ql Negative Negative [facility] Glucose, ur ql Negative Negative [facility] Ketones, ur Negative Negative [facility] Bilirubin, ur Negative Negative [facility] Blood, ur Negative Negative [facility] Urobilinogen, ur 2.0(A) <2.0 mg/dL [facility] Nitrite, ur Negative Negative [facility] Leukocyte esterase, ur Negative Negative [facility] UA reflex comment Reflex conditions for microscopic UA and culture not met. [facility] Urine 03/20/2025 5:37 AM MEDICAL LAB TECHNICIAN 03/20/2025 5:41 AM MEDICAL LAB TECHNICIAN Lissa ROMEOR LAB MICROBIOLOGY - GEN ERAL ORDERABLES Final Result Performing Organization Address City/[facility]/ZIP Co de Phone Number ZOILA [address] [place] [address] * (ABNORMAL) CBC with auto differential (03/20/2025 5:37 AM MEDICAL LAB TECHNICIAN) WBC 8.33 3.80 - 9.90 K/cumm Hgb 12.9(L) 13.0 - 17.5 g/dL [facility] Hct 38.1(L) 38.9 - 50.3 % [facility] Plt 226 150 - 400 K/cumm [facility] MPV 10.8 9.1 - 12.3 fL [facility] RBC 4.39 4.30 - 5.80 M/cumm [facility] MCV 86.8 81.3 - 96.4 fL [facility] MCH 29.4 27.1 - 33.3 pg [facility] MCHC 33.9 32.3 - 35.7 g/dL [facility] RDW CV 13.0 11.1 - 14.9 % [facility] RDW SD 41.0 35.7 - 48.1 fL [facility] NRBC abs 0.00 0.00 - 0.01 K/cumm [facility] Blood Venous blood specimen / Unknown 03/20/2025 5:37 AM MEDICAL LAB TECHNICIAN 03/20/2025 5:41 AM MEDICAL LAB TECHNICIAN Lissa ROMERO LAB BLOOD ORDERABLES F inal Result [facility] [address] [facility] Department [place] [address] * (ABNORMAL) Drugs of Abuse Screen, Urine without Confirmation (03/20/2025 5:37 AM MEDICAL LAB TECHNICIAN) Pathologist [facility] Amphetamine, ur Not Detected CutOff 500ng/mL Comment: Interpretive Data - Amphetamines: Samples containing greater than 500 ng/mL d-methamphetamine or other cross-reacting amphetamine compounds are reported as positive. Amphetamine immunoassays are subject to significant false positive rates due to cross-reactivity of non-amphetamine drugs. Confirmatory testing required for definitive results. Current Interpretive Data was last reviewed 2022. Barbiturates, ur Not Detected CutOff 200ng/mL [facility] Comment: Interpretive Data - Barbiturates: Samples containing greater than 200 ng/mL secobarbital or other cross-reacting barbiturate compounds are reported as positive. False positive and false negative results are possible. Confirmatory testing required for definitive results. Current Interpretive Data was last reviewed 2022. Benzodiazepines, ur Screen Positive, presumptive (A) CutOff 100ng/mL [facility] Comment: Interpretive Data - Benzodiazepines: Samples containing greater than 100 ng/mL nordiazepam or other cross-reacting compounds are reported as positive. False positive and false negative results are possible. Confirmatory testing required for definitive results. Current Interpretive Data was last reviewed 2022. Cannabinoids, ur Screen Positive, presumptive (A) CutOff 50 ng/mL [facility] Comment: Interpretive Data - Cannabinoids: Samples containing greater than 50 ng/mL delta-9 THC -COOH or other cross- reacting compounds are reported as positive. False positive and false negative results are possible. Confirmatory testing required for definitive results. Current Interpretive Data was last reviewed 2022. Cocaine, ur Not Detected CutOff 150ng/mL [facility] Comment: Interpretive Data - Cocaine: Samples containing greater than 150 ng/mL benzoylecgonine or other cross- reacting compounds are reported as positive. False positive and false negative results are possible. Confirmatory testing required for definitive results. Current Interpretive Data was last reviewed 2022. Fentanyl, Ur Not Detected CutOff 5 ng/mL [facility] Comment: Interpretive Data - Fentanyl: Samples containing greater than 5 ng/mL norfentanyl, fentanyl, or other cross-reacting fentanyl compounds are reported as positive. False positive and false negative results are possible. Confirmatory testing required for definitive results. Current Interpretive Data was last reviewed 2023. Methadone, ur Not Detected CutOff 300ng/mL [facility] Comment: Interpretive Data - Methadone: Samples containing greater than 300 ng/mL d,l-methadone or other cross-reacting compounds are reported as positive. False positive and false negative results are possible. Confirmatory testing required for definitive results. Current Interpretive Data was last reviewed 2022. Opiates, ur Not Detected CutOff 300ng/mL [facility] Comment: Interpretive Data - Opiates: Samples containing greater than 300 ng/mL morphine or other cross-reacting compounds are reported as positive. False positive and false negative results are possible. Confirmatory testing required for definitive results. Current Interpretive Data was last reviewed 2022. Oxycodone, ur Not Detected CutOff 100ng/mL [facility] Comment: Interpretive Data - Oxycodone: Samples containing [...] revised on 2017. Urine 03/20/2025 5:37 AM MEDICAL LAB TECHNICIAN 03/20/2025 5:41 AM MEDICAL LAB TECHNICIAN Narrative ZOILA - 03/20/2025 6:06 AM MEDICAL LAB TECHNICIAN Drug of Abuse screening is performed by immunoassay for medical purposes only. This is not to be used for Pain Management purposes. Lissa ROMERO LAB URINE ORDERABLES F inal Result Performing Organization Address [facility] Co de Phone Number [place] [address] [facility] [place] [address] * Ethanol (03/20/2025 5:37 AM MEDICAL LAB TECHNICIAN) Ethanol <10 <=10 mg/dL Comment: Interpretive Data Legal limit of intoxication > or = 80 mg/dL Levels > or = 400 mg/dL are potentially TOXIC. Current interpretive data was last revised on 2018. Blood 03/20/2025 5:37 AM MEDICAL LAB TECHNICIAN 03/20/2025 5:41 AM MEDICAL LAB TECHNICIAN Lissa ROMERO LAB BLOOD ORDERABLES F inal Result Performing Organization Address City/[facility] Co de Phone Number [address] [place] [address] * Acetaminophen level (03/20/2025 5:37 AM MEDICAL LAB TECHNICIAN) Acetaminophen <5 <=5 mcg/mL Comment: Interpretive Data Significant hepatic injury may occur and treatment with n-acetyl cysteine is generally recommended if the acetaminophen level exceeds: 150 mcg/mL at 4 hours after ingestion 75 mcg/mL at 8 hours after ingestion 38 mcg/mL at 12 hours after ingestion 19 mcg/mL at 16 hours after ingestion Consult toxicology or poison control ([phone]) for unknown ingestion time. Current interpretive data was last revised 2022. Blood 03/20/2025 5:37 AM MEDICAL LAB TECHNICIAN 03/20/2025 5:41 AM MEDICAL LAB TECHNICIAN Lissa ROMERO LAB BLOOD ORDERABLES F inal Result Performing Organization Address [facility] Co de Phone Number [address] [place] [address] * Salicylate level (03/20/2025 5:37 AM MEDICAL LAB TECHNICIAN) [facility] Salicylate <1.0 <=1.0 mg/dL Comment: Interpretive Data Toxic: 30 mg/dL or greater. Current interpretive data was last revised 2022. Blood 03/20/2025 5:37 AM MEDICAL LAB TECHNICIAN 03/20/2025 5:41 AM MEDICAL LAB TECHNICIAN Lissa ROMERO LAB BLOOD ORDERABLES F inal Result Performing Organization Address [facility] Co de Phone Number [address] [place] [address] * Comprehensive metabolic panel (03/20/2025 5:37 AM MEDICAL LAB TECHNICIAN) Pathologist [facility] Sodium 140 135 - 145 mmol/L Potassium, pl 4.0 3.3 - 4.9 mmol/L [facility] Chloride 103 97 - 110 mmol/L [facility] CO2 27 22 - 32 mmol/L [facility] Anion gap 10 2 - 15 mmol/L [facility] BUN 14 6 - 25 mg/dL [facility] Creatinine 0.90 0.80 - 1.30 mg/dL [facility] Glucose 105 70 - 199 mg/dL [facility] Comment: Interpretive Data Fasting glucose >/= 126 [...] 2022. Calcium 8.9 8.5 - 10.3 mg/dL [facility] Bilirubin, total 0.3 0.1 - 1.2 mg/dL [facility] Protein, pl 6.7 6.5 - 8.5 g/dL [facility] Albumin 4.2 3.5 - 5.0 g/dL [facility] Alk phos 68 40 - 130 Units/L [facility] ALT 15 7 - 55 Units/L [facility] AST 25 10 - 50 Units/L [facility] Blood 03/20/2025 5:37 AM MEDICAL LAB TECHNICIAN 03/20/2025 5:41 AM MEDICAL LAB TECHNICIAN Lissa ROMERO LAB BLOOD ORDERABLES F inal Result [facility] [address] [facility] Department [place] [address] * (ABNORMAL) Drugs of Abuse Screen, Urine without Confirmation (02/21/2025 12:23 PM MEDICAL LAB TECHNICIAN) Pathologist [facility] Amphetamine, ur Not Detected CutOff 500ng/mL Comment: Interpretive Data - Amphetamines: Samples containing greater than 500 ng/mL d-methamphetamine or other cross-reacting amphetamine compounds are reported as positive. Amphetamine immunoassays are subject to significant false positive rates due to cross-reactivity of non-amphetamine drugs. Confirmatory testing required for definitive results. Current Interpretive Data was last reviewed 2022. Barbiturates, ur Not Detected CutOff 200ng/mL [facility] ([place]) Comment: Interpretive Data - Barbiturates: Samples [...] 2022. Oxycodone, ur NOT DETECTED CutOff 100ng/mL ZOILA QU[facility]TANA ([place]) Comment: Interpretive Data - Oxycodone: Samples containing greater than 100 ng/mL oxycodone or other cross-reacting compounds are reported as positive. False positive and false negative results are possible. Confirmatory testing required for definitive results. Current Interpretive Data was last reviewed 2022. Phencyclidine, ur Not Detected CutOff 25 ng/mL ZOILA [facility] ([place]) Comment: Interpretive Data - Phencyclidine: Samples containing greater than 25 ng/mL phencyclidine or other cross-reacting compounds are reported as positive. False positive and false negative results are possible. Confirmatory testing required for definitive results. Current Interpretive Data was last reviewed 2022. Urine Creatinine 15 mg/dL MELISSA [facility] ([place]) Comment: Interpretive Data Urine Creatinine: < 10 mg/dL is extremely dilute = or > 10 but < 20 mg/dL is dilute = or > 20 mg/dL is normal Current Interpretive Data was last revised on 2017. Urine 02/21/2025 12:2 3 PM MEDICAL LAB TECHNICIAN 02/21/2025 12:25 PM MEDICAL LAB TECHNICIAN Narrative ZOILA [facility] ([place]) - 02/21/2025 1:10 PM MEDICAL LAB TECHNICIAN Drug of Abuse screening is performed by immunoassay for medical purposes only. This is not to be used for Pain Management purposes. Malick ROMERO LAB URINE ORDERABLES Final R esult ZOILA [facility]TANA ([place]) [address] [facility] [place] [address] * eGFR (02/21/2025 11:30 AM MEDICAL LAB TECHNICIAN) eGFR >90 >=60 mL/min/1. 73 m2 Comment: [...] reviewed 2021. Blood 02/21/2025 11:3 0 AM MEDICAL LAB TECHNICIAN 02/21/2025 11:34 AM MEDICAL LAB TECHNICIAN us Malick ROMERO LAB BLOOD ORDERABLES Final R esult ZOILA [facility] [address] [facility] [place] [address] * Differential, auto (02/21/2025 11:30 AM MEDICAL LAB TECHNICIAN) Neutrophil abs 4.56 1.50 - 6.50 K/cumm [...] on 2017. Blood 02/21/2025 11:3 0 AM MEDICAL LAB TECHNICIAN 02/21/2025 11:34 AM MEDICAL LAB TECHNICIAN us Malick ROMERO LAB BLOOD ORDERABLES Final R esult ZOILA [facility] ([place]) [address] [facility] [place] [address] * (ABNORMAL) CBC with auto differential (02/21/2025 11:30 AM MEDICAL LAB TECHNICIAN) WBC 7.98 3.80 - 9.90 K/cumm Hgb [...] (GRETCHEN) MCH 29.0 27.1 - 33.3 pg ZOILA QUINTANA (GRETCHEN) MCHC 33.8 32.3 - 35.7 g/dL ZOILA QUINTANA ([place]RET[place]) RDW CV 12.6 11.1 - 14.9 % ZOILA QUINTANA (GRET[place]) RDW SD 39.4 35.7 - 48.1 fL ZOILA QUINTANA (GRETCHEN) NRBC abs 0.02(H) 0.00 - 0.01 K/cumm ZOILA QUINTANA (GRETCHEN) Blood 02/21/2025 11:3 0 AM MEDICAL LAB TECHNICIAN 02/21/2025 11:34 AM MEDICAL LAB TECHNICIAN Malick ROMERO LAB BLOOD ORDERABLES Final R esult Performing Organization Address City/[facility] Co de Phone Number ZOILA ShawNORRIS) [address] [facility] [place] [address] * Ethanol (02/21/2025 11:30 AM MEDICAL LAB TECHNICIAN) Ethanol <10 <=10 mg/dL Comment: Interpretive Data Legal limit of intoxication > or = 80 mg/dL Levels > or = 400 mg/dL are potentially TOXIC. Current interpretive data was last revised on 2018. Blood 02/21/2025 11:3 0 AM MEDICAL LAB TECHNICIAN 02/21/2025 11:34 AM MEDICAL LAB TECHNICIAN Malick ROMERO LAB BLOOD ORDERABLES Final R esult Performing Organization Address City/[facility]/ZIP Co de Phone Number ZOILA QUINTANA (NORRIS) [address] [facility] [place] [address] * Acetaminophen level (02/21/2025 11:30 AM MEDICAL LAB TECHNICIAN) Acetaminophen <5 <=5 mcg/mL Comment: Markedly elevated [...] after ingestion Consult toxicology or poison control ([phone]) for unknown ingestion time. Current interpretive data was last revised 2022. Blood 02/21/2025 11:3 0 AM MEDICAL LAB TECHNICIAN 02/21/2025 11:34 AM MEDICAL LAB TECHNICIAN Malick ROMERO LAB BLOOD ORDERABLES Final R esult Performing Organization Address [facility] Co de Phone Number ZOILA QUINTANA (NORRIS) [address] [facility] [place] [address] * Salicylate level (02/21/2025 11:30 AM MEDICAL LAB TECHNICIAN) Salicylate <5.0 <=5.0 mg/dL Comment: Interpretive Data Toxic: 30 mg/dL or greater. Current interpretive data was last revised 2022. Blood 02/21/2025 11:3 0 AM MEDICAL LAB TECHNICIAN 02/21/2025 11:34 AM MEDICAL LAB TECHNICIAN Malick ROMERO LAB BLOOD ORDERABLES Final R [facility] Performing Organization Address [facility] Co de Phone Number ZOILA QUINTANA (GRETCHEN) [address] [facility] [place] [address] * Comprehensive metabolic panel (02/21/2025 11:30 AM MEDICAL LAB TECHNICIAN) Sodium 139 135 - 145 mmol/L Potassium, pl 3.9 3.3 - 4.9 mmol/L [facility] ([facility] Chloride 99 97 - 110 mmol/L [facility] ([place]) CO2 31 22 - 32 mmol/L [facility] ([place]) Anion gap 9 2 - 15 mmol/L [facility] ([place]) BUN 11 6 - 25 mg/dL [facility] ([facility]) Creatinine 0.86 0.80 - 1.30 [...] [facility] ([facility]) Blood 02/21/2025 11:3 0 AM MEDICAL LAB TECHNICIAN 02/21/2025 11:34 AM MEDICAL LAB TECHNICIAN us Malick ROMERO LAB BLOOD ORDERABLES Final R esult [facility] ([place]) [address] [facility] [place] [address] from Last 3 Months Insurance [employer] [facility] PL[facility] Advance Directives For more information, please contact: [phone] * Full Code (Latest Code Status on File) Date Activated Date Inactivated Comments 02/21/2025 4:08 PM 02/23/2025 12:20 PM Care Teams Financial Accounting Analyst Relationship Specialty Start Date End Date No, Physician PCP - General 10/27/24
[2025-03-20 13:39] VITALS: BP 133/79; PULSE 81; RESP 18; TEMP 36.4; O2SAT 97
--- NOTE | 2025-03-20 14:26 | ED.GENADULT ---
HPI - General Adult General Chief complaint: Recheck/Abnormal Lab/Rx Stated complaint: out of benzos Time Seen by Provider: 03/20/25 13:49 History of Present Illness HPI narrative: [age] old male presenting emergency department for evaluation for a refill on his clonazepam. Patient does have follow-up scheduled with psychiatrist at [place] on the 01 of April or with [facility] on the 07 of April. Patient had been on clonazepam for multiple years but stopped. Patient is attempting to wean himself off of his Suboxone. Patient had decreased his dosing Suboxone from 4 times a day to 1 time a day. Patient was in the clonazepam came to help wean himself off of the Suboxone. Patient has had multiple scripts filled for these over the last few days. Related Data Allergies Allergy/AdvReac Type Severity Reaction Status Date / Time No Known Allergies Allergy Verified 03/20/25 13:36 Review of Systems Review of Systems: All systems reviewed & are unremarkable except as noted in HPI and below Course Vital Signs Vital signs: Vital Signs Temperature 97.6 F 03/20/25 13:39 Pulse Rate 81 03/20/25 13:39 Respiratory Rate 18 03/20/25 13:39 Blood Pressure 133/79 03/20/25 13:39 Pulse Oximetry 97 03/20/25 13:39 Temperature 97.6 F 03/20/25 13:39 Pulse Rate 81 03/20/25 13:39 Respiratory Rate 18 03/20/25 13:39 Blood Pressure 133/79 03/20/25 13:39 Pulse Oximetry 97 03/20/25 13:39 [facility] Narrative Medical decision making narrative: [age] old male presents to the emergency department for evaluation for a refill on his clonazepam. Patient's attempting to have an of clonazepam to make until he has follow-up with Psychiatry. Patient was weaning himself aggressively from his Suboxone he was advised to slow his Suboxone wean in order to make his clonazepam last the next 14 days. Differential Diagnosis Differential Diagnosis: Drug-seeking, anxiety, depression Discharge Plan Discharge Clinical Impression: Encounter for medication refill Patient Disposition: Home Condition: Stable Instructions: Antibiotic Form Additional Instructions: Slow the Suboxone wean. Continue have close follow-up with your psychiatrist for better long-term treatment of your anxiety. Patient Language: Azeri Prescriptions: New clonazepam [Klonopin] 1 mg tablet 1 mg PO BID 7 Days Qty: 14 0RF No Action clonazepam [Klonopin] 1 mg tablet 1 mg PO BID 7 Days Qty: 14 0RF Follow-up/Referrals: Reuben,Rojas Viera APRN [Primary Care Provider, Unknown]
== END 2025-03-20 14:40 | disposition home or self-care (01) ==
PROVIDERS: Emergency Provider Emergency Medicine; PCP Registered Nurse
DX: Z76.0 Encounter for issue of repeat prescription (principal)
CPT/HCPCS: 99281

== ENCOUNTER 2025-03-23 09:20 | Emergency (ER) | payer BC, SELFPAY ==
--- OUTSIDE RECORDS SUMMARY | 2025-01-27 08:20 | XMS_ITS ---
Author Organization [facility] Address [address] [place] [address] Phone [phone] Care Team Providers Care Bronc Buster Name Role Phone Rojas Alexis Primary Care Provider [phone] Melania Nayak APRN [phone] REASON FOR VISIT MAT F/U Social History Sex Observation Social History Observation Description Sex Observation Male Encounters Date Time Type Facility Location Provider Diagnosis 01/27/2025 08:20 AM Office Visit [facility]ending [facility] [address] [place] [address] Melania Nayak Plan Of Treatment Next Appt Details Provider Name:Sudhir haynes, 03/29/2025 08:20:00 AM, [address], [place], [address], Medical (General) History Medical History History ICD Code chronic anxiety depression Opioid use disorder Generalized anxiety disorder Insomnia Constipation Alcohol use disorder Surgical History Surgery Date(Month/Year) Hospitalization History Reason Date(Month/Year) Alcohol detox, [facility], 1 Touchette 10/2024 Progress Notes * Kwasi MCCABEDOB:1990 (34 yo M)Acc No.[id number]:01/27/2025 UNLOCKED PROGRESS NOTE Patient: Kwasi EARLY Provider: Panda Nayak, MSN, KNITTER WIRE MESH, BULK SEALER-C :1990 A ge:34 Y S ex:Male Date:01/27/2025 Phone: Address:[address] [place], [place] [phone] Pcp:Rojas Alexis Subjective: * Chief Complaints: * 1 . MAT F/U. * Screening: * * Medical History: Objective: * Vitals: Assessment: Plan: * Treatment: * Care Plan Details* * Electronic signature of Julienne Nayak APRN, [id number] on 03/23/2025 at 09:24 AM EVENTS SOLUTIONS CONSULTANT Sign off status: Pending * Provider: Panda Nayak, MSN, DAVIAN, BULK SEALER-C Date: 03/29/2024 Generated for Marlo feldman/Farzana/Michael on: 09:24 AM EVENTS SOLUTIONS CONSULTANT
--- OUTSIDE RECORDS SUMMARY | 2025-03-08 14:55 | XMS_ITS ---
Author Organization [facility] Address [address] [place] [address] Phone [phone] Care Team Providers Care Conveyor System Dispatcher Name Role Phone Rojas Alexis Primary Care Provider [phone] REASON FOR VISIT hosp need f/u psyche 04/01 Social History Sex Observation Social History Observation Description Sex Observation Male Encounters Date Time Type Facility Location Provider Diagnosis 03/08/2025 02:55 PM Telephone Encounter [facility] [address] [place] [address] Rojas Alexis Plan Of Treatment Next Appt Details Provider Name:Sudhir haynes, 03/29/2025 08:20:00 AM, [address], [place], [address], Medical (General) History Medical History History ICD Code chronic anxiety depression Opioid use disorder Generalized anxiety disorder Insomnia Constipation Alcohol use disorder Surgical History Surgery Date(Month/Year) Hospitalization History Reason Date(Month/Year) Alcohol detox, [facility], 2025-02-0 1 Touchette 10/2024 Progress Notes * Kwasi MCCABEDOB:1990 (34 yo M)Acc No.[id number]:03/08/2025 UNLOCKED PROGRESS NOTE Patient: Kwasi EARLY :1990 A ge:34 Y S ex:Male Phone: Address:[address] [place] [address], [address] Subjective: * Chief Complaints: * H osp [...] for the Visit: . hospital stay at [facility]. Visit Type and Location: . , [...] . . E R/Hospital F/U appointment with [facility]: C [facility] f/u appointment date: 05/10/2024with Anni. A ppointment Kept? D id the patient keep the appointment with [facility]? .. N gil completing documentation [facility] Viridiana Cm, RN ., C [facility] Nurses .. * Medical History: * [...] recommended f/u: . ER/Hospital F/U appointment with [facility]: [facility] f/u appointment date:: 03/09/202504/01/giacomo Hutton Notification of ER/hospital visit from: ., Records received Reason for the Visit: .ho spital stay at [facility] Date of ER/urgen t visit or hospitalization: 03/01/25 Nurse completing documentation [facility] Nurses: Kate Cm RN . [facility] Nurses: . If instructed by nurse/provider, did the pt go to ER/UC? ER/Urgent Care follow-throug h: The nurse or provider did not initiate the ER/urgent care visit. . Appointment Kept? Did the patient keep the appointment with [facility]?: .
--- OUTSIDE RECORDS SUMMARY | 2025-03-09 13:00 | XMS_ITS ---
Author Organization [facility] Address [address] [place] [address] Phone [phone] Care Team Providers Care Ore Charger Name Role Phone Rojas Alexis Primary Care Provider [phone] REASON FOR VISIT last seen on CRU [...] Provider Diagnosis 03/09/2025 01:00 PM Office Visit [facility] [address] [place] [address] Rojas Alexis Plan Of Treatment Next Appt Details Provider Name:Sudhir haynes, 03/29/2025 08:20:00 AM, [address], [place], [address], Medical (General) History Medical History History ICD Code chronic anxiety depression Opioid use disorder Generalized anxiety disorder Insomnia Constipation Alcohol use disorder Surgical History Surgery Date(Month/Year) Hospitalization History Reason Date(Month/Year) Alcohol detox, [facility], 2024-12-0 1 [place] 10/2024 Progress Notes * Anton MCCABE:1990 (34 yo M)Acc No.[id number]:03/09/2025 UNLOCKED PROGRESS NOTE Progress Notes Patient: Kwasi EARLY Provider: Joshua Alexis APN :1990 A ge:34 Y S ex:Male Date:03/09/2025 Phone: Address:[address] [place], [place] [phone] Subjective: * Chief Complaints: * 1 . [...] * Electronic signature of Darrion Alexis on 03/23/2025 at 09:24 AM RADIO PRESENTER Sign off status: Pending * Provider: Joshua Alexis APN Date: 05/10/2024 Generated for Marlo feldman/Farzana/Michael on: 09:24 AM RADIO PRESENTER
--- OUTSIDE RECORDS SUMMARY | 2025-03-23 09:24 | XMS_ITS | Clinical Summary ---
Author Organization [facility] Address [address] [place] [address] Care Team Providers Care Showroom Consultant Name Role Phone No, Physician Primary Care [...] 02/21/2025 Assessment & Plan (02/21/2025 3:32 PM DAY CAMP COUNSELOR): -CIWA -Electrolytes unremarkable on presentation -Warm and of consult will use Valium instead of IV Ativan Substance use disorder 02/21/2025 Assessment & Plan (02/21/2025 3:32 PM DAY CAMP COUNSELOR): History of opioid use disorder -Continue Suboxone -UDS with benzos and cannabis Encounters Date Type Department Care Team Description 03/21/[address] [address] Sakshi Hines, RN 03/21/[address] [address] Sakshi Hines, RN 03/20/2025 5:07 AM DAY CAMP COUNSELOR - 03/20/2025 7:05 AM [facility] Emergency [address] [address] Acute left-sided low back pain without sciatica (Primary Dx); Left arm pain Discharge Disposition: Discharge to home or self care 03/20/2025 4:06 AM DAY CAMP COUNSELOR - 03/20/2025 4:22 AM [facility] Emergency [address] [address] Discharge Disposition: Left without being seen 03/20/2025 2:57 AM DAY CAMP COUNSELOR - 03/20/2025 3:29 AM [facility] Emergency [address] [address] Discharge Disposition: Left without being seen 03/08/2025 11:18 PM DAY CAMP COUNSELOR - 03/08/2025 11:59 PM DAY CAMP COUNSELOR Hospital Encounter [facility] Emergency, Room R Discharge Disposition: Discharge to home or self care 02/23/2025 Documentation [facility] Warm Hand Off Program [address] [place], [place] [phone] Bree Ca 02/22/2025 [facility] Enrollment [facility] [address] [place], [place] [phone] Mark Wood RRT 02/21/2025 1:25 PM DAY CAMP COUNSELOR - 02/23/2025 8:15 AM DAY CAMP COUNSELOR Hospital Encounter [facility] Medical Care [address] [place] [address] Sandeep Garcia MD Shaba, Winnie, MD Alcohol use disorder (Primary Dx); Substance use disorder Discharge Disposition: Discharge to an IP Rehab facility 02/21/2025 Documentation [facility] [address] [place], [place] [phone] Chelsea Ashton 02/21/2025 Documentation [facility] [address] [place], [place] [phone] Bree Ca from Last 3 Months Social [...] week 02/22/2025 How often do you attend denominational or jewish serv ices? Never 02/22/2025 Do you belong to any clubs o r organizations such as denominational groups, unions, fraternal or athletic groups, or [...] any time in the past 12 m [facility], were you homeless or living in a prison (including now)? Yes 02/22/2025 [facility] Utilities Answer Date Recorded In the [...] Comments Blood Pressure 136/80 03/20/2025 7:28 AM DAY CAMP COUNSELOR Pulse 80 03/20/2025 7:28 AM DAY CAMP COUNSELOR Temperature 36.4 C (97.5 F) 03/20/2025 4:57 AM DAY CAMP COUNSELOR Respiratory Rate 16 03/20/2025 7:28 AM DAY CAMP COUNSELOR Oxygen Saturation 99% 03/20/2025 7:28 AM DAY CAMP COUNSELOR Inhaled Oxygen Concentration - - Weight 94.3 kg (208 lb) 03/20/2025 3:18 AM DAY CAMP COUNSELOR Height 175.3 cm (5' 9) 02/21/2025 8:30 PM DAY CAMP COUNSELOR Body Mass Index 30.72 02/21/2025 8:30 PM DAY CAMP COUNSELOR Plan of Treatment Health Maintenance Due Date [...] Diagnosis Comments EGFR STAT 03/20/2025 5:37 AM DAY CAMP COUNSELOR DIFFERENTIAL AUTO STAT 03/20/2025 5:3 7 AM DAY CAMP COUNSELOR SALICYLATE LEVEL STAT 03/20/2025 5:37 AM DAY CAMP COUNSELOR ACETAMINOPHEN LEVEL STAT 03/20/2025 5 :37 AM DAY CAMP COUNSELOR DRUGS OF ABUSE SCREEN, URINE WITHOUT CONFIRMATION STAT 03/20/2025 5:37 AM DAY CAMP COUNSELOR ETHANOL STAT 03/20/2025 5:37 AM DAY CAMP COUNSELOR THYROID FUNCTION CASCADE STAT 03/20/2025 5:37 AM DAY CAMP COUNSELOR COMPREHENSIVE METABOLIC PANEL STAT 03/20/2025 5:37 AM DAY CAMP COUNSELOR CBC WITH AUTO DIFFERENTIAL STAT 03/20/2025 5:37 AM DAY CAMP COUNSELOR COVID-19 CORONAVIRUS RNA STAT 03/20/2025 5:37 AM DAY CAMP COUNSELOR URINALYSIS AND REFLEX TO MICROSCOPIC AND CULTURE STAT 03/20/2025 5:37 AM DAY CAMP COUNSELOR DRUGS OF ABUSE SCREEN, URINE WITHOUT CONFIRMATION STAT 02/21/2025 12:23 PM DAY CAMP COUNSELOR EGFR STAT 02/21/2025 11:30 AM DAY CAMP COUNSELOR DIFFERENTIAL AUTO STAT 02/21/2025 11: 30 AM DAY CAMP COUNSELOR SALICYLATE LEVEL STAT 02/21/2025 11:3 0 AM DAY CAMP COUNSELOR ETHANOL STAT 02/21/2025 11:30 AM DAY CAMP COUNSELOR ACETAMINOPHEN LEVEL STAT 02/21/2025 1 1:30 AM DAY CAMP COUNSELOR COMPREHENSIVE METABOLIC PANEL STAT 02/21/2025 11:30 AM DAY CAMP COUNSELOR CBC WITH AUTO DIFFERENTIAL STAT 02/21/2025 11:30 AM DAY CAMP COUNSELOR from Last 3 Months Results * COVID-19 Coronavirus RNA Nasopharyngeal (03/20/2025 5:37 AM DAY CAMP COUNSELOR) COVID-19 RNA Negative Negative Nasopharyngeal 03/20/2025 5: 37 AM DAY CAMP COUNSELOR 03/20/2025 5:41 AM DAY CAMP COUNSELOR Narrative [facility] - 03/20/2025 7:17 AM DAY CAMP COUNSELOR Is the patient experiencing any symptoms consistent with COVID (eg. Fever, cough, shortness of breath)?->No What is the reason for testing?->Screening prior to Behavioral health admission Interpretive data Testing performed by [facility]. This test is performed using the [employer] Xpert Xpress CoV-2 plus assay. This is a real-time RT-PCR test intended for the qualitative detection of nucleic acid from the SARS-CoV-2. This assay has been cleared by the [place] Food and Drug administration. The performance characteristics have been verified by the [facility]. Results must be considered in the clinical context, and a negative result does not rule out infection. Interpretive data last revised 2023. Interpretive data Testing performed by [facility]. This test is performed using the [employer] Xpert Xpress CoV-2 plus assay. This is a real-time RT-PCR test intended for the qualitative detection of nucleic acid from the SARS-CoV-2. This assay has been cleared by the [place] Food and Drug administration. The performance characteristics have been verified by the [facility]. Results must be considered in the clinical context, and a negative result does not rule out infection. Interpretive data last revised 2023. Lissa ROMERO LAB MICROBIOLOGY - GEN ERAL ORDERABLES Final Result Performing Organization Address City/[facility]/ZIP Co de Phone Number ZOILA [address] [address] * eGFR (03/20/2025 5:37 AM DAY CAMP COUNSELOR) eGFR >90 >=60 mL/min/1. 73 m2 Comment: [...] last reviewed 2021. Blood 03/20/2025 5:37 AM DAY CAMP COUNSELOR 03/20/2025 5:41 AM DAY CAMP COUNSELOR Lissa ROMERO LAB BLOOD ORDERABLES F inal Result Performing Organization Address City/[facility]/ZIP Co de Phone Number ZOILA [address] [place] [address] * Differential, auto (03/20/2025 5:37 AM DAY CAMP COUNSELOR) Neutrophil abs 4.68 1.50 - 6.50 K/cumm Imm gran abs 0.02 0.00 - 0.10 K/cumm [facility] Lymphocyte abs 2.68 0.80 - 3.30 K/cumm [facility] Monocyte abs 0.53 0.20 - 0.80 K/cumm [facility] Eosinophil abs 0.39 0.00 - 0.50 K/cumm [facility] Basophil abs 0.03 0.00 - 0.10 K/cumm [facility] Neutrophil pct 56.1 % [facility] Comment: Interpretive Data Percent cell count reference ranges are not reported, since discordance with absolute values may lead to misinterpretation of CBC data. Current Interpretive Data was last revised on 2017. Imm gran pct 0.2 % [facility] Comment: Interpretive Data Percent cell count reference ranges are not reported, since discordance with absolute values may lead to misinterpretation of CBC data. Current Interpretive Data was last revised on 2017. Lymphocyte pct 32.2 % [facility] Comment: Interpretive Data Percent cell count reference ranges are not reported, since discordance with absolute values may lead to misinterpretation of CBC data. Current Interpretive Data was last revised on 2017. Monocyte pct 6.4 % [facility] Comment: Interpretive Data Percent cell count reference ranges are not reported, since discordance with absolute values may lead to misinterpretation of CBC data. Current Interpretive Data was last revised on 2017. Eosinophil pct 4.7 % [facility] Comment: Interpretive Data Percent cell count reference ranges are not reported, since discordance with absolute values may lead to misinterpretation of CBC data. Current Interpretive Data was last revised on 2017. Basophil pct 0.4 % [facility] Comment: Interpretive Data Percent cell count reference ranges are not reported, since discordance with absolute values may lead to misinterpretation of CBC data. Current Interpretive Data was last revised on 2017. Blood 03/20/2025 5:37 AM DAY CAMP COUNSELOR 03/20/2025 5:41 AM DAY CAMP COUNSELOR us Lissa ROMERO LAB BLOOD ORDERABLES F inal Result ZOILA [address] [facility] [place] [address] * Thyroid Function [place] (03/20/2025 5:37 AM DAY CAMP COUNSELOR) TSH 0.92 0.30 - 4.20 mcIUnit/mL Blood 03/20/2025 5:37 AM DAY CAMP COUNSELOR 03/20/2025 5:41 AM DAY CAMP COUNSELOR Lissa ROMERO LAB BLOOD ORDERABLES F inal Result Performing Organization Address [facility] Co de Phone Number [address] [place] [address] * (ABNORMAL) Urinalysis reflex to microscopic and culture Urine (03/20/2025 5:37 AM DAY CAMP COUNSELOR) Color, ur Yellow Yellow Clarity, ur Clear Clear [facility] Specific gravity, ur 1.019 1.003 - 1.030 [facility] pH, urine 7.5 [facility] Comment: Interpretive Data U rine pH is affected by diet, medications, systemic acid-base disturbances, and renal tubular function. pH may affect urinary stone formation. For example, urine pH below 6.0 may help reduce the tendency for calcium phosphate stones and pH greater than 6.0 may reduce the tendency for uric acid stone formation. Source: [facility] Current Interpretive Data was last revised on 2017 Protein, ur ql Negative Negative [facility] Glucose, ur ql Negative Negative [facility] Ketones, ur Negative Negative [facility] Bilirubin, ur Negative Negative [facility] Blood, ur Negative Negative [facility] Urobilinogen, ur 2.0(A) <2.0 mg/dL [facility] Nitrite, ur Negative Negative [facility] Leukocyte esterase, ur Negative Negative [facility] UA reflex comment Reflex conditions for microscopic UA and culture not met. [facility] Urine 03/20/2025 5:37 AM DAY CAMP COUNSELOR 03/20/2025 5:41 AM DAY CAMP COUNSELOR Lissa ROMERO LAB MICROBIOLOGY - GEN ERAL ORDERABLES Final Result Performing Organization Address City/[facility]/ZIP Co de Phone Number [address] [facility] [place] [address] * (ABNORMAL) CBC with auto differential (03/20/2025 5:37 AM DAY CAMP COUNSELOR) [facility] WBC 8.33 3.80 - 9.90 K/cumm Hgb 12.9(L) 13.0 - 17.5 g/dL [facility] Hct 38.1(L) 38.9 - 50.3 % [facility] Plt 226 150 - 400 K/cumm [facility] MPV 10.8 9.1 - 12.3 fL [facility] RBC 4.39 4.30 - 5.80 M/cumm [facility] MCV 86.8 81.3 - 96.4 fL [facility] MCH 29.4 27.1 - 33.3 pg [facility] MCHC 33.9 32.3 - 35.7 g/dL [facility] RDW CV 13.0 11.1 - 14.9 % [facility] RDW SD 41.0 35.7 - 48.1 fL [facility] NRBC abs 0.00 0.00 - 0.01 K/cumm [facility] Blood Venous blood specimen / Unknown 03/20/2025 5:37 AM DAY CAMP COUNSELOR 03/20/2025 5:41 AM DAY CAMP COUNSELOR Lissa ROEMRO LAB BLOOD ORDERABLES F inal Result [facility] [address] [facility] [place] [address] * (ABNORMAL) Drugs of Abuse Screen, Urine without Confirmation (03/20/2025 5:37 AM DAY CAMP COUNSELOR) [facility] Amphetamine, ur Not Detected CutOff 500ng/mL Comment: Interpretive Data - Amphetamines: Samples containing greater than 500 ng/mL d-methamphetamine or other cross-reacting amphetamine compounds are reported as positive. Amphetamine immunoassays are subject to significant false positive rates due to cross-reactivity of non-amphetamine drugs. Confirmatory testing required for definitive results. Current Interpretive Data was last reviewed 2022. Barbiturates, ur Not Detected CutOff 200ng/mL [facility] Comment: Interpretive Data - Barbiturates: Samples containing greater than 200 ng/mL secobarbital or other cross-reacting barbiturate compounds are reported as positive. False positive and false negative results are possible. Confirmatory testing required for definitive results. Current Interpretive Data was last reviewed 2022. Benzodiazepines, ur Screen Positive, presumptive (A) CutOff 100ng/mL [facility] Comment: Interpretive Data - Benzodiazepines: Samples containing greater than 100 ng/mL nordiazepam or other cross-reacting compounds are reported as positive. False positive and false negative results are possible. Confirmatory testing required for definitive results. Current Interpretive Data was last reviewed 2022. Cannabinoids, ur Screen Positive, presumptive (A) CutOff 50 ng/mL [facility] Comment: Interpretive Data - Cannabinoids: Samples containing greater than 50 ng/mL delta-9 THC -COOH or other cross- reacting compounds are reported as positive. False positive and false negative results are possible. Confirmatory testing required for definitive results. Current Interpretive Data was last reviewed 2022. Cocaine, ur Not Detected CutOff 150ng/mL [facility] Comment: Interpretive Data - Cocaine: Samples containing greater than 150 ng/mL benzoylecgonine or other cross- reacting compounds are reported as positive. False positive and false negative results are possible. Confirmatory testing required for definitive results. Current Interpretive Data was last reviewed 2022. Fentanyl, Ur Not Detected CutOff 5 ng/mL [facility] Comment: Interpretive Data - Fentanyl: Samples containing greater than 5 ng/mL norfentanyl, fentanyl, or other cross-reacting fentanyl compounds are reported as positive. False positive and false negative results are possible. Confirmatory testing required for definitive results. Current Interpretive Data was last reviewed 2023. Methadone, ur Not Detected CutOff 300ng/mL [facility] Comment: Interpretive Data - Methadone: Samples containing greater than 300 ng/mL d,l-methadone or other cross-reacting compounds are reported as positive. False positive and false negative results are possible. Confirmatory testing required for definitive results. Current Interpretive Data was last reviewed 2022. Opiates, ur Not Detected CutOff 300ng/mL [facility] Comment: Interpretive Data - Opiates: Samples containing greater than 300 ng/mL morphine or other cross-reacting compounds are reported as positive. False positive and false negative results are possible. Confirmatory testing required for definitive results. Current Interpretive Data was last reviewed 2022. Oxycodone, ur Not Detected CutOff 100ng/mL [facility] Comment: Interpretive Data - Oxycodone: Samples containing [...] revised on 2017. Urine 03/20/2025 5:37 AM DAY CAMP COUNSELOR 03/20/2025 5:41 AM DAY CAMP COUNSELOR Narrative ZOILA - 03/20/2025 6:06 AM DAY CAMP COUNSELOR Drug of Abuse screening is performed by immunoassay for medical purposes only. This is not to be used for Pain Management purposes. Lissa ROMERO LAB URINE ORDERABLES F inal Result [facility] [address] [facility] Department [place] [address] * Ethanol (03/20/2025 5:37 AM DAY CAMP COUNSELOR) Ethanol <10 <=10 mg/dL Comment: Interpretive Data Legal limit of intoxication > or = 80 mg/dL Levels > or = 400 mg/dL are potentially TOXIC. Current interpretive data was last revised on 2018. Blood 03/20/2025 5:37 AM DAY CAMP COUNSELOR 03/20/2025 5:41 AM DAY CAMP COUNSELOR Lissa ROMERO LAB BLOOD ORDERABLES F inal Result Performing Organization Address [facility] Co de Phone Number [address] [place] [address] * Acetaminophen level (03/20/2025 5:37 AM DAY CAMP COUNSELOR) Acetaminophen <5 <=5 mcg/mL Comment: Interpretive Data Significant hepatic injury may occur and treatment with n-acetyl cysteine is generally recommended if the acetaminophen level exceeds: 150 mcg/mL at 4 hours after ingestion 75 mcg/mL at 8 hours after ingestion 38 mcg/mL at 12 hours after ingestion 19 mcg/mL at 16 hours after ingestion Consult toxicology or poison control ([phone]) for unknown ingestion time. Current interpretive data was last revised 2022. Blood 03/20/2025 5:37 AM DAY CAMP COUNSELOR 03/20/2025 5:41 AM DAY CAMP COUNSELOR Lissa ROMERO LAB BLOOD ORDERABLES F inal Result Performing Organization Address [facility] Co de Phone Number [address] [place] [address] * Salicylate level (03/20/2025 5:37 AM DAY CAMP COUNSELOR) Salicylate <1.0 <=1.0 mg/dL Comment: Interpretive Data Toxic: 30 mg/dL or greater. Current interpretive data was last revised 2022. Blood 03/20/2025 5:37 AM DAY CAMP COUNSELOR 03/20/2025 5:41 AM DAY CAMP COUNSELOR Lissa ROMERO LAB BLOOD ORDERABLES F inal Result Performing Organization Address [facility] Co de Phone Number [place] [address] [facility] [place] [place] [address] * Comprehensive metabolic panel (03/20/2025 5:37 AM DAY CAMP COUNSELOR) Sodium 140 135 - 145 mmol/L Potassium, pl 4.0 3.3 - 4.9 mmol/L [facility] Chloride 103 97 - 110 mmol/L [facility] CO2 27 22 - 32 mmol/L [facility] Anion gap 10 2 - 15 mmol/L [facility] BUN 14 6 - 25 mg/dL [facility] Creatinine 0.90 0.80 - 1.30 mg/dL [facility] Glucose 105 70 - 199 mg/dL [facility] Comment: Interpretive Data Fasting glucose >/= [...] classification and Diagnosis of Diabetes Diabetes Care 202; 46: S19-S40. Current interpretive data was last revised 2022. Calcium 8.9 8.5 - 10.3 mg/dL [facility] Bilirubin, total 0.3 0.1 - 1.2 mg/dL [facility] Protein, pl 6.7 6.5 - 8.5 g/dL [facility] Albumin 4.2 3.5 - 5.0 g/dL [facility] Alk phos 68 40 - 130 Units/L [facility] ALT 15 7 - 55 Units/L [facility] AST 25 10 - 50 Units/L [facility] Blood 03/20/2025 5:37 AM DAY CAMP COUNSELOR 03/20/2025 5:41 AM DAY CAMP COUNSELOR Lissa ROMERO LAB BLOOD ORDERABLES F inal Result [facility] [address] [facility] Department of Laboratories [place], [place] [id number] * (ABNORMAL) Drugs of Abuse Screen, Urine without Confirmation (02/21/2025 12:23 PM DAY CAMP COUNSELOR) [facility] Amphetamine, ur Not Detected CutOff 500ng/mL Comment: [...] 2022. Opiates, ur Not Detected CutOff 300ng/mL ZOILA QUINTANA ([place]) Comment: Interpretive Data - Opiates: Samples [...] on 2017. Urine 02/21/2025 12:2 3 PM DAY CAMP COUNSELOR 02/21/2025 12:25 PM DAY CAMP COUNSELOR Narrative ZOILA QUINTANA ([place]) - 02/21/2025 1:10 PM DAY CAMP COUNSELOR Drug of Abuse screening is performed by immunoassay for medical purposes only. This is not to be used for Pain Management purposes. us Malick ROMERO LAB URINE ORDERABLES Final R esult ZOILA QUINTANA ([place]) [address] [facility] Department [place] [address] * eGFR (02/21/2025 11:30 AM DAY CAMP COUNSELOR) eGFR >90 >=60 mL/min/1. 73 m2 Comment: [...] reviewed 2021. Blood 02/21/2025 11:3 0 AM DAY CAMP COUNSELOR 02/21/2025 11:34 AM DAY CAMP COUNSELOR us Malick ROMERO LAB BLOOD ORDERABLES Final R esult [facility] ([place]) [address] [facility] Department [place] [address] * Differential, auto (02/21/2025 11:30 AM DAY CAMP COUNSELOR) Pathologist [facility] Neutrophil abs 4.56 1.50 - 6.50 K/cumm Imm gran abs 0.01 0.00 - 0.10 K/cumm [facility] ([place]) Lymphocyte abs 2.59 0.80 - 3.30 K/cumm [facility] ([place]) Monocyte abs 0.52 0.20 - 0.80 K/cumm [facility] ([place]) Eosinophil abs 0.27 0.00 - 0.50 K/cumm [facility] ([place]) Basophil abs 0.03 0.00 - 0.10 K/cumm [facility] ([place]) Neutrophil pct 57.1 % [facility] ([place]) Comment: Interpretive Data Percent cell count reference [...] revised on 2017. Monocyte pct 6.5 % [facility] ([place]) Comment: Interpretive Data Percent cell [...] revised on 2017. Basophil pct 0.4 % [facility] ([place]) Comment: Interpretive Data Percent cell count reference ranges are not reported, since discordance with absolute values may lead to misinterpretation of CBC data. Current Interpretive Data was last revised on 2017. Blood 02/21/2025 11:3 0 AM DAY CAMP COUNSELOR 02/21/2025 11:34 AM DAY CAMP COUNSELOR Malick ROMERO LAB BLOOD ORDERABLES Final R esult ZO[facility]A [place] ([place]) [address] [facility] Department of Laboratories [place], [place] [id number] * (ABNORMAL) CBC with auto differential (02/21/2025 11:30 AM DAY CAMP COUNSELOR) WBC 7.98 3.80 - 9.90 K/cumm Hgb 14.2 13.0 - 17.5 g/dL [facility] ([place]) Hct 42.0 38.9 - 50.3 [...] RDW SD 39.4 35.7 - 48.1 fL [facility] ([place]) NRBC abs 0.02(H) 0.00 - 0.01 K/cumm [facility] ([place]) Blood 02/21/2025 11:3 0 AM DAY CAMP COUNSELOR 02/21/2025 11:34 AM DAY CAMP COUNSELOR Malick ROMERO LAB BLOOD ORDERABLES Final R esult Performing Organization Address City/[facility]/ZIP Co de Phone Number ZOILA [place] ([place]) 1 [facility] [place] [address] * Ethanol (02/21/2025 11:30 AM DAY CAMP COUNSELOR) Ethanol <10 <=10 mg/dL Comment: Interpretive Data Legal limit of intoxication > or = 80 mg/dL Levels > or = 400 mg/dL are potentially TOXIC. Current interpretive data was last revised on 2018. Blood 02/21/2025 11:3 0 AM DAY CAMP COUNSELOR 02/21/2025 11:34 AM DAY CAMP COUNSELOR Malick ROMERO LAB BLOOD ORDERABLES Final R esult ZOILA [place] ([place]) 1 [facility] [place] [address] * Acetaminophen level (02/21/2025 11:30 AM DAY CAMP COUNSELOR) Acetaminophen <5 <=5 mcg/mL Comment: Markedly elevated [...] after ingestion Consult toxicology or poison control ([phone]) for unknown ingestion time. Current interpretive data was last revised 2022. Blood 02/21/2025 11:3 0 AM DAY CAMP COUNSELOR 02/21/2025 11:34 AM DAY CAMP COUNSELOR Malick ROMERO LAB BLOOD ORDERABLES Final R esult Performing Organization Address [facility] Co de Phone Number ZOILA [facility] ([place]) [address] [facility] [place] [address] * Salicylate level (02/21/2025 11:30 AM DAY CAMP COUNSELOR) Salicylate <5.0 <=5.0 mg/dL Comment: Interpretive Data Toxic: 30 mg/dL or greater. Current interpretive data was last revised 2022. Blood 02/21/2025 11:3 0 AM DAY CAMP COUNSELOR 02/21/2025 11:34 AM DAY CAMP COUNSELOR Malick ROMERO LAB BLOOD ORDERABLES Final R esult Performing Organization Address City/[facility] Co de Phone Number ZOILA [facility] ([place]) [address] [facility] [place] [address] * Comprehensive metabolic panel (02/21/2025 11:30 AM DAY CAMP COUNSELOR) Sodium 139 135 - 145 mmol/L Potassium, pl 3.9 3.3 - 4.9 mmol/L [facility] ([place]) Chloride 99 97 - 110 mmol/L [facility] ([place]) CO2 31 22 - 32 mmol/L [...] classification and Diagnosis of Diabetes Diabetes Care 202; 46: S19-S40. Current interpretive data was last [...] [facility] Blood 02/21/2025 11:3 0 AM DAY CAMP COUNSELOR 02/21/2025 11:34 AM DAY CAMP COUNSELOR us Malick [facility] LAB BLOOD ORDERABLES Final R esult [facility] ([place]) 1 [facility] Department [place] [address] from Last 3 Months Insurance [employer] [facility] Advance Directives For more information, please contact: [phone] * Full Code (Latest Code Status on File) Date Activated Date Inactivated Comments 02/21/2025 4:08 PM 02/23/2025 12:20 PM Care Teams Showroom Consultant Relationship Specialty Start Date End Date No, Physician PCP - General 10/27/24
--- OUTSIDE RECORDS SUMMARY | 2025-03-23 09:24 | XMS_ITS | Patient Health Record ---
Author Organization [facility] Address [address] [place] [address] Phone [phone] Care Team Providers Care Professor Of Economics Name Role Phone Rojas Alexis Primary Care Provider [phone] Melania Nayak APRN Unavailable [phone] Tyler Smiley Unavailable [phone] Anni Castillo Unavailable Libertad Wang Unavailable [phone] Allergies No Known Allergies Results Component Value Reference Range Flag Notes TSH+Free T4 Order date: 12/09/2024 Reviewed date:12/31/2024 08:38:59 AM Interpretation: Performing Lab:[facility], [address] [place] [address], Phone - [phone], Director - Jane Notes/Report: TSH-ICMA 2.5 Reference Range: Non- Adult 0.450-4.500 Free T4 by Dialysis/Block Paver 0.67 L This test was developed and its performance characteristics determined by [facility]. It has not been cleared or approved by the Food and Drug Administration. Reference Range: Pubertal Children and Adults: 0.8 - 1.7 14 Panel Urine Drug Screen ( Not yet reviewed by provider) Order date: 03/23/2025 Interpretation: Performing Lab: Notes/Report: THC pos ANJELICA neg MOP (OPI) neg AMP neg MET neg BAR neg BZO pos MDMA neg MTD neg OXY neg PCP [...] neg BUP POS TCA neg FTY neg Rapid Plasma Reagin (RPR) Te st With Reflex to Quantitative RPR and Confirmatory Treponema pallidum Antibodies Order date: 02/23/2025 Reviewed date:02/25/2025 08:25:37 AM Interpretation: Performing Lab:[facility], [address] [place] [address], Phone - [phone], Director - MDSierra Notes/Report: RPR Non Reactive Non Reactive Chlamydia trachomatis,Neisse charu gonorrhoeae, and Trichomonas vaginalis, ROX ([id number]) Order date: 02/23/2025 Reviewed date:02/25/2025 08:25:37 AM Interpretation: Performing Lab:[facility], [address] [place], [place] [address]Andrew [place], Phone - [phone], Director - MDSierra Notes/Report: Chlamydia by ROX Negative Negative Gonococcus [...] Interpretation: Performing Lab: Notes/Report: JOSÉ MIGUEL .000 CBC With Differential/Platel et* Order date: 11/09/2024 Reviewed date:11/12/2024 08:05:27 AM Interpretation: Performing Lab:[facility], [address] [facility], Phone - [phone], Director - [facility] Notes/Report: WBC 7.4 3.4-10.8 x10E3/uL RBC 4.82 [...] Reviewed date:11/12/2024 08:05:27 AM Interpretation: Performing Lab:[facility], [address] [facility], Phone - [phone], Director - Kvng Notes/Report: Glucose 74 70-99 [...] Screen *HIV 1, 2 Ab, p24 Ag ([id number]) Order date: 11/09/2024 Reviewed date:11/12/2024 08:05:27 AM Interpretation: Performing Lab:[facility], [address] [facility], Phone - [phone], Director - [facility] Notes/Report: HIV Ab/p24 Ag Screen Non Reactive Non Reactive HIV-1/HIV-2 antibodies and HIV-1 p24 antigen were NOT detected. There is no laboratory evidence of HIV infection. HIV Negative QuantiFERON-TB Gold Plus ([id number]) Order date: 11/09/2024 Reviewed date:11/12/2024 08:05:27 AM Interpretation: Performing Lab:[facility], [address] [facility], Phone - [phone], Director - [facility] Notes/Report: QuantiFERON Incubation Incubation performed. QuantiFERON-TB Gold [...] Antibody w /Rflx to Quantitative Real-time PCR ([id number]) Order date: 11/09/2024 Reviewed date:11/12/2024 08:05:27 AM Interpretation: Performing Lab:[facility], [address] [facility], Phone - [phone], Director - [facility] Notes/Report: HCV Ab Non Reactive Non Reactive Interpretation: Not infected with HCV unless early or acute infection is suspected (which may be delayed in an immunocompromised individual), or other evidence exists to indicate HCV infection. Hepatitis B Surface Antigen (HBsAg Screen) Order date: 11/09/2024 Reviewed date:11/12/2024 08:05:27 AM Interpretation: Performing Lab:[facility], [address] [facility], Phone - [phone], Director - [facility] Notes/Report: HBsAg Screen Negative Negative 14 Panel [...] Date End Date Diagnosis (ICD Code) Status Buprenorphine HCl-Naloxone HCl 8-2 MG Tablet Sublingual 1 tablet under the tongue and allow to dissolve Sublingual 4 times a day 03/23/2025 Opioid use disorder (ICD_10 - F11.99) Active QUEtiapine Fumarate 150 MG Tablet 1 [...] general medical examination (ICD_10 - Z00.00) Active hydrOXYzine Pamoate 25 MG Capsule 1-2 [...] EVERY SIX HOURS NEEDED; Duration: 30 Active Multi Vitamin - Tablet 1 tablet [...] Value Assessment Notes Goals Interventions General Notes 03/23 YOVANNY TRIMBLE (LOIN C: 28356 -5) Total Score : 13 Please specify [...] hotel for 2-3 weeks after eviction from [facility] Drug use: Refused drug test, no substances in system at time of test Alcohol use: Relapsed, drinking daily for three weeks, up to 15 drinks per day, last drink three days ago Date Completed/Updated: 02/23/2025 What is your current housing situation? 49844-9 I do not have housing (staying with others, in a hotel, in a long-term, living outside on the street, on a beach, or in a park) (ZH11152-8) Are you worried about losing your housing? 91441-9 No (LA32-8) What is the highest level of school that you have finished? 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 Check all that apply 06665-8 Food (OI59006-9) Clothing (OI02000-6) Utilities (MH81022-9) Medicine or any health care (medical, dental, mental health or vision) (UT20024-3) Has lack of transportation k ept you from medical appointments, meetings, work or from getting things needed for daily living? 35554-4 Yes, it has kept me from medical appointments or from getting my medications (HN39622-6) Yes, it has kept me from non-medical meetings, appointments, work, or getting things needed for daily living (SG53115-0) How often do you see or talk to people that you care about and feel close to? (For example: talking to friends on the phone, visiting friends or family, going to synagogue or club meetings) 56334-6 More than 5 times a week (LL25978-7) How stressed are you? Stress is when someone feels tense, nervous, anxious, or can\t sleep at night because their mind is troubled 31285-4 Very much (AZ88873-8) In the past year have you sp ent more than 2 nights in a row in a skilled nursing, penitentiary, jail center, or juvenile correctional facility? 97801-3 No (LA32-8) Do you feel physically and e motionally safe where you currently live? 16069-6 No (LA32-8) In the past year, have you b een afraid of your partner or ex-partner? 34293-4 No (LA32-8) Are you a refugee? I [...] with others, in a hotel, in a long-term, living outside on the street, on a beach, or in a park) Are you worried about losing your housing? No What is the highest level of school that you have finished? 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 Stress is when someone feels tense, nervous, anxious, or can\t sleep at night because their mind is troubled Very much In the past year have you sp ent more than 2 nights in a row in a skilled nursing, penitentiary, jail center, or juvenile correctional facility? No Are [...] hotel for 2-3 weeks after eviction from [facility] Drug use: Refused drug test, no substances in system at time of test Alcohol use: Relapsed, drinking daily for three weeks, up to 15 drinks per day, last drink three days ago Problems Problem Type SNOMED Code ICD Code Dates Problem Status W/U Status Risk Notes Problem Substance abuse (0469960926) Substance abuse (F19.10) Added On:11/09 Active confirmed Problem Social anxiety disorder (42504683) Social anxiety disorder (F40.10) Added On:11/11 Active confirmed Problem Generalized anxiety disorder (66032289) NIDA (generalized anxiety disorder) (F41.1) Added On:11/11 Active confirmed Problem Thyroid disorder screening (921030389) Screening for thyroid disorder (Z13.29) Added On:11/11 Active confirmed Problem Overweight (712582255) Over weight (E66.3) Added On:11/09 Active confirmed Problem Obesity (440166409) Obesity (BMI 30-39.9) (E66.9) Added On:12/02 Active confirmed Problem Subclinical hyperthyroidism (788996857) Subclinical hyperthyroidism (E05.90) Added On:11/11 Active confirmed Problem Mental health problem (442244130) Mental health problem (F48.9) Added On:02/23 Active confirmed Problem Physical examination, complete (10428630) Adult general medical examination (Z00.00) Added On:11/09 Active confirmed Problem History of hyperthyroidism (732853881) History of hyperthyroidism (Z86.39) Added On:11/11 Active confirmed Problem Opioid use disorder (8308566937) Opioid use disorder (F11.99) Added On:11/16 Active confirmed Problem Low back pain (889919195) Low back pain, unspecified (M54.50) Added On:11/09 Active confirmed Vital Signs Vital Sign Value Notes Appt Date Heart Rate 68 /min patient c/o pain in back this visit. Provider aware 03/23/2025 Temperature 97.7 degrees Fahrenheit patient c/o pain in back this visit. Provider aware 03/23/2025 Respiratory Rate 18 /min patient c/o teofilo n in back this visit. Provider aware 03/23/2025 Oximetry 97 % patient c/o pain in back this visit. Provider aware 03/23/2025 Blood pressure diastolic 72 mm Hg patient c/o pain in back this visit. Provider aware 03/23/2025 Height 69 in patient c/o pain in back this visit. Provider aware 03/23/2025 Blood pressure systolic 124 mm Hg patient c/o pain in back this visit. Provider aware 03/23/2025 Weight 210.4 lbs patient c/o pain in back this visit. Provider aware 03/23/2025 BMI 31.07 kg/m2 patient c/o pain in back this visit. Provider aware 03/23/2025 Encounters Date Time Type Facility Location Provider Diagnosis 08:40 AM Office Visit [facility] [address] [place] [place] [address] Melania Nayak Opioid use disorder F11.99 and Over weight E66.3 5 09:00 AM Office Visit, New Pt., Level 3 (15696) [place] [address] [place] [address] Rojas Alexis Adult general medical examination Z00.00 ; Over weight E66.3 ; Low back pain, unspecified M54.50 and Diarrhea R19.7 5 09:40 AM Office Visit [facility] [place] [address] Libertad Felipe Substance abuse F19.10 and Over weight E66.3 5 08:40 AM Office Visit, Est Pt., Level 4 (92897) [facility] [place] [address] Anni Castillo Social anxiety disorder F40.10 ; NIDA (generalized anxiety disorder) F41.1 and Over weight E66.3 5 11:20 AM Office Visit, Est Pt., Level 3 (10671) [facility] [place] [address] Jenia Heavens Opioid use disorder F11.99 ; Over weight E66.3 and Dental abscess K04.7 5 11:20 AM Office Visit, Est Pt., Level 3 (97097) [facility] [place] [address] Jenia Heavens Opioid use disorder F11.99 and Over weight E66.3 5 10:20 AM Office Visit, Est Pt., Level 3 (38683) [facility] [place] [address] Jenia Heavens Opioid use disorder F11.99 and Obesity (BMI 30-39.9) E66.9 5 08:20 AM Office Visit [facility] [place] [address] Rojas Alexis 5 10:20 AM Office Visit, Est Pt., Level 3 (68642) [facility] [place] [address] Jenia Heavens Opioid use disorder F11.99 and Over weight E66.3 5 03:00 PM Office Visit, Est Pt., Level 3 (08997) [facility] [place] [address] Jenia Heavens Opioid use disorder F11.99 and Obesity (BMI 30-39.9) E66.9 5 08:20 AM Office Visit, Est Pt., Level 3 (27609) [facility] [place] [address] Melania Nayak Opioid use disorder F11.99 ; Social anxiety disorder F40.10 and Obesity (BMI 30-39.9) E66.9 5 09:20 AM Office Visit, Est Pt., Level 4 (42836) [facility] [place] [address] Rojas Alexis Over weight E66.3 ; Adult general medical examination Z00.00 and Unprotected sex Z72.51 5 10:00 AM Office Visit [facility] [place] [address] Libertad Wang Over weight E66.3 ; Substance abuse F19.10 and Mental health problem F48.9 5 09:40 AM Office Visit, Est Pt., Level 3 (38528) [facility] [place] [address] Melania Nayak Opioid use disorder F11.99 5 02:55 PM Telephone Encounter [facility] [place] [address] Rojas Alexis 5 01:31 PM Telephone Encounter [address] [place] [address] Tyler Smiley 5 11:51 AM Telephone Encounter [facility] [place] [address] Rojas Alexis Screening for thyroid disorder Z13.29 5 08:40 AM Telephone Encounter [facility] [place] [address] Anni Castillo 5 10:47 AM Telephone Encounter [facility] [place] [address] Anni Castillo 5 11:51 AM Telephone Encounter [address] [place] [address] Melania Nayak Adult general medical examination Z00.00 and Opioid use disorder F11.99 5 03:13 PM Telephone Encounter [facility] [address] [place] [address] Anni Castillo Social anxiety disorder F40.10 5 10:46 AM Telephone Encounter [address] [place] [address] Anni Castillo Opioid use disorder F11.99 and Social anxiety disorder F40.10 5 08:02 AM Telephone Encounter [facility] [address] [place] [address] Melania Nayak 5 02:08 PM Telephone Encounter [facility] [address] [place] [address] Rojas Alexis 5 03:27 PM Telephone Encounter [address] [place] [address] Melania Nayak 5 09:48 AM Telephone Encounter [facility] [address] [place] [address] Anni Castillo Assessments Encounter Date Diagnosis (ICD Code) Assessment Notes Treatment Notes Section Notes 11/09/2024 Adult general medical examination (ICD-10 - [...] pain/redness/swelling, or if soaking through bandages. 11/09/2024 Low back pain, unspecified (ICD-10 - M54.50) 11/09/2024 Substance abuse (ICD-10 - F19.10) 11/09/2024 Over weight (ICD-10 - E66.3) 11/11/2024 Social anxiety disorder (ICD-10 - F40.10) Continue current medication. He is interesting in restarting Klonopin. Discussed Duloxetine. He does not want anymedication added other than Klonopin. Continue services as scheduled. Labs completed recently. May self-administer medications or be administered own oral medications per [place] protocols. Provided informed consent with understanding of side effects, adverse effects, risks and benefits as well as alternative treatments as previously discussed and with the above recommended medications & other aspects of the treatment program. Agrees to return sooner if symptoms worsen or suicidal or homicidal ideations occur. 11/16/2024 Opioid use disorder (ICD-10 - F11.99) Medication increased as above due to reports of continued cravings. 11/25/2024 Over weight (ICD-10 - E66.3) 11/25/2024 Opioid use disorder (ICD-10 - F11.99) 12/02/2024 Obesity (BMI 30-39.9) (ICD-10 - E66.9) 12/02/2024 Opioid use disorder (ICD-10 - F11.99) 12/16/2024 Over weight (ICD-10 - E66.3) 12/16/2024 Opioid use disorder (ICD-10 - F11.99) 12/30/2024 Adult general medical examination (ICD-10 - Z00.00) 12/30/2024 Obesity (BMI 30-39.9) (ICD-10 - E66.9) 12/30/2024 Opioid use disorder (ICD-10 - F11.99) Ongoing management with Suboxone. Patient reports continued use and requests refill, currently has 6 tablets left. No concerns or non-compliance reported. - Refill Suboxone 8 mg, four times daily, dispense 30 tablets. 12/30/2024 Social anxiety disorder (ICD-10 - F40.10) 11/11/2024 Screening for thyroid disorder (ICD-10 - Z13.29) 11/16/2024 Over weight (ICD-10 - E66.3) 01/13/2025 Opioid use disorder (ICD-10 - F11.99) 01/28/2025 Social anxiety disorder (ICD-10 - F40.10) 01/28/2025 Opioid use disorder (ICD-10 - F11.99) [...] box. - Support ongoing group meeting attendance. 02/23/2025 Over weight (ICD-10 - E66.3) 02/23/2025 Adult general medical examination (ICD-10 - [...] increased pain/redness/swelling, or if soaking through bandages. 02/23/2025 Over weight (ICD-10 - E66.3) 02/24/2025 Opioid use disorder (ICD-10 - F11.99) History of opioid use disorder, currently taking Suboxone. Confirmed ongoing use and not out of medication. Discussed induction and refill with intake staff and hospital doctor. - Refill Suboxone, four times a day. 03/23/2025 Opioid use disorder (ICD-10 - F11.99) 03/23/2025 Over weight (ICD-10 - E66.3) 02/23/2025 Substance abuse (ICD-10 - F19.10) 02/23/2025 Unprotected sex (ICD-10 - Z72.51) 01/28/2025 Obesity (BMI 30-39.9) (ICD-10 - E66.9) 11/16/2024 Dental abscess (ICD-10 - K04.7) Encouraged to f/u with dental provider for further evaluation and treatment. 01/13/2025 Social anxiety disorder (ICD-10 - F40.10) 12/30/2024 Opioid use disorder (ICD-10 - F11.99) 11/11/2024 NIDA (generalized anxiety disorder) (ICD-10 - F41.1) 11/09/2024 Over weight (ICD-10 - E66.3) 11/11/2024 Over weight (ICD-10 - E66.3) 11/09/2024 Diarrhea (ICD-10 - R19.7) 02/23/2025 Mental health problem (ICD-10 - F48.9) 11/09/2024 Other Continue treatment as recommended by [facility] staff. Encouraged patient to obtain routine medical care with patient's own primary care provider or establish as a patient at [facility] if no current primary care provider. 11/09/2024 [...] or concerns. 12/13/2024 Other pt not seen, la bs drawn only 12/16/2024 Other Discussed medication [...] 02/23/2025 Other Continue treatment as recommended by [facility] staff. Encouraged patient to obtain routine medical care with patient's own primary care provider or establish as a patient at [facility] if no current primary care provider. 02/23/2025 [...] with questions or concerns. Plan Of Treatment Pending Test Test Name Order Date 14 Panel Urine Drug Screen 03/23/2025 Next Appt Details Provider Name:Sudhir haynes, 03/29/2025 08:20:00 AM, [address], [place], [address], Insurance Providers Payer Name Payer Address Payer Phone Subscriber Number Group Number Insured Name Patient Relationship to Insured Coverage Start Date Coverage End Date [facility] [address] [place] [address] [phone] [id number] Kwasi Mccabe Self - patient is the insured 5 MEDICAID [employer] [address] [place] [address] [id number] Kwasi Mccabe Self - patient is the insured 5 Medical (General) History Medical History History ICD Code chronic anxiety depression Opioid use disorder Generalized anxiety disorder Insomnia Constipation Alcohol use disorder Surgical History Surgery Date(Month/Year) Hospitalization History Reason Date(Month/Year) Alcohol detox, [facility], 1 Nadine 10/2024
[2025-03-23 09:30] VITALS: BP 140/75; PULSE 73; RESP 20; TEMP 36.5; O2SAT 98
--- NOTE | 2025-03-23 09:41 | ED.GENADULT ---
HPI - General Adult General Chief complaint: Recheck/Abnormal Lab/Rx Stated complaint: med refill Time Seen by Provider: 03/23/25 09:35 History of Present Illness HPI narrative: 4-year-old male present to the emergency department seeking to have his clonazepam medication refilled. Patient has had this medication refilled multiple times by various providers over the last week. Patient just had 14 pills given to him on the in the should have lasted approximately 1 week and they lasted 3 days. Patient presented to the emergency department today stating that these medications had been stolen from him. Patient did not have a police report. Patient states he does have follow-up scheduled for [facility] on 04/01. When patient was told that he would not be getting his medication refill today patient eloped from the emergency department. Related Data Allergies Allergy/AdvReac Type Severity Reaction Status Date / Time No Known Allergies Allergy Verified 03/23/25 09:28 Review of Systems Review of Systems: All systems reviewed & are unremarkable except as noted in HPI and below Exam Narrative: APPEARANCE: Anxious HEAD: normocephalic, atraumatic. EYES: PERRLA/EOMI, conjunctivae clear. NOSE: Normal no drainage EARS:TMS clear with good light reflex. THROAT: Pharynx clear, no exudate. NECK: Supple. No adenopathy, no masses. RESPIRATORY: Airway patent, respirations nonlabored. Clear to auscultation bilaterally, no rales, rhonchi, wheezing. CARDIOVASCULAR: Regular rate and rhythm without murmurs rubs or gallops. ABDOMINAL: Soft, nontender, nondistended, normal bowel sounds MUSCULOSKELETAL: Moves all extremities. Strength/ROM intact, No edema, No calf tenderness. NEURO: Alert. Cranial nerves II through XII intact. Good gait. Good coordination SKIN: Warm, dry. Normal Color PSYCHIATRIC: Anxious affect Course Vital Signs Vital signs: Vital Signs Temperature 97.7 F 03/23/25 09:30 Pulse Rate 73 03/23/25 09:30 Respiratory Rate 20 03/23/25 09:30 Blood Pressure 140/75 03/23/25 09:30 Pulse Oximetry 98 03/23/25 09:30 Oxygen Delivery Room Air 03/23/25 09:30 Temperature 97.7 F 03/23/25 09:30 Pulse Rate 73 03/23/25 09:30 Respiratory Rate 20 03/23/25 09:30 Blood Pressure 140/75 03/23/25 09:30 Pulse Oximetry 98 03/23/25 09:30 Oxygen Delivery Room Air 03/23/25 09:30 [facility] MDM Narrative Medical decision making narrative: After I had told the patient that he needed file a police report for stolen medications and that he would not get further medication refills here the patient promptly eloped from the emergency department. Differential Diagnosis Differential Diagnosis: Clonazepam withdrawal, drug-seeking, medication refill Discharge Plan Discharge Clinical Impression: Drug-seeking behavior Patient Disposition: Elopement After Seen by Prov Patient Language: Macedonian Prescriptions: No Action clonazepam [Klonopin] 1 mg tablet 1 mg PO BID 7 Days Qty: 14 0RF clonazepam [Klonopin] 1 mg tablet 1 mg PO BID 7 Days Qty: 14 0RF Follow-up/Referrals: Reuben,Rojas Viera APRN [Primary Care Provider, Unknown]
--- NOTE | 2025-03-23 09:43 | PC.NURSE ---
Pt eloped after EDP Dr Benton saw pt and refused to refill pts medication.
--- OUTSIDE RECORDS SUMMARY | 2025-03-23 09:49 | XMS_ITS | Clinical Summary ---
Author Organization [facility] Address [address] [place] [address] Care Team Providers Care Microsoft Crm Developer Name Role Phone No, Physician Primary Care Provider [phone] Allergies No known active allergies Medications docusate [...] 02/21/2025 Assessment & Plan (02/21/2025 3:32 PM BOOK OR SCRIPT EDITOR): -CIWA -Electrolytes unremarkable on presentation -Warm and of consult will use Valium instead of IV Ativan Substance use disorder 02/21/2025 Assessment & Plan (02/21/2025 3:32 PM BOOK OR SCRIPT EDITOR): History of opioid use disorder -Continue Suboxone -UDS with benzos and cannabis Encounters Date Type Department Care Team Description 03/21/[address] [address] Sakshi Hines, RN 03/21/[address] [address] Sakshi Hines, RN 03/20/2025 5:07 AM BOOK OR SCRIPT EDITOR - 03/20/2025 7:05 AM [facility] Emergency [address] [address] Acute left-sided low back pain without sciatica (Primary Dx); Left arm pain Discharge Disposition: Discharge to home or self care 03/20/2025 4:06 AM BOOK OR SCRIPT EDITOR - 03/20/2025 4:22 AM [facility] Emergency [address] [address] Discharge Disposition: Left without being seen 03/20/2025 2:57 AM BOOK OR SCRIPT EDITOR - 03/20/2025 3:29 AM [facility] Emergency [address] [address] Discharge Disposition: Left without being seen 03/08/2025 11:18 PM BOOK OR SCRIPT EDITOR - 03/08/2025 11:59 PM BOOK OR SCRIPT EDITOR Hospital Encounter [facility] Emergency, Room R Discharge Disposition: Discharge to home or self care 02/23/2025 Documentation [facility] Warm Hand Off Program [address] [place], [place] [phone] Bree Ca 02/22/2025 [facility] Enrollment [facility] [address] [place], [place] [phone] Mark Wood RRT 02/21/2025 1:25 PM BOOK OR SCRIPT EDITOR - 02/23/2025 8:15 AM BOOK OR SCRIPT EDITOR Hospital Encounter [facility] Medical Care [address] [place] [address] Sandeep Garcia MD Shaba, Winnie, MD Alcohol use disorder (Primary Dx); Substance use disorder Discharge Disposition: Discharge to an IP Rehab facility 02/21/2025 Documentation [facility] [address] [place], [place] [phone] Chelsea Ashton 02/21/2025 Documentation [facility] [address] [place], [place] [phone] Bree Ca from Last 3 Months Social [...] week 02/22/2025 How often do you attend scientology or buddhism serv ices? Never 02/22/2025 Do you belong to any clubs o r organizations such as scientology groups, unions, fraternal or athletic groups, or [...] any time in the past 12 [facility], were you homeless or living in a prison (including now)? Yes 02/22/2025 [facility] Utilities Answer Date Recorded In the [...] Comments Blood Pressure 136/80 03/20/2025 7:28 AM BOOK OR SCRIPT EDITOR Pulse 80 03/20/2025 7:28 AM BOOK OR SCRIPT EDITOR Temperature 36.4 C (97.5 F) 03/20/2025 4:57 AM BOOK OR SCRIPT EDITOR Respiratory Rate 16 03/20/2025 7:28 AM BOOK OR SCRIPT EDITOR Oxygen Saturation 99% 03/20/2025 7:28 AM BOOK OR SCRIPT EDITOR Inhaled Oxygen Concentration - - Weight 94.3 kg (208 lb) 03/20/2025 3:18 AM BOOK OR SCRIPT EDITOR Height 175.3 cm (5' 9) 02/21/2025 8:30 PM BOOK OR SCRIPT EDITOR Body Mass Index 30.72 02/21/2025 8:30 PM BOOK OR SCRIPT EDITOR Plan of Treatment Health Maintenance Due Date [...] Diagnosis Comments EGFR STAT 03/20/2025 5:37 AM BOOK OR SCRIPT EDITOR DIFFERENTIAL AUTO STAT 03/20/2025 5:3 7 AM BOOK OR SCRIPT EDITOR SALICYLATE LEVEL STAT 03/20/2025 5:37 AM BOOK OR SCRIPT EDITOR ACETAMINOPHEN LEVEL STAT 03/20/2025 5 :37 AM BOOK OR SCRIPT EDITOR DRUGS OF ABUSE SCREEN, URINE WITHOUT CONFIRMATION STAT 03/20/2025 5:37 AM BOOK OR SCRIPT EDITOR ETHANOL STAT 03/20/2025 5:37 AM BOOK OR SCRIPT EDITOR THYROID FUNCTION CASCADE STAT 03/20/2025 5:37 AM BOOK OR SCRIPT EDITOR COMPREHENSIVE METABOLIC PANEL STAT 03/20/2025 5:37 AM BOOK OR SCRIPT EDITOR CBC WITH AUTO DIFFERENTIAL STAT 03/20/2025 5:37 AM BOOK OR SCRIPT EDITOR COVID-19 CORONAVIRUS RNA STAT 03/20/2025 5:37 AM BOOK OR SCRIPT EDITOR URINALYSIS AND REFLEX TO MICROSCOPIC AND CULTURE STAT 03/20/2025 5:37 AM BOOK OR SCRIPT EDITOR DRUGS OF ABUSE SCREEN, URINE WITHOUT CONFIRMATION STAT 02/21/2025 12:23 PM BOOK OR SCRIPT EDITOR EGFR STAT 02/21/2025 11:30 AM BOOK OR SCRIPT EDITOR DIFFERENTIAL AUTO STAT 02/21/2025 11: 30 AM BOOK OR SCRIPT EDITOR SALICYLATE LEVEL STAT 02/21/2025 11:3 0 AM BOOK OR SCRIPT EDITOR ETHANOL STAT 02/21/2025 11:30 AM BOOK OR SCRIPT EDITOR ACETAMINOPHEN LEVEL STAT 02/21/2025 1 1:30 AM BOOK OR SCRIPT EDITOR COMPREHENSIVE METABOLIC PANEL STAT 02/21/2025 11:30 AM BOOK OR SCRIPT EDITOR CBC WITH AUTO DIFFERENTIAL STAT 02/21/2025 11:30 AM BOOK OR SCRIPT EDITOR from Last 3 Months Results * COVID-19 Coronavirus RNA Nasopharyngeal (03/20/2025 5:37 AM BOOK OR SCRIPT EDITOR) COVID-19 RNA Negative Negative Nasopharyngeal 03/20/2025 5: 37 AM BOOK OR SCRIPT EDITOR 03/20/2025 5:41 AM BOOK OR SCRIPT EDITOR Narrative [facility] - 03/20/2025 7:17 AM BOOK OR SCRIPT EDITOR Is the patient experiencing any symptoms consistent with COVID (eg. Fever, cough, shortness of breath)?->No What is the reason for testing?->Screening prior to Behavioral health admission Interpretive data Testing performed by [facility]. This test is performed using the [employer] Xpert Xpress CoV-2 plus assay. This is a real-time RT-PCR test intended for the qualitative detection of nucleic acid from the SARS-CoV-2. This assay has been cleared by the [place] Food and Drug administration. The performance characteristics have been verified by the [facility]. Results must be considered in the clinical context, and a negative result does not rule out infection. Interpretive data last revised 2023. Interpretive data Testing performed by [facility]. This test is performed using the [employer] Xpert Xpress CoV-2 plus assay. This is a real-time RT-PCR test intended for the qualitative detection of nucleic acid from the SARS-CoV-2. This assay has been cleared by the [place] Food and Drug administration. The performance characteristics have been verified by the [facility]. Results must be considered in the clinical context, and a negative result does not rule out infection. Interpretive data last revised 2023. Lissa ROMERO LAB MICROBIOLOGY - GEN ERAL ORDERABLES Final Result Performing Organization Address City/[facility]/ZIP Co de Phone Number ZOILA [address] [address] * eGFR (03/20/2025 5:37 AM BOOK OR SCRIPT EDITOR) eGFR >90 >=60 mL/min/1. 73 m2 Comment: [...] last reviewed 2021. Blood 03/20/2025 5:37 AM BOOK OR SCRIPT EDITOR 03/20/2025 5:41 AM BOOK OR SCRIPT EDITOR Lissa ROMERO LAB BLOOD ORDERABLES F inal Result Performing Organization Address City/[facility]/ZIP Co de Phone Number ZOILA [address] [place] [address] * Differential, auto (03/20/2025 5:37 AM BOOK OR SCRIPT EDITOR) Neutrophil abs 4.68 1.50 - 6.50 K/cumm Imm gran abs 0.02 0.00 - 0.10 K/cumm [facility] Lymphocyte abs 2.68 0.80 - 3.30 K/cumm [facility] Monocyte abs 0.53 0.20 - 0.80 K/cumm [facility] Eosinophil abs 0.39 0.00 - 0.50 K/cumm [facility] Basophil abs 0.03 0.00 - 0.10 K/cumm [facility] Neutrophil pct 56.1 % [facility] Comment: Interpretive Data Percent cell count reference ranges are not reported, since discordance with absolute values may lead to misinterpretation of CBC data. Current Interpretive Data was last revised on 2017. Imm gran pct 0.2 % [facility] Comment: Interpretive Data Percent cell count reference ranges are not reported, since discordance with absolute values may lead to misinterpretation of CBC data. Current Interpretive Data was last revised on 2017. Lymphocyte pct 32.2 % [facility] Comment: Interpretive Data Percent cell count reference ranges are not reported, since discordance with absolute values may lead to misinterpretation of CBC data. Current Interpretive Data was last revised on 2017. Monocyte pct 6.4 % [facility] Comment: Interpretive Data Percent cell count reference ranges are not reported, since discordance with absolute values may lead to misinterpretation of CBC data. Current Interpretive Data was last revised on 2017. Eosinophil pct 4.7 % [facility] Comment: Interpretive Data Percent cell count reference ranges are not reported, since discordance with absolute values may lead to misinterpretation of CBC data. Current Interpretive Data was last revised on 2017. Basophil pct 0.4 % [facility] Comment: Interpretive Data Percent cell count reference ranges are not reported, since discordance with absolute values may lead to misinterpretation of CBC data. Current Interpretive Data was last revised on 2017. Blood 03/20/2025 5:37 AM BOOK OR SCRIPT EDITOR 03/20/2025 5:41 AM BOOK OR SCRIPT EDITOR us Lissa ROMERO LAB BLOOD ORDERABLES F inal Result ZOILA [address] [facility] [place] [address] * Thyroid Function [place] (03/20/2025 5:37 AM BOOK OR SCRIPT EDITOR) TSH 0.92 0.30 - 4.20 mcIUnit/mL Blood 03/20/2025 5:37 AM BOOK OR SCRIPT EDITOR 03/20/2025 5:41 AM BOOK OR SCRIPT EDITOR Lissa ROMERO LAB BLOOD ORDERABLES F inal Result Performing Organization Address [facility] Co de Phone Number [address] [place] [address] * (ABNORMAL) Urinalysis reflex to microscopic and culture Urine (03/20/2025 5:37 AM BOOK OR SCRIPT EDITOR) Color, ur Yellow Yellow Clarity, ur Clear Clear [facility] Specific gravity, ur 1.019 1.003 - 1.030 [facility] pH, urine 7.5 [facility] Comment: Interpretive Data U rine pH is affected by diet, medications, systemic acid-base disturbances, and renal tubular function. pH may affect urinary stone formation. For example, urine pH below 6.0 may help reduce the tendency for calcium phosphate stones and pH greater than 6.0 may reduce the tendency for uric acid stone formation. Source: [facility] Current Interpretive Data was last revised on 2017 Protein, ur ql Negative Negative [facility] Glucose, ur ql Negative Negative [facility] Ketones, ur Negative Negative [facility] Bilirubin, ur Negative Negative [facility] Blood, ur Negative Negative [facility] Urobilinogen, ur 2.0(A) <2.0 mg/dL [facility] Nitrite, ur Negative Negative [facility] Leukocyte esterase, ur Negative Negative [facility] UA reflex comment Reflex conditions for microscopic UA and culture not met. [facility] Urine 03/20/2025 5:37 AM BOOK OR SCRIPT EDITOR 03/20/2025 5:41 AM BOOK OR SCRIPT EDITOR Lissa ROMERO LAB MICROBIOLOGY - GEN ERAL ORDERABLES Final Result Performing Organization Address City/[facility]/ZIP Co de Phone Number [address] [place] [address] * (ABNORMAL) CBC with auto differential (03/20/2025 5:37 AM BOOK OR SCRIPT EDITOR) [facility] WBC 8.33 3.80 - 9.90 K/cumm Hgb 12.9(L) 13.0 - 17.5 g/dL [facility] Hct 38.1(L) 38.9 - 50.3 % [facility] Plt 226 150 - 400 K/cumm [facility] MPV 10.8 9.1 - 12.3 fL [facility] RBC 4.39 4.30 - 5.80 M/cumm [facility] MCV 86.8 81.3 - 96.4 fL [facility] MCH 29.4 27.1 - 33.3 pg [facility] MCHC 33.9 32.3 - 35.7 g/dL [facility] RDW CV 13.0 11.1 - 14.9 % [facility] RDW SD 41.0 35.7 - 48.1 fL [facility] NRBC abs 0.00 0.00 - 0.01 K/cumm [facility] Blood Venous blood specimen / Unknown 03/20/2025 5:37 AM BOOK OR SCRIPT EDITOR 03/20/2025 5:41 AM BOOK OR SCRIPT EDITOR Lissa ROMERO LAB BLOOD ORDERABLES F inal Result [facility] [address] [facility] [place] [address] * (ABNORMAL) Drugs of Abuse Screen, Urine without Confirmation (03/20/2025 5:37 AM BOOK OR SCRIPT EDITOR) [facility] Amphetamine, ur Not Detected CutOff 500ng/mL Comment: Interpretive Data - Amphetamines: Samples containing greater than 500 ng/mL d-methamphetamine or other cross-reacting amphetamine compounds are reported as positive. Amphetamine immunoassays are subject to significant false positive rates due to cross-reactivity of non-amphetamine drugs. Confirmatory testing required for definitive results. Current Interpretive Data was last reviewed 2022. Barbiturates, ur Not Detected CutOff 200ng/mL [facility] Comment: Interpretive Data - Barbiturates: Samples containing greater than 200 ng/mL secobarbital or other cross-reacting barbiturate compounds are reported as positive. False positive and false negative results are possible. Confirmatory testing required for definitive results. Current Interpretive Data was last reviewed 2022. Benzodiazepines, ur Screen Positive, presumptive (A) CutOff 100ng/mL [facility] Comment: Interpretive Data - Benzodiazepines: Samples containing greater than 100 ng/mL nordiazepam or other cross-reacting compounds are reported as positive. False positive and false negative results are possible. Confirmatory testing required for definitive results. Current Interpretive Data was last reviewed 2022. Cannabinoids, ur Screen Positive, presumptive (A) CutOff 50 ng/mL [facility] Comment: Interpretive Data - Cannabinoids: Samples containing greater than 50 ng/mL delta-9 THC -COOH or other cross- reacting compounds are reported as positive. False positive and false negative results are possible. Confirmatory testing required for definitive results. Current Interpretive Data was last reviewed 2022. Cocaine, ur Not Detected CutOff 150ng/mL [facility] Comment: Interpretive Data - Cocaine: Samples containing greater than 150 ng/mL benzoylecgonine or other cross- reacting compounds are reported as positive. False positive and false negative results are possible. Confirmatory testing required for definitive results. Current Interpretive Data was last reviewed 2022. Fentanyl, Ur Not Detected CutOff 5 ng/mL [facility] Comment: Interpretive Data - Fentanyl: Samples containing greater than 5 ng/mL norfentanyl, fentanyl, or other cross-reacting fentanyl compounds are reported as positive. False positive and false negative results are possible. Confirmatory testing required for definitive results. Current Interpretive Data was last reviewed 2023. Methadone, ur Not Detected CutOff 300ng/mL [facility] Comment: Interpretive Data - Methadone: Samples containing greater than 300 ng/mL d,l-methadone or other cross-reacting compounds are reported as positive. False positive and false negative results are possible. Confirmatory testing required for definitive results. Current Interpretive Data was last reviewed 2022. Opiates, ur Not Detected CutOff 300ng/mL [facility] Comment: Interpretive Data - Opiates: Samples containing [...] revised on 2017. Urine 03/20/2025 5:37 AM BOOK OR SCRIPT EDITOR 03/20/2025 5:41 AM BOOK OR SCRIPT EDITOR Narrative ZOILA - 03/20/2025 6:06 AM BOOK OR SCRIPT EDITOR Drug of Abuse screening is performed by immunoassay for medical purposes only. This is not to be used for Pain Management purposes. Lissa ROMERO LAB URINE ORDERABLES F inal Result [facility] [address] [facility] [place] [address] * Ethanol (03/20/2025 5:37 AM BOOK OR SCRIPT EDITOR) Ethanol <10 <=10 mg/dL Comment: Interpretive Data Legal limit of intoxication > or = 80 mg/dL Levels > or = 400 mg/dL are potentially TOXIC. Current interpretive data was last revised on 2018. Blood 03/20/2025 5:37 AM BOOK OR SCRIPT EDITOR 03/20/2025 5:41 AM BOOK OR SCRIPT EDITOR Lissa ROMERO LAB BLOOD ORDERABLES F inal Result Performing Organization Address [facility] Co de Phone Number [address] [place] [address] * Acetaminophen level (03/20/2025 5:37 AM BOOK OR SCRIPT EDITOR) Acetaminophen <5 <=5 mcg/mL Comment: Interpretive Data Significant hepatic injury may occur and treatment with n-acetyl cysteine is generally recommended if the acetaminophen level exceeds: 150 mcg/mL at 4 hours after ingestion 75 mcg/mL at 8 hours after ingestion 38 mcg/mL at 12 hours after ingestion 19 mcg/mL at 16 hours after ingestion Consult toxicology or poison control ([phone]) for unknown ingestion time. Current interpretive data was last revised 2022. Blood 03/20/2025 5:37 AM BOOK OR SCRIPT EDITOR 03/20/2025 5:41 AM BOOK OR SCRIPT EDITOR Lissa ROMERO LAB BLOOD ORDERABLES F inal Result Performing Organization Address [facility] Co de Phone Number [address] [place] [address] * Salicylate level (03/20/2025 5:37 AM BOOK OR SCRIPT EDITOR) Salicylate <1.0 <=1.0 mg/dL Comment: Interpretive Data Toxic: 30 mg/dL or greater. Current interpretive data was last revised 2022. Blood 03/20/2025 5:37 AM BOOK OR SCRIPT EDITOR 03/20/2025 5:41 AM BOOK OR SCRIPT EDITOR Lissa ROMERO LAB BLOOD ORDERABLES F inal Result Performing Organization Address [facility] Co de Phone Number [place] [id number] [facility] [place] [address] * Comprehensive metabolic panel (03/20/2025 5:37 AM BOOK OR SCRIPT EDITOR) Sodium 140 135 - 145 mmol/L Potassium, pl 4.0 3.3 - 4.9 mmol/L [facility] Chloride 103 97 - 110 mmol/L [facility] CO2 27 22 - 32 mmol/L [facility] Anion gap 10 2 - 15 mmol/L [facility] BUN 14 6 - 25 mg/dL [facility] Creatinine 0.90 0.80 - 1.30 mg/dL [facility] Glucose 105 70 - 199 mg/dL [facility] Comment: Interpretive Data Fasting glucose >/= 126 [...] 2022. Calcium 8.9 8.5 - 10.3 mg/dL [facility] Bilirubin, total 0.3 0.1 - 1.2 mg/dL [facility] Protein, pl 6.7 6.5 - 8.5 g/dL [facility] Albumin 4.2 3.5 - 5.0 g/dL [facility] Alk phos 68 40 - 130 Units/L [facility] ALT 15 7 - 55 Units/L [facility] AST 25 10 - 50 Units/L [facility] Blood 03/20/2025 5:37 AM BOOK OR SCRIPT EDITOR 03/20/2025 5:41 AM BOOK OR SCRIPT EDITOR Lissa ROMERO LAB BLOOD ORDERABLES F inal Result [facility] [address] [facility] Department of Laboratories [place], [place] [id number] * (ABNORMAL) Drugs of Abuse Screen, Urine without Confirmation (02/21/2025 12:23 PM BOOK OR SCRIPT EDITOR) [facility] Amphetamine, ur Not Detected CutOff 500ng/mL [...] on 2017. Urine 02/21/2025 12:2 3 PM BOOK OR SCRIPT EDITOR 02/21/2025 12:25 PM BOOK OR SCRIPT EDITOR Narrative ZOILA QUINTANA ([place]) - 02/21/2025 1:10 PM BOOK OR SCRIPT EDITOR Drug of Abuse screening is performed by immunoassay for medical purposes only. This is not to be used for Pain Management purposes. us Malick ROMERO LAB URINE ORDERABLES Final R esult ZOILA QUINTANA ([place]) [address] [facility] Department [place] [address] * eGFR (02/21/2025 11:30 AM BOOK OR SCRIPT EDITOR) eGFR >90 >=60 mL/min/1. 73 m2 Comment: [...] reviewed 2021. Blood 02/21/2025 11:3 0 AM BOOK OR SCRIPT EDITOR 02/21/2025 11:34 AM BOOK OR SCRIPT EDITOR us Malick ROMERO LAB BLOOD ORDERABLES Final R esult [facility] ([place]) [address] [facility] Department [place] [address] * Differential, auto (02/21/2025 11:30 AM BOOK OR SCRIPT EDITOR) Pathologist [facility] Neutrophil abs 4.56 1.50 - 6.50 K/cumm Imm gran abs 0.01 0.00 - 0.10 K/cumm [facility] ([place]) Lymphocyte abs 2.59 0.80 - 3.30 K/cumm [facility] ([place]) Monocyte abs 0.52 0.20 - 0.80 K/cumm [facility] ([place]) Eosinophil abs 0.27 0.00 - 0.50 K/cumm [facility] ([place]) Basophil abs 0.03 0.00 - 0.10 K/cumm [facility] ([place]) Neutrophil pct 57.1 % [facility] ([place]) Comment: Interpretive Data Percent cell count reference [...] on 2017. Blood 02/21/2025 11:3 0 AM BOOK OR SCRIPT EDITOR 02/21/2025 11:34 AM BOOK OR SCRIPT EDITOR Malick ROMERO LAB BLOOD ORDERABLES Final R esult ZOILA QUINTANA ([place]) [address] [facility] Department of Laboratories [place], [place] [id number] * (ABNORMAL) CBC with auto differential (02/21/2025 11:30 AM BOOK OR SCRIPT EDITOR) WBC 7.98 3.80 - 9.90 K/cumm Hgb [...] [facility] ([facility]) Blood 02/21/2025 11:3 0 AM BOOK OR SCRIPT EDITOR 02/21/2025 11:34 AM BOOK OR SCRIPT EDITOR Malick ROMERO LAB BLOOD ORDERABLES Final R esult Performing Organization Address City/[facility]/ZIP Co de Phone Number ZOILA QUINTANA ([place]) [address] [facility] [place] [address] * Ethanol (02/21/2025 11:30 AM BOOK OR SCRIPT EDITOR) Ethanol <10 <=10 mg/dL Comment: Interpretive Data Legal limit of intoxication > or = 80 mg/dL Levels > or = 400 mg/dL are potentially TOXIC. Current interpretive data was last revised on 2018. Blood 02/21/2025 11:3 0 AM BOOK OR SCRIPT EDITOR 02/21/2025 11:34 AM BOOK OR SCRIPT EDITOR Malick ROMERO LAB BLOOD ORDERABLES Final R esult ZOILA QUINTANA ([place]) [address] [facility] [place] [address] * Acetaminophen level (02/21/2025 11:30 AM BOOK OR SCRIPT EDITOR) Acetaminophen <5 <=5 mcg/mL Comment: Markedly elevated [...] after ingestion Consult toxicology or poison control ([phone]) for unknown ingestion time. Current interpretive data was last revised 2022. Blood 02/21/2025 11:3 0 AM BOOK OR SCRIPT EDITOR 02/21/2025 11:34 AM BOOK OR SCRIPT EDITOR Malick ROMERO LAB BLOOD ORDERABLES Final R esult Performing Organization Address [facility] Co de Phone Number ZOILA [facility] ([place]) [address] [facility] [place] [address] * Salicylate level (02/21/2025 11:30 AM BOOK OR SCRIPT EDITOR) Salicylate <5.0 <=5.0 mg/dL Comment: Interpretive Data Toxic: 30 mg/dL or greater. Current interpretive data was last revised 2022. Blood 02/21/2025 11:3 0 AM BOOK OR SCRIPT EDITOR 02/21/2025 11:34 AM BOOK OR SCRIPT EDITOR Malick ROMERO LAB BLOOD ORDERABLES Final R esult Performing Organization Address City/[facility] Co de Phone Number ZOILA [facility] ([place]) [address] [facility] [place] [address] * Comprehensive metabolic panel (02/21/2025 11:30 AM BOOK OR SCRIPT EDITOR) Sodium 139 135 - 145 mmol/L Potassium, pl 3.9 3.3 - 4.9 mmol/L [facility] ([place]) Chloride 99 97 - 110 mmol/L [facility] ([place]) CO2 31 22 - 32 [...] [facility] (GRETCHEN) Blood 02/21/2025 11:3 0 AM BOOK OR SCRIPT EDITOR 02/21/2025 11:34 AM BOOK OR SCRIPT EDITOR us [facility] BLOOD ORDERABLES Final R esult [facility] (GRETCHEN) [facility] Department [place] [address] from Last 3 Months Insurance [employer] Advance Directives For more information, please contact: [phone] * Full Code (Latest Code Status on File) Date Activated Date Inactivated Comments 02/21/2025 4:08 PM 02/23/2025 12:20 PM Care Teams Microsoft Crm Developer Relationship Specialty Start Date End Date No, Physician PCP - General 10/27/24
== END 2025-03-23 09:50 | disposition left against medical advice (07) ==
PROVIDERS: Emergency Provider Emergency Medicine; PCP Registered Nurse
DX: Z76.5 Malingerer [conscious simulation] (principal)
CPT/HCPCS: 99281